=== PATIENT | female | born 1955 | race Caucasian/White ===

== ENCOUNTER → 2018-11-01 | Outpatient (CLI) | payer MEDICARE, MEDICAID, SELFPAY ==
--- NOTE | 2018-10-31 16:30 | LES_PTH ---
PATIENT: ELISE QUINONEZ LOC: [facility] U#:[id number] AGE/SX: 63/F ROOM: RE11/01/[address]: Dr. Don Sanchez MD : [id number] BED: DIS: 11/01/2018 SPEC #: [id number] RECD: 10/31/18 17:43 STATUS: MARCIN REAna #: [id number] TAMRA: 10/31/18 16:[address]: Don Sanchez DEPT: SURGICAL PATHOLOGY RECD BY: Rudy Raymond ENTERED: 11/02/18 11:16 SP TYPE: Lesion OTHR DR: Dr. Jose Tafoya, DO Tissues: Skin of eyelid, NOS Procedures: Surgery Specimen Level IV HEADER OPERATION: Lesion biopsy RLL PRE-OP DIAGNOSIS: Ulcerated lesion RLL present x six months 0.5 cm TISSUE SUBMITTED: Lesion biopsy RLL MICROSCOPIC DIAGNOSIS RLL lesion, biopsy: Benign verrucous keratosis with focal seborrheic keratosis-like features. Negative for malignancy. CHRIS:ziyad 11/03/18 MICROSCOPIC DESCRIPTION Slides are reviewed. GROSS DESCRIPTION Received in fixative is one container labeled with the patient's name and designated right lower lid lesion. The specimen consists of a piece of guadalupe-white skin measuring 0.3 x 0.3 x 0.1 cm. The specimen is totally submitted in one cassette. / CHRIS:ziyad 11/02/18 TC:5 CPT: 70366
== END | disposition home or self-care (01) ==
LOC: LABSPEC 07:36
PROVIDERS: Family Provider Student in an Organized Health Care Education/Training Program; PCP Student in an Organized Health Care Education/Training Program; Referring Provider Ophthalmology; Visit Provider Ophthalmology
DX: L82.0 Inflamed seborrheic keratosis (principal)
CPT/HCPCS: 88305

== ENCOUNTER 2020-05-20 11:40 | Day surgery (SDC) | payer MEDICARE, MEDICAID, SELFPAY ==
--- NOTE | 2020-05-17 20:15 | PCM.HP.BLA ---
History and Physical Date of Admission: 05/20/20 HISTORY AND PHYSICAL ? Vandana Vernon 1955 ? ? REFERRING PHYSICIAN: Antony Maldonado MD ? CHIEF COMPLAINT: port placement ? HPI: The patient is a 65 year old female presents with metastatic lung cancer and need for chemotherapy and thus need for VAD. She denies previous central line placements. She denies fractures of clavicle or ribs. She denies previous deep venous thromboses. She does note bruising easily. She has a chronic cough. ? ? PAST MEDICAL HISTORY Acid reflux ? Anxiety ? Asthma ? COPD (chronic obstructive pulmonary disease) (HCC) ? DJD (degenerative joint disease), lumbar ? Hypercholesterolemia ? Hypertension ? Metastatic lung cancer ? PAST SURGICAL HISTORY ? APPENDECTOMY ? ? ? DELIVERY ONLY ? 1987,1991 ? , low transverse ? ? Medications ? LORazepam (ATIVAN) 0.5 mg Take 0.5-1 tablets by mouth three times daily as needed for up to 30 days. ? ibuprofen (MOTRIN) 800 mg tablet Take 1 tablet by mouth every 8 hours as needed for Pain. Take with food. ? VITAMIN E ORAL Take 1 capsule by mouth once daily. ? budesonide-formoterol (SYMBICORT) 160-4.5 mcg/actuation inhaler Inhale 2 Puffs as instructed twice daily. ? lisinopril (ZESTRIL, PRINIVIL) 40 mg tablet Take 1 tablet by mouth once daily. ? amLODIPine (NORVASC) 5 mg tablet Take 1 tablet by mouth once daily. ? escitalopram oxalate (LEXAPRO) 20 mg tablet Take 1 tablet by mouth once daily. ? albuterol HFA (VENTOLIN HFA) 90 mcg/actuation inhaler Inhale 2 Puffs as instructed every 4 hours as needed for Wheezing/Shortness of Breath. ? Calcium Citrate 250 mg calcium tab 2 tablets twice daily with meal ? Cholecalciferol, Vitamin D3, 125 mcg (5,000 unit) cap Take 1 capsule by mouth once daily. With a meal ? vitamin b complex tab Take 1 tablet by mouth once daily. In the morning ? pravastatin (PRAVACHOL) 20 mg tablet Take 1 tablet by mouth once daily. ? albuterol (PROVENTIL) 2.5 mg /3 mL (0.083 %) nebulizer solution Use 3 mL via nebulizer every 4 hours as needed for Wheezing/Shortness of Breath. Use over 5-15minutes. ? pantoprazole DR (PROTONIX) 20 mg tablet Take 1 tablet by mouth daily before breakfast. Take on empty stomach, 1/2 hr before meal. ? tiotropium bromide (SPIRIVA RESPIMAT) 2.5 mcg/actuation mist inhale 2 puffs by mouth once daily as directed ? polyethylene glycol 3350 (MIRALAX) 17 gram/dose powder Mix one capful in a non-carbonated beverage once a day ? COMPOUNDED PRESCRIPTION NEBULIZER KIT, MEDICINE CUP, TUBING AND SUPPLIES, FILTERS DX J45.909 ? ? ALLERGIES: Penicillins, Sudafed [Pseudoephedrine Hcl], and Zoloft [Sertraline Hcl] ? PERSONAL HISTORY: Social History Tobacco Use ? Smoking status: Former Smoker ? ? Packs/day: 1.00 ? ? Years: 45.00 ? ? Pack years: 45.00 ? ? Types: Cigarettes ? ? Quit date: 04/25/2018 ? ? Years since quittin.0 ? Smokeless tobacco: Never Used Substance Use Topics ? Alcohol use: No ? Drug use: No ? FAMILY HISTORY ? Diabetes Mother ? ? COPD Mother ? ? 80 ? Cancer Father ? ? 50 ? Diabetes Maternal Grandmother ? ? Cancer Sister ? ? Lung 74 ? ? REVIEW OF SYSTEMS: General - denies fevers, denies anorexia, denies weight loss Cardiovascular - denies chest pain, denies history of [place] Pulmonary - has shortness of breath, denies coughing up blood Gastrointestinal - has acid reflux, denies abdominal pain, denies hematemesis, denies blood in stools Neurological - denies seizures, denies chronic numbness/weakness of extremities, denies chronic headaches Genitourinary - denies burning with urination, denies blood in urine Hematological - denies spontaneous/prolonged bleeding Skin - denies nonhealing skin wounds Musculoskeletal - has back pain, had foot fracture in past Endocrine - denies diabetes, no thyroid problems Psychological ? denies hallucinations ? PHYSICAL EXAMINATION: General: The patient is 65 year old female, well nourished, well hydrated in no acute distress. The patient is oriented to time, place, and person. VITALS: Blood pressure 162/94, pulse 102, temperature 36.9 ?C (98.4 ?F), temperature source Temporal, resp. rate 28, Ht: 5'3 weight 89.8 kg (198 lb), SpO2 92 %. Body mass index is 35.92 kg/m?. Head ? Normocephalic. EOM intact with sclera clear and no icterus noted. Mouth with mucus membranes moist. Neck - supple with no jugular venous distention noted. Trachea is midline. Lungs ? decreased breath sounds. No rales/rhonchi/wheezing noted. No labored breathing noted, such as retractions. No cough heard. Heart ? normal S1 and S2 auscultated. No rubs/clicks/murmurs noted. Regular rate. Abdomen ? soft and benign. Normal bowel sounds. No abdominal bruits noted. Difficult to determine if any masses or organomegaly due to body habitus. Extremities ? no calf tenderness noted. No pitting edema noted. Skin ? normal skin integrity. Neurological ? gait normal, no focal deficits noted. Psych ? calm and appropriate ? ? IMPRESSION: metastatic lung cancer - need for IV access ? PLAN: I have discussed the above with the patient and her son who is present with her. I have offered placement of portacath. I have explained the procedure to the patient. I have counseled the patient as to the risks of the procedure, including but not limited to: infection, bleeding, injury to any blood vessels/nerves, scar tissue, injury to the lungs such as hemothorax and/or pneumothorax, thromboses of blood vessels, line sepsis, infection of port, non functioning of port, inability to place VAD, wound infections, complications of anesthesia, etc. ? the patient understands. ? The patient was offered a surgery/procedure at a [facility] facility. The provider and patient have discussed in detail the risk of exposure to and/or potential harm posed by the COVID-19 virus with having a surgery/procedure at this time versus the risk of? delaying the surgery/procedure. It is not possible to know either the risk of delaying the surgery or procedure or chance of getting an infection with perfect accuracy, but a joint decision was made between the patient and the provider ?to proceed at this time with the scheduled surgery/procedure. ? The patient wishes to proceed. I have answered all questions to the patient?s satisfaction and the patient has no further questions.
[2020-05-20] VITALS (7 sets, daily range): BP systolic 109–132; BP diastolic 80–97; PULSE 93–98; RESP 16; TEMP 36.2–37.3; O2SAT 94–100; BMI 35.2
[2020-05-20] MEDS: Lactated Ringers 1,000 ML 75 ML IV (12:20)
--- NOTE | 2020-05-20 14:01 | PCM.OPRPT ---
Report of Operation Date of Procedure: 05/20/20 Pre-Operative Diagnosis: metastatic lung cancer, need for IV access with portacath Post-Operative Diagnosis: same Surgery/Procedure Performed:: placement of permanent indwelling tunnelled catheter in right internal jugular vein with subcutaneous port Description of Surgical Findings:: normal right IJ anatomy to SVC Type of Anesthesia:: Local MAC Anesthesiologist: Herbie Ko Specimen's removed: none Estimated Blood Loss (mL): < 10 ml Fluids Replaced: 1000 ml RL Description of Procedure: After informed consent was given, the patient was brought to the Operating Room. Appropriate time out protocol was followed. The patient was then placed in the supine position. The patient was then given IV conscious sedation for anesthesia. The patient?s upper chest and neck were then prepped with a surgical skin preparation and sterile surgical drapes were placed. The ultrasound machine was used for real time imaging. The ultrasound transducer was placed in a sterile sheath. After proper landmarks were ascertained, the skin at the right neck and chest area were infiltrated with local anesthetic. Using the ultrasound transducer, the needle trocar was directed into the right internal jugular vein. There was good aspiration of venous blood. A wire was then threaded into the needle trocar and this was visualized under fluoroscopy to ensure that the wire was in the right internal jugular vein. Once this was done, then the needle trocar was removed. A small skin jewels was made with an 11 blade knife at the wire entrance site. The dilator with the introducer sheath attached was then placed over the wire into the right internal jugular vein via the Seldinger technique and this was visualized under fluoroscopy. The dilator and sheath were in proper position as visualized by fluoroscopy in real time. The wire and dilator were then removed. The catheter was then threaded into the introducer sheath and was positioned with its tip at the junction of the superior vena cava and the right atrium as visualized under fluoroscopy in real time. I personally reviewed all of the above fluoroscopic images and noted that the positions of the wire and catheter were correct so that the next step could be conducted. The catheter was flushed with a heparin saline mixture prior to placement. A subcutaneous pocket was then created caudad to the catheter insertion site. A transverse skin incision was made after the skin and subcutaneous tissues were infiltrated with local anesthetic. Blunt dissection was then used to create a space large enough for placement of the subcutaneous port. Hemostasis was carefully controlled with electrocautery. The port was sutured to the subcutaneous fascia using vicryl suture at three sites. The catheter was then tunneled into the subcutaneous pocket. The excess catheter was transected. The catheter was then attached to the subcutaneous port using montessori toddler teacher?s guidelines. The port was then placed in the subcutaneous pocket and the sutures were ligated. The subdermal incisional sites were reapproximated with interrupted vicryl suture. The skin was reapproximated with monocryl suture in a subcuticular fashion. Cavilon and steristrips were used for reinforcement of the skin closure and a sterile opsite dressing was applied. Sponge, needle, and instrument count were verified and correct at the time of skin closure. The patient was brought to the Recovery Room in stable condition Grafts/Implants Used: PowerPort Lot [id number] exp 2021-10-31 - Complications none noted - Admit VTE Documentation VTE Present on Admission: Yes VTE Mechan Device Prophylaxis: SCD's
--- NOTE | 2020-05-20 14:07 | DCINST_ITS ---
Discharge Diet: No Restrictions Discharge Activity: Return to Normal Activity, May not drive while taking narcotic pain medications. Call your doctor if your incision/area has: Continuous Slow Oozing, Foul Smelling Discharge Call your doctor if you observe: Fever of 101 or Higher Additional Instructions: Recommended pain control regimen - May take 600 mg ibuprofen (Motrin) and then in 3-4 hours, may take 650 mg acetaminophen (Tylenol), then in 3-4 hours may take 600 mg ibuprofen, then in 3- 4 hours may take 650 mg acetaminophen and so on for 2-3 days May take narcotic pain medication for pain that is not controlled by above and at night for comfort through the night Leave dressings in place May get dressings wet in shower - do not scrub in the area and pat dry Do not soak - no tub baths/swimming Allergies/Adverse Reactions: Allergies pseudoephedrine HCl [From Sudafed] Allergy (Verified 04/24/16 18:07) Shortness of breath sertraline [From Zoloft] Allergy (Verified 05/16/20 14:01) Shortness of breath Medications to take at Discharge Albuterol Inhaler [Ventolin Hfa] 1 - 2 puff INHALATION Q4H PRN PRN #1 inhaler 05/24/15 Amlodipine [Norvasc] 5 mg PO DAILY #30 tablet 05/24/15 Lisinopril [Zestril] 40 mg PO DAILY #30 tablet 05/24/15 Omeprazole [Prilosec] 40 mg PO DAILY 04/24/16 Budesonide/Formoterol 160/4.5 [Symbicort 160/4.5 Mcg Inhaler (SP)] 2 puff INHALATION BID 05/16/20 Cyanocobalamin (Vitamin B-12) [Vitamin B-12] 50 mcg PO DAILY 05/16/20 Escitalopram Oxalate 20 mg PO DAILY 05/16/20 Lorazepam [Ativan] 0.5 mg PO TID 05/16/20 Pantoprazole Sodium [Protonix] 20 mg PO DAILY 05/16/20 Vitamin E Mixed [Vitamin E] 1,000 unit PO 05/16/20 Hydrocodone Bitart/Apap 5-325 [[place] 5MG-325MG] 1 tablet PO Q4H PRN PRN 5 Days #20 tablet 05/20/20 The following prescriptions were given: Hydrocodone Bitart/Apap 5-325 [[place] 5MG-325MG] 1 tablet PO Q4H PRN PRN 5 Days #20 tablet PRN Reason: Pain Transmission Status: Received by [facility] Primary Care Physician: Jose Tafoya DO [Primary Care Provider] - Test Results: Test results from this visit will be discussed in further detail at your follow- up appointment, if applicable. Please Follow Up With: Elicia Carver MD - call if any questions/concerns - no follow up required to avoid exposure in this COVID crisis When: follow up in oncology clinic
--- NOTE | 2020-05-20 14:18 | RAD_ITS ---
STUDY: X-RAY CHEST REASON FOR EXAM: Female, 65 years old. PCXR FOR PORT INSERTION TECHNIQUE: Single AP portable view of the chest. COMPARISON: None. FINDINGS: A right-sided luz catheter as been placed. The tip is in the midportion of the superior vena cava. Patchy infiltrates in both lower lobes slightly worse on the left side. There is no demonstrated pleural abnormality. Normal size heart. Normal mediastinum and danny. Normal visualized pulmonary arteries. There is atherosclerotic calcification of the aortic arch with tortuosity. There are diffuse degenerative changes of the visualized thoracic spine. Normal visualized ribs, clavicles, and shoulders. Hiatal hernia. RAD/CXR for Line Placement IMPRESSION: The tip of the right portacatheter is in the midportion of the superior vena cava. Bibasilar atelectasis and/or infiltrates worse at the left lung base. Hiatal hernia. Electronically Signed: Robert Petty, at 14:33 EST , Service support ,
== END 2020-05-20 15:22 | disposition home or self-care (01) ==
LOC: SDC 11:41 → AC 11:44
PROVIDERS: PCP Student in an Organized Health Care Education/Training Program; Referring Provider Surgery; Visit Provider Surgery
PROC: (CPT 36561; principal; 2020-05-20 13:15)
DX: Z45.2 Encounter for adjustment and management of vascular access device (principal); C34.90 Malignant neoplasm of unspecified part of unspecified bronchus or lung; C79.9 Secondary malignant neoplasm of unspecified site; I10 Essential (primary) hypertension; J44.9 Chronic obstructive pulmonary disease, unspecified; E78.00 Pure hypercholesterolemia, unspecified; K21.9 Gastro-esophageal reflux disease without esophagitis; F32.9 Major depressive disorder, single episode, unspecified; F41.9 Anxiety disorder, unspecified; Z88.0 Allergy status to penicillin; Z79.51 Long term (current) use of inhaled steroids; Z79.899 Other long term (current) drug therapy; Z87.891 Personal history of nicotine dependence; Z20.828 Contact with and (suspected) exposure to other viral communicable diseases
CPT/HCPCS: 00532; 36561; 71045; 77001; 87426; C9803; J7120; C1788; J2405

== ENCOUNTER 2020-09-17 12:45 | Inpatient (IN) | payer MEDICARE, MEDICAID, SELFPAY ==
[2020-05-20 12:12] VITALS: BMI 35.2
[2020-09-17] VITALS (22 sets, daily range): BP systolic 85–109; BP diastolic 53–77; PULSE 97–134; RESP 17–25; TEMP 36.3–37.7; O2SAT 91–100; BMI 34.0
--- NOTE | 2020-09-17 13:04 | EKG12_ITS ---
Test Reason : SOB Blood Pressure : / mmHG Vent. Rate : 129 BPM Atrial Rate : 129 BPM P-R Int : 130 ms QRS Dur : 074 ms QT Int : 302 ms P-R-T Axes : 020 030 058 degrees QTc Int : 442 ms Sinus tachycardia Otherwise normal ECG Confirmed by ANGELA CARDONA, GISSEL ([id number]), editor publications AKIRA HELM ([id number]) on 09/18/2020 12:46:20 PM Referred By: ALAYNA/SHANIKA Confirmed By:GISSEL MILLER MD
--- NOTE | 2020-09-17 13:07 | NURSING ---
NO OLD EKGS
[2020-09-17] MEDS: Albuterol 2.5 MG/3 ML VIAL.NEB. INHALATION ×4 (13:20→18:51)
[2020-09-17] MEDS: Ipratropium/Albuterol Sulfate 3 ML AMPUL.NEB INHALATION (13:22)
[2020-09-17] MEDS: Morphine 4 MG/ML Syringe IV (13:38)
[2020-09-17] MEDS: Acetaminophen 500 MG Tablet 1000 MG PO (13:38)
[2020-09-17 13:39] LABS: Absolute Neutrophil Count 15.7 X10^3/uL (2.0-7.7); Basophil# 0.03 X10^3/uL; Basophil% 0.2 % (0-1); Hematocrit 26.8 % (37-47); Hemoglobin 8.8 g/dL (12.0-15.0); Lymphocyte % 4.5 % (19-41); Mean Corp Hgb Conc 32.8 g/dL (32-36); Mean Corpuscular Hgb 35.9 pg (27.0-32.0); Mean Corpuscular Volume 109.4 fL (81-99); Mean Platelet Vol. 9.3 fl (6.2-12.0); Monocyte# 1.19 X10^3/uL; Monocyte% 6.6 % (0-10); NRBC Flagged by Analyzer 0 % (0-5); Neutrophil # 15.74 X10^3/uL (2.7-7.7); Neutrophil % 87.8 % (47-70); POSITIVE MORPHOLOGY YES; Platelet Count 293 K/mm3 (150-450); RBC Distribution Width CV 21.9 % (11.6-14.6); RBC Distribution Width SD 87.4 fl (35.1-43.9); Red Blood Count 2.45 M/mm3 (4.2-5.4); White Blood Count 17.9 K/mm3 (4.4-11.0)
[2020-09-17] MEDS: Ondansetron 4 MG/2 ML Vial IV (13:39)
[2020-09-17] MEDS: MethylPREDNISolone 125 MG/2 ML Vial IV (13:39)
[2020-09-17 13:42] LABS: Differential Indicated SCAN CRITERIA MET
[2020-09-17 13:48] LABS: International Normalized Ratio 1.1; Prothrombin Time (Protime)PT. 14.2 SECONDS (11.7-14.9)
--- NOTE | 2020-09-17 13:50 | RAD_ITS ---
STUDY: X-RAY CHEST REASON FOR EXAM: Female, 65 years old. Cough TECHNIQUE: Single AP portable view of the chest. COMPARISON: Comparison is made with prior study dated 05/20/2020. FINDINGS: A right-sided Port-A-Cath is in situ with the tip in the midportion of the superior vena cava. This is unchanged. EKG electrodes are seen. Since prior study, there has been increase in the bibasilar markings worse at the left base suggestive of superimposed infiltrates on chronic basilar scarring. Hyperinflation. Decreased bronchovascular markings in the upper lobes suggestive of COPD. Normal size heart. Normal mediastinum and danny. Normal visualized pulmonary arteries. There is atherosclerotic calcification of the aortic arch with tortuosity. Normal visualized thoracic spine. Normal visualized ribs, clavicles, and shoulders. There is no demonstrated abnormality of the visualized soft tissue structures of the upper abdomen. RAD/Chest 1 View (Portable) IMPRESSION: Findings suggestive of bibasilar infiltrates worse on the left side superimposed on chronic basilar scarring. Electronically Signed: Robert Petty MD at 14:23 EDT , Service support ,
[2020-09-17 13:56] LABS: ALB/GLOB Ratio 0.8 RATIO (0.9-2.4); AST(SGOT) 22 U/L (15-37); Alanine Aminotransfer ALT/SGPT 24 U/L (13-56); Albumin, Serum 2.9 g/dL (3.2-5.0); Alkaline Phosphatase 57 U/L (45-117); Anion Gap 6 (5-15); BUN 17 mg/dL (7-18); Calcium,Total 8.7 mg/dL (8.5-10.1); Chloride 101 mmol/L (98-107); Creatinine, Serum 1.13 mg/dL (0.55-1.02); EST Glomerular Filtration Rate 51 mL/min (>60); Est Glom Filt Rate - Afr Amer 62 mL/min (>60); Estimated Creatinine Clearance 43.47 ml/min; Globulin 3.8 g/dL (2.2-4.2); Glucose 128 mg/dL (74-106); Potassium 4.9 mmol/L (3.5-5.1); Protein, Total 6.7 g/dL (6.4-8.2); Sodium Level 134 mmol/L (136-145)
[2020-09-17 14:01] LABS: Anisocytosis 2+; Differential Comment SCANNED; Macrocytosis 1+; Red Cell Morphology N CHROM NORMAL (NORM C&C); Stomatocyte 1+
[2020-09-17 14:03] LABS: Lactic Acid 1.4 mmol/L (0.4-1.9)
--- NOTE | 2020-09-17 14:09 | CT_ITS ---
STUDY: CTA CHEST REASON FOR EXAM: Female, 65 years old. PE RADIATION DOSAGE (If Supplied By Facility): CTDIvol = ( 10.75 ) mGy, DLP = ( 440.95 ) mGycm TECHNIQUE: The examination was performed with the intravenous administration of IV 100mL [id number]-370. Post-processing of the angiographic images was performed, with multiplanar reformation and 3D reconstruction. Individualized dose optimization techniques were used for this CT. COMPARISON: Comparison is made with prior chest radiograph done earlier in the day. FINDINGS: Normal enhancement of the main pulmonary artery and right and left pulmonary arteries. Normal enhancement of the bilateral peripheral pulmonary arteries. There is no demonstrated pulmonary embolism. Normal thoracic aorta and visualized great vessels. There is no demonstrated aortic dissection. There are calcifications of the coronary arteries. Normal mediastinum. Normal hilar regions. Normal visualized trachea and bronchi. Hyperinflation. Emphysematous changes with centrilobular emphysema seen in the upper lobes. There is a 1.4 cm x 0.8 cm nodular density in the posterior medial segment of the right upper lobe. Focal infiltrate is present within the posterior aspect of the right middle lobe. Possible 1.2 cm spiculated nodule in the anterior lateral aspect of the right middle lobe as seen on axial image #106 and coronal image #83. Follow-up examination is suggested. There is also evidence of scarring in the lingular segment of the left upper lobe. There is evidence of a consolidation with airspace disease at the left lung base superimposed on chronic scarring. There is also evidence of a 5.1 mm pleural-based nodule in the lateral aspect of the right lower lobe as seen on axial image #55. Normal chest wall structures. There are degenerative changes of thoracic spine. Fatty infiltration of the liver. CT/CTA Chest W/WO Contrast IMPRESSION: Consolidation in the left lower lobe superimposed on chronic scarring. Focal infiltrate in the right middle lobe as well as scarring in the lingular segment of the left upper lobe. Nodular density seen in the right lung as described. Follow-up is recommended following clearing. Electronically Signed: Robert Petty MD at 14:45 EDT , Service support ,
[2020-09-17] MEDS: 0.9% Normal Saline 1,000 ML 999 ML IV ×3 (14:56→17:06)
--- NOTE | 2020-09-17 15:09 | ED.VISSUMM ---
- ER Visit Summary Date of Service: 09/17/20 Chief Complaint: Shortness of breath History of Present Illness: The patient is a [address] Tafoya and Dr. Maldonado. She is a poor informant the majority of the history is through her son. She reports his chronic shortness of breath got worse yesterday. It is severe at worst mild currently. Is worsened by exertion and coughing. Is relieved by oxygen. Patient reports that she has had a dry cough for the past 2 months that is occasionally productive of clear sputum. She has a fever to 100.4 degrees and chills. She denies any chest pain. She denies sick contacts. She does wear a mask. She has not had the vaccine. Physical Examination: Vitals: 99.4, 105/66, 120, 25, 95% on room air which is not hypoxic. General: Well-nourished and well-developed. Head: Normocephalic atraumatic. Neck: Supple, no lymphadenopathy. No JVD. Nontender. Cardiovascular: Tachycardic regular rhythm with a 2 out of 6 systolic murmur. Respiratory: Mild respiratory distress. Moderate wheezing bilaterally with decreased air movement. Abdominal: Soft, nontender, nondistended, normal bowel sounds. No guarding, rebound, or peritoneal signs. Back: Nontender. Extremities: Nontender, no edema. Skin: Normal color, no rash. Neurologic: Alert and oriented ?3. Cranial nerves II through XII are intact. Normal strength and sensation. Psych: Normal affect. Test Results: EKG sinus tach [address] changes. CBC shows a white count of 17.9 with an H&H of 8.8 and 26.8, second neutrophils 88, lymphocytes 5. Chem-7 shows a sodium 134 and creatinine 1.13. Glucose is 128. LFTs show an albumin of 2.9. INR is 1.1. PTT is 30.0. Lactic acid is 1.4. Rapid antigen Covid is negative. Clinical Impression(s) from Imaging Studies Chest X-Ray 09/17/20 13:50 IMPRESSION: Findings suggestive of bibasilar infiltrates worse on the left side superimposed on chronic basilar scarring. Electronically Signed: Robert Petty MD at 14:23 EDT , Service support , Chest CTA 09/17/20 14:09 IMPRESSION: Consolidation in the left lower lobe superimposed on chronic scarring. Focal infiltrate in the right middle lobe as well as scarring in the lingular segment of the left upper lobe. Nodular density seen in the right lung as described. Follow-up is recommended following clearing. Electronically Signed: Robert Petty MD at 14:45 EDT , Service support , Emergency Department Course and Treatment: Patient was given albuterol and Atrovent aerosols. She was given Solu-Medrol, Rocephin, and Zithromax IV. Her blood pressure did decrease into the mid 90s. She is given 30 cc/kg bolus of normal saline. She is resting more comfortably. Treatment Plan: Patient was discussed with Dr. Wagoner. She will be admitted the hospital for further evaluation and treatment. Disposition: Admitted in serious condition. Impression: 1. Pneumonia. 2. Septic shock. 3. COPD. 4. Lung cancer. 5. Critical care time 33 minutes. This note was generated with [employer] dictation software. It may contain incorrect words, spelling, and punctuation that were not noted in review of the chart prior to signing ED Disposition - Plan for ED Patient: Referrals: Jose Tafoya DO [Primary Care Provider] -
--- NOTE | 2020-09-17 15:14 | HP.PCM_ITS ---
Problem List (1) Pneumonia Status: Acute Qualifiers: Pneumonia type: due to unspecified organism Laterality: bilateral Lung location: lower lobe of lung Qualified Code(s): J18.9 - Pneumonia, unspecified organism (2) Lung cancer Status: Acute (3) Hypertension Status: Chronic Qualifiers: Hypertension type: unspecified Qualified Code(s): I10 - Essential (primary) hypertension (4) Hyperlipidemia Status: Chronic Qualifiers: Hyperlipidemia type: unspecified Qualified Code(s): E78.5 - Hyperlipidemia, unspecified (5) Anxiety and depression Status: Chronic History of Present Illness Date of Admission: 09/17/20 Chief Complaint: SOB - 1 week The patient is a 65 year old F with past medical history of stage IV non-small cell lung CA, follows with oncology in the outpatient, on palliative immunotherapy/chemotherapy, asthma/COPD in with progressive shortness of breath ongoing for the past 2 to 3 weeks, worse 1 day prior to admission. Patient denies any fever or but admits to chills. She denies any sick contact. She does not go out of the house except for appointments. She lives with his son and his . She denied any orthopnea or bilateral leg swelling. Vitals in the ED showed temperature of 99.9F, heart rate 134, blood pressure 105/66, respiratory rate was 20, SPO2 was 91% on room air. Patient's blood pressure dropped to the 80s. She received IV fluids 30 mils per KG. BP appears to have improved. WBC count was 17.9, hemoglobin 8.8, platelet count 293. INR is 1.1. Sodium was 134, potassium 4.9, chloride 101, bicarbonate 27, BUN 17, creatinine is 1.13, (previous creatinine in the system in 2016) was 0.94. UA was unremarkable. COVID-19 PCR was pending. Patient's admitting chest x-ray was suggestive of bibasilar infiltrates, worse on the left side, superimposed on chronic basilar scarring. CTA of the chest showed consolidation in the left lower lobe, superimposed on chronic scarring, focal infiltrate in the right middle lobe as well as scarring just lingular segment of the left upper lobe. Past Medical History Past Medical History (Chronic Problems): Chronic Problems Hypertension (Chronic) Hyperlipidemia (Chronic) Anxiety and depression (Chronic) Allergies Iodinated Contrast Media [CONTRASTS] Allergy (Verified 09/17/20 12:47) Shortness of breath pseudoephedrine HCl [From Sudafed] Allergy (Verified 09/17/20 12:46) Shortness of breath sertraline [From Zoloft] Allergy (Verified 09/17/20 12:46) Shortness of breath Home Medications: Ambulatory Orders Medication Instructions Recorded Albuterol Inhaler [Ventolin Hfa] 2 puff INHALATION Q4H PRN PRN 09/17/20 Amlodipine [Norvasc] 5 mg PO DAILY 09/17/20 Calcium Citrate 500 mg PO BIDCM 09/17/20 Cholecalciferol (Vitamin D3) 2,000 unit PO DAILY 09/17/20 [Vitamin D3] Escitalopram Oxalate [Lexapro] 20 mg PO DAILY 09/17/20 Esomeprazole Magnesium 40 mg PO BID 09/17/20 Famotidine 20 mg PO QHS 09/17/20 Folic Acid 1 mg PO DAILY@0800 09/17/20 Gabapentin [Neurontin] 300 mg PO TID 09/17/20 Lisinopril [Zestril] 20 mg PO DAILY 09/17/20 Lorazepam [Ativan] 0.5 mg PO TID 09/17/20 Magnesium Chloride [Slow-Mag] 71.5 mg PO BID 09/17/20 Potassium Chloride [Klor-Con M10] 10 meq PO BID 09/17/20 Pravastatin [Pravachol] 20 mg PO DAILY 09/17/20 Prochlorperazine Maleate 10 mg PO Q6H PRN PRN 09/17/20 [Compazine] Trazodone HCl 50 - 100 mg PO QHS 09/17/20 Vitamin E 1,000 unit PO DAILY 09/17/20 Smoking Status: Former smoker VTE Information - Inpt Only VTE Present on Admission: No VTE Pharm Prophylaxis ordered?: Yes Patient Problems: Active and Suspected Problems Pneumonia (Acute) - Physical Exam Vitals/I&O's: Vital Signs Temp Pulse Resp BP Pulse Ox 99.4 F H 122 H 20 H 93/53 L 95 09/17/20 14:05 09/17/20 14:05 09/17/20 14:05 09/17/20 14:05 09/17/20 14:05 Oxygen Flow Rate (L/min) 2 Oxygen Delivery Method Room Air Weight: 92.7 kg Body Mass Index (BMI) 34.0 General: Alert, Oriented x3, Cooperative HEENT: Atraumatic, PERRLA, EOMI, Normocephalic Neck: Supple, No JVD, Negative Carotid Bruits Lungs: Clear to auscultation, Normal air movement Cardiovascular: Regular rate, No murmurs Abdomen: Bowel Sounds Present, Soft, Non Tender Extremities: No edema, Capillary Refill Less than 3 Seconds Skin: No rashes, No breakdown Musculoskeletal: No Tenderness to Palpation of Joints or Extremities Neurological: Cranial nerves II-XII grossly intact Psych/Mental Status: Normal Affect, Appropriate Microbiology Past 72 Hours 09/17/20 13:15 Mucosa - Nose SARS-CoV-2 Antigen (Rapid) - Final Laboratory Results 09/17/20 13:28: WBC 17.9 H, RBC 2.45 L, Hgb 8.8 L, Hct 26.8 L, MCV 109.4 H, MCH 35.9 H, MCHC 32.8, RDW Std Deviation 87.4 H, RDW Coeff of Amanuel 21.9 H, Plt Count 293, MPV 9.3, Immature Gran % (Auto) 0.900, Neut % (Auto) 87.8 H, Lymph % (Auto) 4.5 L, [place] % (Auto) 6.6, Eos % (Auto) 0.0, Baso % (Auto) 0.2, Absolute Neuts (auto) 15.7 H, Absolute Lymphs (auto) 0.80 L, Nucleated RBC % 0, Differential Comment SCANNED, RBC Morphology N CHROM, Anisocytosis 2+, Macrocytosis 1+, Stomatocytes 1+ 09/17/20 13:28: PT 14.2, INR 1.1, APTT 30.0 09/17/20 13:28: Sodium 134 L, Potassium 4.9, Chloride 101, Carbon Dioxide 27.0, Anion Gap 6, BUN 17, Creatinine 1.13 H, Estim Creat Clear Calc 43.47, Est GFR (MDRD) Af Amer 62, Est GFR (MDRD) Non-Af 51 L, BUN/Creatinine Ratio 15.0, Glucose 128 H, Calcium 8.7, Total Bilirubin 0.30, AST 22, ALT 24, Alkaline Phosphatase 57, Total Protein 6.7, Albumin 2.9 L, Globulin 3.8, Albumin/Globulin Ratio 0.8 L 09/17/20 13:28: Lactic Acid 1.4 Current Medications Azithromycin 500 mg/ Dextrose 255 mls @ 250 mls/hr IV X1 ONE Stop: 09/17/20 15:48 Ceftriaxone Sodium 2 gm/ (Sodium Chloride) 50 mls @ 100 mls/hr IV X1 ONE Stop: 09/17/20 15:16 Sodium Chloride () 1,000 mls @ 999 mls/hr IV .Q1H1M MELANIE; Protocol Stop: 09/17/20 16:47 Assessment/Plan All Active Problems Pneumonia (Acute) Lung cancer (Acute) 1. Severe sepsis secondary to pneumonia, likely postobstructive Patient with underlying lung CA, on palliative immunotherapy/chemotherapy WBC count is 17.9, lactic acid is 1.4 Started on IV ceftriaxone and azithromycin; switch to IV Zosyn COVID-19 rapid antigen was negative, blood cultures are pending Will request for COVID-19 PCR also during patient's immunosuppressed state Ecommerce Analyst consult, IV fluids Follow-up on blood cultures, consider de-escalating antibiotics if patient continues to improve 2. Hypotension, history of hypertension, home amlodipine, lisinopril on hold We will continue on IV fluids, will continue to monitor blood pressures 3. Acute kidney injury, prerenal, likely secondary to #1 Baseline creatinine is 0.73, admitted creatinine 1.13 We will continue on IV fluids, repeat blood work in a.m. 4. Acute onset of diarrhea, will check enteric panel 5. Anemia, admitting hemoglobin of 8.8, unclear of recent hemoglobin levels Will repeat CBCD, continue to monitor 6. Anxiety/depression, continue on home Lexapro, Ativan 7. DVT PPx- Heparin SC 8. CODE STATUS?DNR CCA I discussed and explained in details the various types of CODE STATUS-full code, DNR CCA, DNR CC. Patient chose DNR-CCA. She does not want CPR or intubation in the event of a cardiopulmonary arrest. Time spent discussing CODE STATUS 17 minutes Inpatient E&M: 66634 [facility] [place] [facility] L3 Procedures: 07182 Advncd Care Plan 30 Min
--- NOTE | 2020-09-17 15:31 | NURSING ---
ICU PNEUMONIA, SEPTIC SHOCK PAINTSIL
--- NOTE | 2020-09-17 16:13 | NURSING ---
ICU 3
[2020-09-17] MEDS: 0.9% Normal Saline 1,000 ML 125 ML IV (17:07)
[2020-09-17] MEDS: Calcium Carbonate 500 MG Tablet PO (17:11)
[2020-09-17] MEDS: proCHLORPERazine 5 MG Tablet 10 MG PO (17:11)
[2020-09-17 18:28] LABS: Bacteria 0 SEEN /hpf (None Seen); Mucous, Urine 0 SEEN /hpf (<or=2+); Red Blood Cells-Urine 0 SEEN /hpf (0-5); Squamous Epithelial Cells - UA 0 SEEN /hpf (5-10); White Blood Cells 0 SEEN /hpf (0-5)
[2020-09-17 18:32] LABS: Color, Urine Yellow (Yellow); Glucose, Dipstick Normal (Normal); Ketone-Dipstick Negative (Negative); Leukocyte Esterase-Dipstick Negative /ul (Negative); Nitrite-Dipstick Negative (Negative); Occult Blood-Urine Negative /ul (Negative); Protein-Dipstick Negative (Negative); Urine Bilirubin Dipstick Negative (Negative); Urine Clarity Clear (Clear); Urine Urobilinogen Normal (Normal)
[2020-09-17 21:11] LABS: BNP,B-Type NATRIURETIC PEPTIDE 68.5 pg/mL (0-100)
[2020-09-17] MEDS: Famotidine 20 MG Tablet PO (21:40)
[2020-09-17] MEDS: Pantoprazole Sodium 40 MG Tablet PO (21:40)
[2020-09-17] MEDS: Pravastatin 20 MG Tablet PO (21:40)
[2020-09-17] MEDS: LORazepam 0.5 MG Tablet PO (21:42)
[2020-09-17 23:11] LABS: Absolute Lymphocyte Count 0.64 X10^3/uL (0.83-4.51); Basophil# 0.02 X10^3/uL; Basophil% 0.1 % (0-1); Hematocrit 23.5 % (37-47); Hemoglobin 7.4 g/dL (12.0-15.0); Lymphocyte # 0.64 X10^3/ul (4.0); Lymphocyte % 4.4 % (19-41); Mean Corp Hgb Conc 31.5 g/dL (32-36); Mean Corpuscular Hgb 35.4 pg (27.0-32.0); Mean Corpuscular Volume 112.4 fL (81-99); Mean Platelet Vol. 9.3 fl (6.2-12.0); Monocyte# 0.71 X10^3/uL; Monocyte% 4.9 % (0-10); NRBC Flagged by Analyzer 0 % (0-5); Neutrophil # 12.96 X10^3/uL (2.7-7.7); Neutrophil % 89.6 % (47-70); POSITIVE MORPHOLOGY YES; Platelet Count 250 K/mm3 (150-450); RBC Distribution Width CV 22.2 % (11.6-14.6); RBC Distribution Width SD 91.6 fl (35.1-43.9); Red Blood Count 2.09 M/mm3 (4.2-5.4); White Blood Count 14.5 K/mm3 (4.4-11.0)
[2020-09-17 23:12] LABS: Differential Indicated SCAN CRITERIA MET
[2020-09-17 23:53] LABS: Anisocytosis 2+; Differential Comment SCANNED; Macrocytosis 2+; Tear Drop Cell RARE
[2020-09-18] VITALS (20 sets, daily range): BP systolic 92–165; BP diastolic 54–87; PULSE 92–110; RESP 16–24; TEMP 36.3–36.9; O2SAT 92–99
[2020-09-18] MEDS: 0.9% Normal Saline 1,000 ML 125 ML IV ×2 (01:20→08:48)
[2020-09-18 04:29] LABS: Absolute Lymphocyte Count 0.28 X10^3/uL (0.83-4.51); Absolute Neutrophil Count 13.5 X10^3/uL (2.0-7.7); Basophil# 0.02 X10^3/uL; Basophil% 0.1 % (0-1); Hematocrit 24.6 % (37-47); Hemoglobin 7.6 g/dL (12.0-15.0); Lymphocyte # 0.28 X10^3/ul (4.0); Mean Corp Hgb Conc 30.9 g/dL (32-36); Mean Corpuscular Hgb 35.2 pg (27.0-32.0); Mean Corpuscular Volume 113.9 fL (81-99); Mean Platelet Vol. 9.4 fl (6.2-12.0); Monocyte# 0.22 X10^3/uL; Monocyte% 1.6 % (0-10); NRBC Flagged by Analyzer 0 % (0-5); Neutrophil # 13.51 X10^3/uL (2.7-7.7); Neutrophil % 95.5 % (47-70); POSITIVE DIFFERENTIAL YES; POSITIVE MORPHOLOGY YES; Platelet Count 242 K/mm3 (150-450); RBC Distribution Width SD 90.9 fl (35.1-43.9); Red Blood Count 2.16 M/mm3 (4.2-5.4); White Blood Count 14.2 K/mm3 (4.4-11.0)
[2020-09-18 04:31] LABS: Differential Indicated SCAN CRITERIA MET
[2020-09-18 04:48] LABS: ALB/GLOB Ratio 0.6 RATIO (0.9-2.4); AST(SGOT) 19 U/L (15-37); Alanine Aminotransfer ALT/SGPT 18 U/L (13-56); Albumin, Serum 2.3 g/dL (3.2-5.0); Alkaline Phosphatase 50 U/L (45-117); Anion Gap 4 (5-15); BUN 15 mg/dL (7-18); BUN/Creat Ratio 17.4 RATIO (10-20); Calcium,Total 7.8 mg/dL (8.5-10.1); Chloride 108 mmol/L (98-107); Creatinine, Serum 0.86 mg/dL (0.55-1.02); EST Glomerular Filtration Rate 70 mL/min (>60); Est Glom Filt Rate - Afr Amer 85 mL/min (>60); Estimated Creatinine Clearance 57.12 ml/min; Globulin 3.6 g/dL (2.2-4.2); Glucose 147 mg/dL (74-106); Potassium 4.7 mmol/L (3.5-5.1); Protein, Total 5.9 g/dL (6.4-8.2); Sodium Level 138 mmol/L (136-145)
[2020-09-18 04:49] LABS: Anisocytosis 2+; Differential Comment SCANNED
[2020-09-18 04:50] LABS: Macrocytosis 2+; Microcytosis RARE
[2020-09-18 04:51] LABS: Polychromasia RARE
[2020-09-18] MEDS: LORazepam 0.5 MG Tablet PO ×3 (06:34→21:48)
--- NOTE | 2020-09-18 06:48 | PCM.CON.CC ---
Problem List (1) COPD (chronic obstructive pulmonary disease) Status: Chronic Qualifiers: COPD type: emphysema Emphysema type: centrilobular Qualified Code(s): J43.2 - Centrilobular emphysema (2) Small cell lung cancer in adult Status: Acute (3) Pneumonia Status: Acute Qualifiers: Pneumonia type: due to unspecified organism Laterality: bilateral Lung location: lower lobe of lung Qualified Code(s): J18.9 - Pneumonia, unspecified organism (4) Hypertension Status: Chronic Qualifiers: Hypertension type: unspecified Qualified Code(s): I10 - Essential (primary) hypertension (5) Hyperlipidemia Status: Chronic Qualifiers: Hyperlipidemia type: unspecified Qualified Code(s): E78.5 - Hyperlipidemia, unspecified Reason for Consult Date of Consultation: 09/18/20 Reason for Consultation: Severe sepsis History of Present Illness: The patient is a 65 year old F, with past medical history listed below, who presented to [facility] on 09/17/2020 secondary to progressive shortness of breath over the last 24 hours. Patient reportedly follows with the [facility] for oncology and pulmonary, but is a very poor historian and unable to provide much additional information. Patient reportedly has had a cough productive of clear sputum for over the past 2 months. Patient did report a fever of 100.4 ?F and chills at home. Patient had denied any chest pain or sick contacts. Patient has not had a Covid 19 vaccination. Patient reportedly does not use supplemental oxygen at baseline. On presentation to the ER, patient was 95% on room air, tachycardic at 120 bpm and a marginal blood pressure at 105/66. EKG was relatively unremarkable, but lab work showed a leukocytosis of 17.9 with a hemoglobin of 8.8 and a creatinine of 1.13. INR and lactic acid were within normal limits and Covid screening was negative. Chest x-ray had shown bibasilar infiltrates and a CTA of the chest showed no PE, but significant emphysematous changes and focal infiltrates in the left lower and right middle lobe in addition to nodular density and interstitial thickening. Patient was given Solu-Medrol, Rocephin and Zithromax, along with a 30 cc/kg bolus and admitted to the intensive care unit for further evaluation. Patient is a relatively poor historian. Patient does report that she had 2-3 episodes of diarrhea prior to presentation. Patient states that this is typical following chemotherapy. Patient did not report any blood in the bowel movements. Patient believes she has small cell lung cancer, but cannot confirm her chemotherapy regimen. Patient is unable to describe her home regimen for inhalers, but believes she is compliant. Unable to obtain a full review of systems Past Medical History Past Medical History (Chronic Problems): Chronic Problems Hypertension (Chronic) Hyperlipidemia (Chronic) Anxiety and depression (Chronic) COPD (chronic obstructive pulmonary disease) (Chronic) Allergies Iodinated Contrast Media [CONTRASTS] Allergy (Verified 09/17/20 12:47) Shortness of breath pseudoephedrine HCl [From Sudafed] Allergy (Verified 09/17/20 12:46) Shortness of breath sertraline [From Zoloft] Allergy (Verified 09/17/20 12:46) Shortness of breath Home Medications: Ambulatory Orders Medication Instructions Recorded Albuterol Inhaler [Ventolin Hfa] 2 puff INHALATION Q4H PRN PRN 09/17/20 Amlodipine [Norvasc] 5 mg PO DAILY 09/17/20 Calcium Citrate 500 mg PO BIDCM 09/17/20 Cholecalciferol (Vitamin D3) 2,000 unit PO DAILY 09/17/20 [Vitamin D3] Escitalopram Oxalate [Lexapro] 20 mg PO DAILY 09/17/20 Esomeprazole Magnesium 40 mg PO BID 09/17/20 Famotidine 20 mg PO QHS 09/17/20 Folic Acid 1 mg PO DAILY@0800 09/17/20 Gabapentin [Neurontin] 300 mg PO TID 09/17/20 Lisinopril [Zestril] 20 mg PO DAILY 09/17/20 Lorazepam [Ativan] 0.5 mg PO TID 09/17/20 Magnesium Chloride [Slow-Mag] 71.5 mg PO BID 09/17/20 Potassium Chloride [Klor-Con M10] 10 meq PO BID 09/17/20 Pravastatin [Pravachol] 20 mg PO DAILY 09/17/20 Prochlorperazine Maleate 10 mg PO Q6H PRN PRN 09/17/20 [Compazine] Trazodone HCl 50 - 100 mg PO QHS 09/17/20 Vitamin E 1,000 unit PO DAILY 09/17/20 Smoking Status: Former smoker Tobacco Use: Cigarettes Review of Systems Unable to obtain accurate/complete ROS d/t: Poor historian Patient Problems: Active and Suspected Problems Pneumonia (Acute) Lung cancer (Acute) - Physical Exam Vitals/I&O's: Vital Signs Temp Pulse Resp BP Pulse Ox 36.6 C 98 19 H 100/60 98 09/18/20 04:00 09/18/20 05:00 09/18/20 05:00 09/18/20 05:00 09/18/20 05:00 Oxygen Flow Rate (L/min) 3 Oxygen Delivery Method Nasal Cannula Weight: 93.5 kg Body Mass Index (BMI) 34.0 Intake and Output for Last 24 Hours 09/16/20 09/17/20 09/18/20 23:59 23:59 23:59 Intake Total 3024.4 / 3024.4 1050 / 1050 Output Total 225 / 625 650 / 650 Balance 2799.4 / 2399.4 400 / 400 General: Alert, Oriented x3, Cooperative, - - Mild conversational dyspnea HEENT: Atraumatic, PERRLA, EOMI, Normocephalic, - - Nasal cannula in place Oral: Moist Mucosa, No Gingival or Mucosal Lesions/ Ulcerations Neck: Supple, No JVD, No Nodes, Trachea Midline Lungs: No rales, Diminished, Rhonchi - Improves with coughing, Wheezes Cardiovascular: Regular rate, Regular Rhythm, Normal S1, Normal S2, No murmurs, No rub noted, No Gallop Abdomen: Bowel Sounds Present, Soft, Non Tender, Non-Distended, Obese Extremities: No clubbing, No cyanosis, No edema Skin: No rashes, No breakdown Musculoskeletal: No Tenderness to Palpation of Joints or Extremities Lymphatic: No Cervical, Supraclavicular, or Inguinal Adenopathy Neurological: Cranial nerves II-XII grossly intact, Neuro grossly intact, Motor Exam 5/5 strength throughout Psych/Mental Status: Alert and oriented to time, place, person, mood and affect Microbiology Past 72 Hours 09/17/20 18:00 Urine, Clean Catch Legionella Antigen - Final 09/17/20 18:00 Urine, Clean Catch Streptococcus pneumoniae Antigen (M - Final 09/17/20 13:15 Mucosa - Nose SARS-CoV-2 Antigen (Rapid) - Final Laboratory Results 09/17/20 13:28: WBC 17.9 H, RBC 2.45 L, Hgb 8.8 L, Hct 26.8 L, MCV 109.4 H, MCH 35.9 H, MCHC 32.8, RDW Std Deviation 87.4 H, RDW Coeff of Amanuel 21.9 H, Plt Count 293, MPV 9.3, Immature Gran % (Auto) 0.900, Neut % (Auto) 87.8 H, Lymph % (Auto) 4.5 L, [place] % (Auto) 6.6, Eos % (Auto) 0.0, Baso % (Auto) 0.2, Absolute Neuts (auto) 15.7 H, Absolute Lymphs (auto) 0.80 L, Nucleated RBC % 0, Differential Comment SCANNED, RBC Morphology N CHROM, Anisocytosis 2+, Macrocytosis 1+, Stomatocytes 1+ 09/17/20 13:28: PT 14.2, INR 1.1, APTT 30.0 09/17/20 13:28: Sodium 134 L, Potassium 4.9, Chloride 101, Carbon Dioxide 27.0, Anion Gap 6, BUN 17, Creatinine 1.13 H, Estim Creat Clear Calc 43.47, Est GFR (MDRD) Af Amer 62, Est GFR (MDRD) Non-Af 51 L, BUN/Creatinine Ratio 15.0, Glucose 128 H, Calcium 8.7, Total Bilirubin 0.30, AST 22, ALT 24, Alkaline Phosphatase 57, Total Protein 6.7, Albumin 2.9 L, Globulin 3.8, Albumin/Globulin Ratio 0.8 L 09/17/20 13:28: Lactic Acid 1.4 09/17/20 13:28: B-Natriuretic Peptide 68.5 09/17/20 17:25: COVID-19 (THALIA) Not Detected 09/17/20 18:00: Urine Color Yellow, Urine Clarity Clear, Urine pH 5.0, Ur Specific [place] 1.010, Urine Protein Negative, Urine Glucose (UA) Normal, Urine Ketones Negative, Urine Occult Blood Negative, Urine Nitrite Negative, Urine Bilirubin Negative, Urine Urobilinogen Normal, Ur Leukocyte Esterase Negative, Urine RBC 0 SEEN, Urine WBC 0 SEEN, Ur Squamous Epith Cells 0 SEEN, Urine Bacteria 0 SEEN, Urine Mucus 0 SEEN 09/17/20 23:00: WBC 14.5 H, RBC 2.09 L, Hgb 7.4 L, Hct 23.5 L, MCV 112.4 H, MCH 35.4 H, MCHC 31.5 L, RDW Std Deviation 91.6 H, RDW Coeff of Amanuel 22.2 H, Plt Count 250, MPV 9.3, Immature Gran % (Auto) 1.000 H, Neut % (Auto) 89.6 H, Lymph % (Auto) 4.4 L, [place] % (Auto) 4.9, Eos % (Auto) 0.0, Baso % (Auto) 0.1, Absolute Neuts (auto) 13.0 H, Absolute Lymphs (auto) 0.64 L, Nucleated RBC % 0, Differential Comment SCANNED, Anisocytosis 2+, Macrocytosis 2+, Tear Drop Cells RARE 09/18/20 04:15: WBC 14.2 H, RBC 2.16 L, Hgb 7.6 L, Hct 24.6 L, MCV 113.9 H, MCH 35.2 H, MCHC 30.9 L, RDW Std Deviation 90.9 H, RDW Coeff of Amanuel 22.0 H, Plt Count 242, MPV 9.4, Immature Gran % (Auto) 0.800, Neut % (Auto) 95.5 H, Lymph % (Auto) 2.0 L, [place] % (Auto) 1.6, Eos % (Auto) 0.0, Baso % (Auto) 0.1, Absolute Neuts (auto) 13.5 H, Absolute Lymphs (auto) 0.28 L, Nucleated RBC % 0, Differential Comment SCANNED, Polychromasia RARE, Anisocytosis 2+, Microcytosis RARE, Macrocytosis 2+ 09/18/20 04:15: Sodium 138, Potassium 4.7, Chloride 108 H, Carbon Dioxide 26.0, Anion Gap 4 L, BUN 15, Creatinine 0.86, Estim Creat Clear Calc 57.12, Est GFR (MDRD) Af Amer 85, Est GFR (MDRD) Non-Af 70, BUN/Creatinine Ratio 17.4, Glucose 147 H, Calcium 7.8 L, Total Bilirubin 0.20, AST 19, ALT 18, Alkaline Phosphatase 50, Total Protein 5.9 L, Albumin 2.3 L, Globulin 3.6, Albumin/Globulin Ratio 0.6 L Current Medications Acetaminophen (Acetaminophen 325 Mg Tablet) 650 mg PO Q6H PRN PRN PRN Reason: Pain Score 1-10/Temp > 100.7 F Al Hydroxide/Mg Hydroxide (Mag Hydrox/Al Hydrox/Simeth 30 Ml Udc) 30 ml PO Q6H PRN PRN PRN Reason: Gastric Burning Albuterol Sulfate (Albuterol 2.5 Mg/3 Ml Vial.Neb.) 2.5 mg INHALATION Q4H PRN PRN Reason: Wheezing Last Admin: 09/17/20 18:51 Dose: 2.5 mg Documented by: Calcium Carbonate (Calcium Carbonate 500 Mg Tablet) 500 mg PO BIDCM [facility] Last Admin: 09/17/20 17:11 Dose: 500 mg Documented by: Escitalopram Oxalate (Escitalopram Oxalate 20 Mg Tablet) 20 mg PO DAILY [facility] Famotidine (Famotidine 20 Mg Tablet) 20 mg PO QHS [facility] Last Admin: 09/17/20 21:40 Dose: 20 mg Documented by: Folic Acid (Folic Acid 1 Mg Tablet) 1 mg PO DAILY@0800 [facility] Heparin Sodium (Beef Lung) (Heparin Pf Lock 10 Units/Ml 50 Units/5 Ml Syringe) 50 units IV UD PRN PRN Reason: R Port Heparin Flush Sodium Chloride () 1,000 mls @ 125 mls/hr IV .Q8H [facility] Last Admin: 09/18/20 01:20 Dose: 125 mls/hr Documented by: Piperacillin Sod/Tazobactam (Sod 3.375 gm/ Sodium Chloride) 50 mls @ 12.5 mls/hr IV Q8 [facility] Last Admin: 09/18/20 06:31 Dose: 12.5 mls/hr Documented by: Lorazepam (Lorazepam 0.5 Mg Tablet) 0.5 mg PO TID [facility] Last Admin: 09/18/20 06:34 Dose: 0.5 mg Documented by: Methylprednisolone (Methylprednisolone 40 Mg/Ml Vial) 40 mg IV Q8 [facility] Last Admin: 09/18/20 06:32 Dose: 40 mg Documented by: Ondansetron HCl (Ondansetron 4 Mg/2 Ml Vial) 4 mg IV Q8H PRN PRN PRN Reason: NAUSEA/VOMITING Pantoprazole Sodium (Pantoprazole Sodium 40 Mg Tablet) 40 mg PO BID [facility] Last Admin: 09/17/20 21:40 Dose: 40 mg Documented by: Pravastatin Sodium (Pravastatin 20 Mg Tablet) 20 mg PO DAILY@2200 [facility] Last Admin: 09/17/20 21:40 Dose: 20 mg Documented by: Prochlorperazine Maleate (Prochlorperazine 5 Mg Tablet) 10 mg PO Q6H PRN PRN PRN Reason: NAUSEA/VOMITING Last Admin: 09/17/20 17:11 Dose: 10 mg Documented by: Psyllium Hydrophilic Mucilloid (Psyllium 1 Packet) 1 packet PO DAILY PRN PRN PRN Reason: Constipation Senna/Docusate Sodium (Senna/Docusate Sodium 1 Tablet) 2 tablet PO BID PRN PRN Reason: Constipation Sodium Chloride (0.9% Saline Lock 10 Ml Syringe) 10 - 40 ml IV UD PRN PRN Reason: R Port Saline Flush Sodium Chloride (0.9 % Nacl (Sterile) Posiflush 10 Ml) 10 - 40 ml IV UD PRN PRN Reason: Port access or dressing change Clinical Impression(s) from Imaging Studies Chest X-Ray 09/17/20 13:50 IMPRESSION: Findings suggestive of bibasilar infiltrates worse on the left side superimposed on chronic basilar scarring. Electronically Signed: Robert Petty MD at 14:23 EDT , Service support , Chest CTA 09/17/20 14:09 IMPRESSION: Consolidation in the left lower lobe superimposed on chronic scarring. Focal infiltrate in the right middle lobe as well as scarring in the lingular segment of the left upper lobe. Nodular density seen in the right lung as described. Follow-up is recommended following clearing. Electronically Signed: Robert Petty MD at 14:45 EDT , Service support , Assessment/Plan Active and Suspected Problems Pneumonia (Acute) Lung cancer (Acute) RECOMMENDATIONS: 1. Continue antibiotics, steroids, bronchodilators, but add mucolytic 2. Wean oxygen as tolerated 3. Okay to discontinue IV fluids if patient able to take p.o. from my perspective 4. Continue to hold antihypertensives for another 24 hours 5. Discontinue enteric panel if no bowel movement in 24 hours 6. Monitor for bleeding clinically. H&H daily 7. Okay to leave the intensive care unit from my perspective IMPRESSIONS: 1. Severe sepsis secondary to pneumonia in the setting of COPD/small cell lung cancer Patient does have areas of infiltrate on CT scan of the chest. Clinical suspicion for postobstructive pneumonia. We will add mucolytic. Continue with bronchodilators and antibiotics. Patient appears to have responded to therapy well. Continue to follow cultures. Patient likely okay to leave the intensive care unit. 2. Acute hypoxic respiratory insufficiency secondary to COPD exacerbation secondary to #1 Patient without supplemental oxygen requirements previously. CTA of the chest did not show any pulmonary emboli, but patient is at increased risk secondary to underlying malignancy. Continue with therapy as described above. Cannot exclude the need for supplemental oxygen on discharge. Patient will need a walking oximetry prior to discharge. Patient is already established with [facility]. 3. Acute kidney injury Resolved. Likely prerenal secondary to #1. Continue to monitor. Reinitiate lisinopril tomorrow. 4. Acute diarrhea/anemia Clinical suspicion for onset secondary to chemotherapy. However, patient is unable to provide information on the exact regimen she is currently taking. If patient does not have a bowel movement in 24 hours, likely okay to discontinue enteric panel from my perspective. 5. Anxiety/depression/obesity/poor historian Complicates care, management, recovery and prognosis. Okay to continue with baseline medications. Inpatient E&M: 23467 Init Hosp L3
[2020-09-18] MEDS: Escitalopram Oxalate 20 MG Tablet PO (08:46)
[2020-09-18] MEDS: Folic Acid 1 MG Tablet PO (08:46)
[2020-09-18] MEDS: Pantoprazole Sodium 40 MG Tablet PO ×2 (08:46→21:49)
[2020-09-18] MEDS: Calcium Carbonate 500 MG Tablet PO ×2 (08:46→16:53)
--- NOTE | 2020-09-18 09:02 | PN_ITS ---
Subjective: Chief complaint: Follow-up after admission for bilateral healthcare associated pneumonia, severe sepsis, acute hypoxic respiratory insufficiency, anemia and COPD exacerbation. Patient seen and examined. No acute events overnight. This morning, she is feeling better, shortness of breath improved. Her blood pressure stabilized. No other complaints. She is afebrile, slightly tachycardic, blood pressure is borderline, pulse ox is 95% on 3 L. - Physical Exam Vitals/I&O's: Vital Signs Temp Pulse Resp BP Pulse Ox 97.8 F 100 21 H 107/65 95 09/18/20 04:00 09/18/20 06:00 09/18/20 06:00 09/18/20 06:00 09/18/20 06:00 Oxygen Flow Rate (L/min) 3 Oxygen Delivery Method Nasal Cannula Weight: 206 lb 2.115 oz Body Mass Index (BMI) 34.0 Intake and Output for Last 24 Hours 09/16/20 09/17/20 09/18/20 23:59 23:59 23:59 Intake Total 3024.4 / 3024.4 / Output Total 225 / 625 850 / 850 Balance 2799.4 / 2399.4 1133.33 / 1133.33 General: Alert, Oriented x3, Cooperative, - - Minimally short of breath. HEENT: Atraumatic, PERRLA, EOMI, Normocephalic Oral: Moist Mucosa, No Gingival or Mucosal Lesions/ Ulcerations Neck: Supple, No JVD, Negative Carotid Bruits, Trachea Midline, Thyroid Normal Size and Texture Lungs: No wheeze, No rales, Diminished, Rhonchi, - - Decreased breath sounds bilateral, scattered rhonchi. Cardiovascular: Regular rate, Regular Rhythm, Normal S1, Normal S2, PMI Normal, Tachycardic Abdomen: Bowel Sounds Present, Soft, Non Tender, Non-Distended, No Hepato- splenomegaly, Obese Extremities: No clubbing, No cyanosis, Edema - Trace edema. Skin: No rashes, No breakdown Lymphatic: No Cervical, Supraclavicular, or Inguinal Adenopathy Neurological: Cranial nerves II-XII grossly intact, Motor Exam 5/5 strength throughout Psych/Mental Status: Normal Affect, Appropriate, Alert and oriented to time, place, person, mood and affect Microbiology Past 72 Hours 09/17/20 18:00 Urine, Clean Catch Legionella Antigen - Final 09/17/20 18:00 Urine, Clean Catch Streptococcus pneumoniae Antigen (M - Final 09/17/20 13:15 Mucosa - Nose SARS-CoV-2 Antigen (Rapid) - Final Laboratory Results 09/17/20 13:28: WBC 17.9 H, RBC 2.45 L, Hgb 8.8 L, Hct 26.8 L, MCV 109.4 H, MCH 35.9 H, MCHC 32.8, RDW Std Deviation 87.4 H, RDW Coeff of Amanuel 21.9 H, Plt Count 293, MPV 9.3, Immature Gran % (Auto) 0.900, Neut % (Auto) 87.8 H, Lymph % (Auto) 4.5 L, [place] % (Auto) 6.6, Eos % (Auto) 0.0, Baso % (Auto) 0.2, Absolute Neuts (auto) 15.7 H, Absolute Lymphs (auto) 0.80 L, Nucleated RBC % 0, Differential Comment SCANNED, RBC Morphology N CHROM, Anisocytosis 2+, Macrocytosis 1+, Stomatocytes 1+ 09/17/20 13:28: PT 14.2, INR 1.1, APTT 30.0 09/17/20 13:28: Sodium 134 L, Potassium 4.9, Chloride 101, Carbon Dioxide 27.0, Anion Gap 6, BUN 17, Creatinine 1.13 H, Estim Creat Clear Calc 43.47, Est GFR (MDRD) Af Amer 62, Est GFR (MDRD) Non-Af 51 L, BUN/Creatinine Ratio 15.0, Glucose 128 H, Calcium 8.7, Total Bilirubin 0.30, AST 22, ALT 24, Alkaline Phosphatase 57, Total Protein 6.7, Albumin 2.9 L, Globulin 3.8, Albumin/Globulin Ratio 0.8 L 09/17/20 13:28: Lactic Acid 1.4 09/17/20 13:28: B-Natriuretic Peptide 68.5 09/17/20 17:25: COVID-19 (THALIA) Not Detected 09/17/20 18:00: Urine Color Yellow, Urine Clarity Clear, Urine pH 5.0, Ur Specific [place] 1.010, Urine Protein Negative, Urine Glucose (UA) Normal, Urine Ketones Negative, Urine Occult Blood Negative, Urine Nitrite Negative, Urine Bilirubin Negative, Urine Urobilinogen Normal, Ur Leukocyte Esterase Negative, Urine RBC 0 SEEN, Urine WBC 0 SEEN, Ur Squamous Epith Cells 0 SEEN, Urine Bacteria 0 SEEN, Urine Mucus 0 SEEN 09/17/20 23:00: WBC 14.5 H, RBC 2.09 L, Hgb 7.4 L, Hct 23.5 L, MCV 112.4 H, MCH 35.4 H, MCHC 31.5 L, RDW Std Deviation 91.6 H, RDW Coeff of Amanuel 22.2 H, Plt Count 250, MPV 9.3, Immature Gran % (Auto) 1.000 H, Neut % (Auto) 89.6 H, Lymph % (Auto) 4.4 L, [place] % (Auto) 4.9, Eos % (Auto) 0.0, Baso % (Auto) 0.1, Absolute Neuts (auto) 13.0 H, Absolute Lymphs (auto) 0.64 L, Nucleated RBC % 0, Differential Comment SCANNED, Anisocytosis 2+, Macrocytosis 2+, Tear Drop Cells RARE 09/18/20 04:15: WBC 14.2 H, RBC 2.16 L, Hgb 7.6 L, Hct 24.6 L, MCV 113.9 H, MCH 35.2 H, MCHC 30.9 L, RDW Std Deviation 90.9 H, RDW Coeff of Amanuel 22.0 H, Plt Count 242, MPV 9.4, Immature Gran % (Auto) 0.800, Neut % (Auto) 95.5 H, Lymph % (Auto) 2.0 L, [place] % (Auto) 1.6, Eos % (Auto) 0.0, Baso % (Auto) 0.1, Absolute Neuts (auto) 13.5 H, Absolute Lymphs (auto) 0.28 L, Nucleated RBC % 0, Differential Comment SCANNED, Polychromasia RARE, Anisocytosis 2+, Microcytosis RARE, Macrocytosis 2+ 09/18/20 04:15: Sodium 138, Potassium 4.7, Chloride 108 H, Carbon Dioxide 26.0, Anion Gap 4 L, BUN 15, Creatinine 0.86, Estim Creat Clear Calc 57.12, Est GFR (MDRD) Af Amer 85, Est GFR (MDRD) Non-Af 70, BUN/Creatinine Ratio 17.4, Glucose 147 H, Calcium 7.8 L, Total Bilirubin 0.20, AST 19, ALT 18, Alkaline Phosphatase 50, Total Protein 5.9 L, Albumin 2.3 L, Globulin 3.6, Albumin/Globulin Ratio 0.6 L Clinical Impression(s) from Imaging Studies Chest X-Ray 09/17/20 13:50 IMPRESSION: Findings suggestive of bibasilar infiltrates worse on the left side superimposed on chronic basilar scarring. Electronically Signed: Robert Petty MD at 14:23 EDT , Service support , Chest CTA 09/17/20 14:09 IMPRESSION: Consolidation in the left lower lobe superimposed on chronic scarring. Focal infiltrate in the right middle lobe as well as scarring in the lingular segment of the left upper lobe. Nodular density seen in the right lung as described. Follow-up is recommended following clearing. Electronically Signed: Robert Petty MD at 14:45 EDT , Service support , Current Medications Acetaminophen (Acetaminophen 325 Mg Tablet) 650 mg PO Q6H PRN PRN PRN Reason: Pain Score 1-10/Temp > 100.7 F Al Hydroxide/Mg Hydroxide (Mag Hydrox/Al Hydrox/Simeth 30 Ml Udc) 30 ml PO Q6H PRN PRN PRN Reason: Gastric Burning Albuterol Sulfate (Albuterol 2.5 Mg/3 Ml Vial.Neb.) 2.5 mg INHALATION Q4H PRN PRN Reason: Wheezing Last Admin: 09/17/20 18:51 Dose: 2.5 mg Documented by: Calcium Carbonate (Calcium Carbonate 500 Mg Tablet) 500 mg PO BIDCM [facility] Last Admin: 09/18/20 08:46 Dose: 500 mg Documented by: Escitalopram Oxalate (Escitalopram Oxalate 20 Mg Tablet) 20 mg PO DAILY [facility] Last Admin: 09/18/20 08:46 Dose: 20 mg Documented by: Famotidine (Famotidine 20 Mg Tablet) 20 mg PO QHS [facility] Last Admin: 09/17/20 21:40 Dose: 20 mg Documented by: Folic Acid (Folic Acid 1 Mg Tablet) 1 mg PO DAILY@0800 [facility] Last Admin: 09/18/20 08:46 Dose: 1 mg Documented by: Heparin Sodium (Beef Lung) (Heparin Pf Lock 10 Units/Ml 50 Units/5 Ml Syringe) 50 units IV UD PRN PRN Reason: R Port Heparin Flush Sodium Chloride () 1,000 mls @ 125 mls/hr IV .Q8H [facility] Last Admin: 09/18/20 08:48 Dose: 125 mls/hr Documented by: Piperacillin Sod/Tazobactam (Sod 3.375 gm/ Sodium Chloride) 50 mls @ 12.5 mls/hr IV Q8 [facility] Last Admin: 09/18/20 06:31 Dose: 12.5 mls/hr Documented by: Lorazepam (Lorazepam 0.5 Mg Tablet) 0.5 mg PO TID [facility] Last Admin: 09/18/20 06:34 Dose: 0.5 mg Documented by: Methylprednisolone (Methylprednisolone 40 Mg/Ml Vial) 40 mg IV Q8 [facility] Last Admin: 09/18/20 06:32 Dose: 40 mg Documented by: Ondansetron HCl (Ondansetron 4 Mg/2 Ml Vial) 4 mg IV Q8H PRN PRN PRN Reason: NAUSEA/VOMITING Pantoprazole Sodium (Pantoprazole Sodium 40 Mg Tablet) 40 mg PO BID [facility] Last Admin: 09/18/20 08:46 Dose: 40 mg Documented by: Pravastatin Sodium (Pravastatin 20 Mg Tablet) 20 mg PO DAILY@2200 [facility] Last Admin: 09/17/20 21:40 Dose: 20 mg Documented by: Prochlorperazine Maleate (Prochlorperazine 5 Mg Tablet) 10 mg PO Q6H PRN PRN PRN Reason: NAUSEA/VOMITING Last Admin: 09/17/20 17:11 Dose: 10 mg Documented by: Psyllium Hydrophilic Mucilloid (Psyllium 1 Packet) 1 packet PO DAILY PRN PRN PRN Reason: Constipation Senna/Docusate Sodium (Senna/Docusate Sodium 1 Tablet) 2 tablet PO BID PRN PRN Reason: Constipation Sodium Chloride (0.9% Saline Lock 10 Ml Syringe) 10 - 40 ml IV UD PRN PRN Reason: R Port Saline Flush Sodium Chloride (0.9 % Nacl (Sterile) Posiflush 10 Ml) 10 - 40 ml IV UD PRN PRN Reason: Port access or dressing change Medical Necessity - Tobacco Use Smoking Status: Former smoker Tobacco Use: Cigarettes Assessment/Plan All Active Problems Sepsis (Acute) Healthcare-associated pneumonia (Acute) This is a 65 years old female patient presented to the emergency room because of shortness of breath, found to have severe sepsis secondary to healthcare associated pneumonia, complicated by acute hypoxic respiratory insufficiency and found to have anemia. #1 acute bilateral healthcare associated pneumonia/severe sepsis: She is on IV Zosyn. Blood pressure improved with IV fluids, less tachycardic. She has been afebrile. Lactic acid was normal. She qualifies for healthcare associated pneumonia because she has been on chemotherapy for lung cancer, last dose was 3 weeks ago. She has been afebrile, WBC is trending down. COVID-19 antigen was negative. Blood and urine cultures are pending. Plan to continue same treatment, transfer to PCU, repeat CBC and BMP tomorrow morning. #2 acute hypoxic respite insufficiency: Secondary to #1 and #4. She is not on home oxygen. Currently, she is on 3 L. Today, symptoms improved. She is on IV steroids and bronchodilators. Plan to continue same treatment, treat underlying causes, wean off oxygen as tolerated. #3 anemia: Seems to be chronic secondary to chemotherapy. Patient denied any bleeding from body orifices. No active bleeding. Today's hemoglobin is 7.6 g/dL. Plan to monitor, transfuse tomorrow if hemoglobin remained below 8 g/dL. #4 COPD exacerbation: She is on IV Solu-Medrol and albuterol as needed. Plan to start DuoNeb every 6 hours, continue IV antibiotics, incentive spirometer. #5 small cell lung cancer: Currently on chemotherapy, follow-up with Dr. Maldonado as outpatient. #6 hypertension: She was hypotensive last night, blood pressure improved today. Norvasc and lisinopril on hold. #7 hyperlipidemia: Continue statins. #8 anxiety and depression: Continue Lexapro and Ativan. #9 DVT prophylaxis: SCDs. This note was generated with [employer] software. It may contain incorrect words, spelling, and punctuation that were not noted in checking the note before signing. Inpatient E&M: 88152 Subs Hosp L2
--- NOTE | 2020-09-18 09:15 | CASEMGMT ---
ZAY HERBERT assessment: Face to Face with pt for initial transition planning/care coordination assessment. ZAY HERBERT introduced self and role at [facility], pt voices understanding and consents to assessment. Pt is sitting up in chair with O2@3L in no distress. Pt is A/O x4 and answers all questions appropriately at this time. Care providers, pharmacy, and demographics verified/updated. Admitting dx: severe sepsis/pneumonia PCP:Michelet Specialists:Negrita/Erica, oncology, Leano, pulm Preferred Pharmacy: [facility] Insurance: [facility], Medicaid crossover Presciption Benefit: yes LW/HPOA: Pt states she does have a LW and DPOA. States her son is DPOA. She is aware that it is not on file at [facility] and that she may bring in to be scanned to chart. LNOK: Hi [place], son Living Arrangements: Pt lives in a first floor apt with her son. There are 3 steps to enter with a handrail. Pt reports being I in ADL's. No concerns at home. Transportation: Pt son drives her to appts. No concerns regarding transportation. DME/HHC/SNF: Pt states she has a shower chair at home. She denies previously having HHC or being in SNF. Pt is active with Palliative Care. Pt is retired and states no concerns with going home at time of dc. Pt states no further concerns/needs. CM to follow therapy and O2 needs. Advised pt to ask CM if any further question/concerns/needs arise, voices understanding. Pt goal: Home Plan: Home with family support
[2020-09-18] MEDS: Albuterol 2.5 MG/3 ML VIAL.NEB. INHALATION (11:03)
--- NOTE | 2020-09-18 11:54 | CASEMGMT ---
Pt informed RNCM she does have Advance directives and is aware they are not on file and requested they be brought in when able. BEBO Bermudez
[2020-09-18] MEDS: Acetaminophen 325 MG Tablet 650 MG PO (13:31)
[2020-09-18] MEDS: Ipratropium/Albuterol Sulfate 3 ML AMPUL.NEB INHALATION (15:51)
[2020-09-18] MEDS: Pravastatin 20 MG Tablet PO (21:48)
[2020-09-18] MEDS: Famotidine 20 MG Tablet PO (21:48)
[2020-09-19] VITALS (19 sets, daily range): BP systolic 107–148; BP diastolic 57–87; PULSE 95–121; RESP 18–24; TEMP 36.6–37.2; O2SAT 89–100
[2020-09-19] MEDS: Acetaminophen 325 MG Tablet 650 MG PO (00:16)
[2020-09-19] MEDS: Ipratropium/Albuterol Sulfate 3 ML AMPUL.NEB INHALATION ×4 (00:39→19:17)
[2020-09-19 04:58] LABS: Absolute Lymphocyte Count 0.35 X10^3/uL (0.83-4.51); Absolute Neutrophil Count 12.3 X10^3/uL (2.0-7.7); Basophil# 0.01 X10^3/uL; Basophil% 0.1 % (0-1); Hematocrit 23.8 % (37-47); Hemoglobin 7.6 g/dL (12.0-15.0); Lymphocyte # 0.35 X10^3/ul (4.0); Lymphocyte % 2.6 % (19-41); Mean Corp Hgb Conc 31.9 g/dL (32-36); Mean Corpuscular Hgb 35.7 pg (27.0-32.0); Mean Corpuscular Volume 111.7 fL (81-99); Mean Platelet Vol. 9.7 fl (6.2-12.0); Monocyte# 0.41 X10^3/uL; Monocyte% 3.1 % (0-10); NRBC Flagged by Analyzer 0 % (0-5); Neutrophil # 12.33 X10^3/uL (2.7-7.7); Neutrophil % 92.7 % (47-70); POSITIVE DIFFERENTIAL YES; POSITIVE MORPHOLOGY YES; Platelet Count 265 K/mm3 (150-450); RBC Distribution Width CV 21.6 % (11.6-14.6); RBC Distribution Width SD 88.4 fl (35.1-43.9); Red Blood Count 2.13 M/mm3 (4.2-5.4); White Blood Count 13.3 K/mm3 (4.4-11.0)
[2020-09-19 05:15] LABS: Anion Gap 7 (5-15); BUN 20 mg/dL (7-18); Calcium,Total 8.7 mg/dL (8.5-10.1); Chloride 108 mmol/L (98-107); Creatinine, Serum 1.11 mg/dL (0.55-1.02); EST Glomerular Filtration Rate 52 mL/min (>60); Est Glom Filt Rate - Afr Amer 63 mL/min (>60); Estimated Creatinine Clearance 44.25 ml/min; Glucose 142 mg/dL (74-106); Potassium 4.3 mmol/L (3.5-5.1); Sodium Level 139 mmol/L (136-145)
[2020-09-19 05:23] LABS: Differential Indicated SCAN CRITERIA MET
[2020-09-19 05:32] LABS: Anisocytosis 2+; Differential Comment SCANNED; Macrocytosis 2+; Polychromasia RARE
[2020-09-19] MEDS: LORazepam 0.5 MG Tablet PO ×3 (05:54→21:17)
--- NOTE | 2020-09-19 08:34 | PCM.PROGNOTE ---
Subjective: Chief complaint: Follow-up after admission for bilateral healthcare associated pneumonia, severe sepsis, acute hypoxic respiratory insufficiency, acute on chronic anemia and COPD exacerbation. Patient seen and examined. No acute events overnight. Although she mentioned that she is feeling better and her breathing is better, she is requiring up to 5 L of oxygen. Reported minimal cough with minimal sputum. She has been afebrile, blood pressure stable, pulse ox is 90% on 5 L. - Physical Exam Vitals/I&O's: Vital Signs Temp Pulse Resp BP Pulse Ox 98.9 F 121 H 24 H 148/73 H 90 09/19/20 05:45 09/19/20 07:00 09/19/20 07:00 09/19/20 05:45 09/19/20 07:00 Oxygen Flow Rate (L/min) 5 Oxygen Delivery Method Nasal Cannula Weight: 206 lb 12.697 oz Body Mass Index (BMI) 34.0 Intake and Output for Last 24 Hours 09/17/20 09/18/20 09/19/20 23:59 23:59 23:59 Intake Total 3024.4 / 3024.4 2642.50 / 2642.50 290 / 290 Output Total 225 / 625 1050 / 1050 Balance 2799.4 / 2399.4 1592.50 / 1592.50 290 / 290 General: Alert, Oriented x3, Cooperative, - - Minimally short of breath. HEENT: Atraumatic, PERRLA, EOMI, Normocephalic Oral: Moist Mucosa, No Gingival or Mucosal Lesions/ Ulcerations Neck: Supple, No JVD, Negative Carotid Bruits, Trachea Midline, Thyroid Normal Size and Texture Lungs: No rhonchi, No rales, Diminished, Wheezes, - - Decreased breath sounds bilateral, occasional wheezes. Cardiovascular: Regular rate, Regular Rhythm, Normal S1, Normal S2, PMI Normal Abdomen: Bowel Sounds Present, Soft, Non Tender, Non-Distended, No Hepato-splenomegaly, Obese Extremities: No clubbing, No cyanosis, Edema Skin: No rashes, No breakdown Lymphatic: No Cervical, Supraclavicular, or Inguinal Adenopathy Neurological: Cranial nerves II-XII grossly intact, Neuro grossly intact Psych/Mental Status: Normal Affect, Appropriate Microbiology Past 72 Hours 09/17/20 18:00 Urine, Clean Catch Legionella Antigen - Final 09/17/20 18:00 Urine, Clean Catch Streptococcus pneumoniae Antigen (M - Final 09/17/20 13:15 Mucosa - Nose SARS-CoV-2 Antigen (Rapid) - Final Laboratory Results 09/19/20 04:45: WBC 13.3 H, RBC 2.13 L, Hgb 7.6 L, Hct 23.8 L, MCV 111.7 H, MCH 35.7 H, MCHC 31.9 L, RDW Std Deviation 88.4 H, RDW Coeff of Amanuel 21.6 H, Plt Count 265, MPV 9.7, Immature Gran % (Auto) 1.500 H, Neut % (Auto) 92.7 H, Lymph % (Auto) 2.6 L, [place] % (Auto) 3.1, Eos % (Auto) 0.0, Baso % (Auto) 0.1, Absolute Neuts (auto) 12.3 H, Absolute Lymphs (auto) 0.35 L, Nucleated RBC % 0, Differential Comment SCANNED, Polychromasia RARE, Anisocytosis 2+, Macrocytosis 2+ 09/19/20 04:45: Sodium 139, Potassium 4.3, Chloride 108 H, Carbon Dioxide 24.0, Anion Gap 7, BUN 20 H, Creatinine 1.11 H, Estim Creat Clear Calc 44.25, Est GFR (MDRD) Af Amer 63, Est GFR (MDRD) Non-Af 52 L, BUN/Creatinine Ratio 18.0, Glucose 142 H, Calcium 8.7 Current Medications Acetaminophen (Acetaminophen 325 Mg Tablet) 650 mg PO Q6H PRN PRN PRN Reason: Pain Score 1-10/Temp > 100.7 F Last Admin: 09/19/20 00:16 Dose: 650 mg Documented by: Al Hydroxide/Mg Hydroxide (Mag Hydrox/Al Hydrox/Simeth 30 Ml Udc) 30 ml PO Q6H PRN PRN PRN Reason: Gastric Burning Albuterol Sulfate (Albuterol 2.5 Mg/3 Ml Vial.Neb.) 2.5 mg INHALATION Q4H PRN PRN Reason: Wheezing Last Admin: 09/18/20 11:03 Dose: 2.5 mg Documented by: Albuterol/Ipratropium (Ipratropium/Albuterol Sulfate 3 Ml Ampul.Neb) 3 ml INHALATION Q6H.RT MELANIE Last Admin: 09/19/20 07:00 Dose: 3 ml Documented by: Calcium Carbonate (Calcium Carbonate 500 Mg Tablet) 500 mg PO BIDCM [facility] Last Admin: 09/18/20 16:53 Dose: 500 mg Documented by: Escitalopram Oxalate (Escitalopram Oxalate 20 Mg Tablet) 20 mg PO DAILY [facility] Last Admin: 09/18/20 08:46 Dose: 20 mg Documented by: Famotidine (Famotidine 20 Mg Tablet) 20 mg PO QHS [facility] Last Admin: 09/18/20 21:48 Dose: 20 mg Documented by: Folic Acid (Folic Acid 1 Mg Tablet) 1 mg PO DAILY@0800 [facility] Last Admin: 09/18/20 08:46 Dose: 1 mg Documented by: Heparin Sodium (Beef Lung) (Heparin Pf Lock 10 Units/Ml 50 Units/5 Ml Syringe) 50 units IV UD PRN PRN Reason: R Port Heparin Flush Piperacillin Sod/Tazobactam (Sod 3.375 gm/ Sodium Chloride) 50 mls @ 12.5 mls/hr IV Q8 [facility] Last Admin: 09/19/20 05:54 Dose: 12.5 mls/hr Documented by: Lorazepam (Lorazepam 0.5 Mg Tablet) 0.5 mg PO TID [facility] Last Admin: 09/19/20 05:54 Dose: 0.5 mg Documented by: Methylprednisolone (Methylprednisolone 40 Mg/Ml Vial) 40 mg IV Q8 [facility] Last Admin: 09/19/20 05:54 Dose: 40 mg Documented by: Ondansetron HCl (Ondansetron 4 Mg/2 Ml Vial) 4 mg IV Q8H PRN PRN PRN Reason: NAUSEA/VOMITING Pantoprazole Sodium (Pantoprazole Sodium 40 Mg Tablet) 40 mg PO BID [facility] Last Admin: 09/18/20 21:49 Dose: 40 mg Documented by: Pravastatin Sodium (Pravastatin 20 Mg Tablet) 20 mg PO DAILY@2200 [facility] Last Admin: 09/18/20 21:48 Dose: 20 mg Documented by: Prochlorperazine Maleate (Prochlorperazine 5 Mg Tablet) 10 mg PO Q6H PRN PRN PRN Reason: NAUSEA/VOMITING Last Admin: 09/17/20 17:11 Dose: 10 mg Documented by: Psyllium Hydrophilic Mucilloid (Psyllium 1 Packet) 1 packet PO DAILY PRN PRN PRN Reason: Constipation Senna/Docusate Sodium (Senna/Docusate Sodium 1 Tablet) 2 tablet PO BID PRN PRN Reason: Constipation Sodium Chloride (0.9% Saline Lock 10 Ml Syringe) 10 - 40 ml IV UD PRN PRN Reason: R Port [place] Flush Sodium Chloride (0.9 % Nacl (Sterile) Posiflush 10 Ml) 10 - 40 ml IV UD PRN PRN Reason: Port access or dressing change Medical Necessity - Tobacco Use Smoking Status: Former smoker Tobacco Use: Cigarettes Assessment/Plan All Active Problems Sepsis (Acute) Healthcare-associated pneumonia (Acute) This is a 65 years old female patient presented to the emergency room because of shortness of breath, found to have severe sepsis secondary to healthcare associated pneumonia, complicated by acute hypoxic respiratory insufficiency and found to have anemia. #1 acute bilateral healthcare associated pneumonia/severe sepsis: Remained on IV Zosyn. She has been afebrile, blood pressure stabilized, heart rate has been around 100. She qualifies for healthcare associated pneumonia because she has been on chemotherapy for lung cancer, last dose was 3 weeks ago. COVID-19 antigen was negative. Pneumococcal and Legionella antigen were negative. Blood and urine cultures are pending. Plan to continue same treatment, repeat CBC tomorrow morning. #2 acute hypoxic respite insufficiency: Secondary to #1 and #4. She is not on home oxygen. This morning, she is on 5 L although she was on 3 L overnight. Patient actually mentioned that her breathing is getting better. She is on IV antibiotics, IV steroids and bronchodilators. Plan to continue same treatment, encourage incentive spirometer, wean off oxygen as tolerated. #3 Acute on chronic anemia:secondary to chemotherapy. Patient denied any bleeding from body orifices. No active bleeding. Today's hemoglobin remains at 7.6 g/dL, same as yesterday. Plan to transfuse 1 unit of packed RBCs, repeat H&H 1 hour after blood transfusion, repeat CBC tomorrow morning. #4 COPD exacerbation: She is on IV Solu-Medrol and albuterol as needed. Continue DuoNeb every 6 hours, continue IV antibiotics, incentive spirometer. #5 small cell lung cancer: Currently on chemotherapy, follow-up with Dr. Maldonado as outpatient. #6 hypertension: Blood pressure stabilized and actually start to go up. Plan to resume Norvasc, keep holding lisinopril. #7 hyperlipidemia: Continue statins. #8 anxiety and depression: Continue Lexapro and Ativan. #9 DVT prophylaxis: SCDs. This note was generated with [employer] dictation software. It may contain incorrect words, spelling, and punctuation that were not noted in checking the note before signing. Inpatient E&M: 70480 Subs Hosp L2
[2020-09-19] MEDS: Folic Acid 1 MG Tablet PO (08:49)
[2020-09-19] MEDS: Pantoprazole Sodium 40 MG Tablet PO ×2 (08:49→21:17)
[2020-09-19] MEDS: Escitalopram Oxalate 20 MG Tablet PO (08:49)
[2020-09-19] MEDS: Calcium Carbonate 500 MG Tablet PO ×2 (08:49→16:41)
--- NOTE | 2020-09-19 10:10 | PN_ITS ---
Subjective: Patient did well overnight. No acute issues were reported. Patient reports subjective improvement compared to previous, but not back to baseline. Still with cough with some production. General: Alert, Oriented x3, Cooperative, - - Mild conversational dyspnea. Obese. HEENT: Atraumatic, PERRLA, EOMI, Normocephalic, - - No scleral icterus or injection noted Oral: Moist Mucosa, No Gingival or Mucosal Lesions/ Ulcerations Neck: Supple, No JVD, No Nodes, Trachea Midline Lungs: No rales, Diminished, Rhonchi - Scattered Cardiovascular: Regular rate, Regular Rhythm, Normal S1, Normal S2, No murmurs, No rub noted, No Gallop Abdomen: Bowel Sounds Present, Soft, Non Tender, Non-Distended Extremities: No clubbing, No cyanosis, Edema Skin: - - No change from previous Musculoskeletal: No Tenderness to Palpation of Joints or Extremities Lymphatic: No Cervical, Supraclavicular, or Inguinal Adenopathy Neurological: Cranial nerves II-XII grossly intact, Neuro grossly intact, Motor Exam 5/5 strength throughout Psych/Mental Status: Alert and oriented to time, place, person, mood and affect Vital Signs Temp Pulse Resp BP Pulse Ox 37.2 C 121 H 24 H 148/73 H 90 09/19/20 05:45 09/19/20 07:00 09/19/20 07:00 09/19/20 05:45 09/19/20 07:00 Oxygen Flow Rate (L/min) 5 Oxygen Delivery Method Nasal Cannula Weight: 93.8 kg Body Mass Index (BMI) 34.0 Intake and Output for Last 24 Hours 09/17/20 09/18/20 09/19/20 23:59 23:59 23:59 Intake Total 3024.4 / 3024.4 2642.50 / 2642.50 290 / 290 Output Total 225 / 625 1050 / 1050 Balance 2799.4 / 2399.4 1592.50 / 1592.50 290 / 290 Labs (Last 48 Hours) 09/17/20 09/17/20 09/17/20 13:28 13:28 13:28 WBC 17.9 H RBC 2.45 L Hgb 8.8 L Hct 26.8 L MCV 109.4 H MCH 35.9 H MCHC 32.8 RDW Std Deviation 87.4 H RDW Coeff of Amanuel 21.9 H Plt Count 293 MPV 9.3 Immature Gran % (Auto) 0.900 Neut % (Auto) 87.8 H Lymph % (Auto) 4.5 L [place] % (Auto) 6.6 Eos % (Auto) 0.0 Baso % (Auto) 0.2 Absolute Neuts (auto) 15.7 H Absolute Lymphs (auto) 0.80 L Nucleated RBC % 0 Differential Comment SCANNED RBC Morphology N CHROM Polychromasia Anisocytosis 2+ Microcytosis Macrocytosis 1+ Tear Drop Cells Stomatocytes 1+ PT 14.2 INR 1.1 APTT 30.0 Sodium 134 L Potassium 4.9 Chloride 101 Carbon Dioxide 27.0 Anion Gap 6 BUN 17 Creatinine 1.13 H Estim Creat Clear Calc 43.47 Est GFR (MDRD) Af Amer 62 Est GFR (MDRD) Non-Af 51 L BUN/Creatinine Ratio 15.0 Glucose 128 H Lactic Acid Calcium 8.7 Total Bilirubin 0.30 AST 22 ALT 24 Alkaline Phosphatase 57 B-Natriuretic Peptide Total Protein 6.7 Albumin 2.9 L Globulin 3.8 Albumin/Globulin Ratio 0.8 L Urine Color Urine Clarity Urine pH Ur Specific [place] Urine Protein Urine Glucose (UA) Urine Ketones Urine Occult Blood Urine Nitrite Urine Bilirubin Urine Urobilinogen Ur Leukocyte Esterase Urine RBC Urine WBC Ur Squamous Epith Cells Urine Bacteria Urine Mucus COVID-19 (THALIA) Blood Type Antibody Screen Crossmatch 09/17/20 09/17/20 09/17/20 13:28 13:28 17:25 WBC RBC Hgb Hct MCV MCH MCHC RDW Std Deviation RDW Coeff of Amanule Plt Count MPV Immature Gran % (Auto) Neut % (Auto) Lymph % (Auto) [place] % (Auto) Eos % (Auto) Baso % (Auto) Absolute Neuts (auto) Absolute Lymphs (auto) Nucleated RBC % Differential Comment RBC Morphology Polychromasia Anisocytosis Microcytosis Macrocytosis Tear Drop Cells Stomatocytes PT INR APTT Sodium Potassium Chloride Carbon Dioxide Anion Gap BUN Creatinine Estim Creat Clear Calc Est GFR (MDRD) Af Amer Est GFR (MDRD) Non-Af BUN/Creatinine Ratio Glucose Lactic Acid 1.4 Calcium Total Bilirubin AST ALT Alkaline Phosphatase B-Natriuretic Peptide 68.5 Total Protein Albumin Globulin Albumin/Globulin Ratio Urine Color Urine Clarity Urine pH Ur Specific [place] Urine Protein Urine Glucose (UA) Urine Ketones Urine Occult Blood Urine Nitrite Urine Bilirubin Urine Urobilinogen Ur Leukocyte Esterase Urine RBC Urine WBC Ur Squamous Epith Cells Urine Bacteria Urine Mucus COVID-19 (THALIA) Not Detected Blood Type Antibody Screen Crossmatch 09/17/20 09/17/20 09/18/20 18:00 23:00 04:15 WBC 14.5 H 14.2 H RBC 2.09 L 2.16 L Hgb 7.4 L 7.6 L Hct 23.5 L 24.6 L MCV 112.4 H 113.9 H MCH 35.4 H 35.2 H MCHC 31.5 L 30.9 L RDW Std Deviation 91.6 H 90.9 H RDW Coeff of Amanuel 22.2 H 22.0 H Plt Count 250 242 MPV 9.3 9.4 Immature Gran % (Auto) 1.000 H 0.800 Neut % (Auto) 89.6 H 95.5 H Lymph % (Auto) 4.4 L 2.0 L [place] % (Auto) 4.9 1.6 Eos % (Auto) 0.0 0.0 Baso % (Auto) 0.1 0.1 Absolute Neuts (auto) 13.0 H 13.5 H Absolute Lymphs (auto) 0.64 L 0.28 L Nucleated RBC % 0 0 Differential Comment SCANNED SCANNED RBC Morphology Polychromasia RARE Anisocytosis 2+ 2+ Microcytosis RARE Macrocytosis 2+ 2+ Tear Drop Cells RARE Stomatocytes PT INR APTT Sodium Potassium Chloride Carbon Dioxide Anion Gap BUN Creatinine Estim Creat Clear Calc Est GFR (MDRD) Af Amer Est GFR (MDRD) Non-Af BUN/Creatinine Ratio Glucose Lactic Acid Calcium Total Bilirubin AST ALT Alkaline Phosphatase B-Natriuretic Peptide Total Protein Albumin Globulin Albumin/Globulin Ratio Urine Color Yellow Urine Clarity Clear Urine pH 5.0 Ur Specific [place] 1.010 Urine Protein Negative Urine Glucose (UA) Normal Urine Ketones Negative Urine Occult Blood Negative Urine Nitrite Negative Urine Bilirubin Negative Urine Urobilinogen Normal Ur Leukocyte Esterase Negative Urine RBC 0 SEEN Urine WBC 0 SEEN Ur Squamous Epith Cells 0 SEEN Urine Bacteria 0 SEEN Urine Mucus 0 SEEN COVID-19 (THALIA) Blood Type Antibody Screen Crossmatch 09/18/20 09/19/20 09/19/20 04:15 04:45 04:45 WBC 13.3 H RBC 2.13 L Hgb 7.6 L Hct 23.8 L MCV 111.7 H MCH 35.7 H MCHC 31.9 L RDW Std Deviation 88.4 H RDW Coeff of Amanuel 21.6 H Plt Count 265 MPV 9.7 Immature Gran % (Auto) 1.500 H Neut % (Auto) 92.7 H Lymph % (Auto) 2.6 L [place] % (Auto) 3.1 Eos % (Auto) 0.0 Baso % (Auto) 0.1 Absolute Neuts (auto) 12.3 H Absolute Lymphs (auto) 0.35 L Nucleated RBC % 0 Differential Comment SCANNED RBC Morphology Polychromasia RARE Anisocytosis 2+ Microcytosis Macrocytosis 2+ Tear Drop Cells Stomatocytes PT INR APTT Sodium 138 139 Potassium 4.7 4.3 Chloride 108 H 108 H Carbon Dioxide 26.0 24.0 Anion Gap 4 L 7 BUN 15 20 H Creatinine 0.86 1.11 H Estim Creat Clear Calc 57.12 44.25 Est GFR (MDRD) Af Amer 85 63 Est GFR (MDRD) Non-Af 70 52 L BUN/Creatinine Ratio 17.4 18.0 Glucose 147 H 142 H Lactic Acid Calcium 7.8 L 8.7 Total Bilirubin 0.20 AST 19 ALT 18 Alkaline Phosphatase 50 B-Natriuretic Peptide Total Protein 5.9 L Albumin 2.3 L Globulin 3.6 Albumin/Globulin Ratio 0.6 L Urine Color Urine Clarity Urine pH Ur Specific [place] Urine Protein Urine Glucose (UA) Urine Ketones Urine Occult Blood Urine Nitrite Urine Bilirubin Urine Urobilinogen Ur Leukocyte Esterase Urine RBC Urine WBC Ur Squamous Epith Cells Urine Bacteria Urine Mucus COVID-19 (THALIA) Blood Type Antibody Screen Crossmatch 09/19/20 09:00 WBC RBC Hgb Hct MCV MCH MCHC RDW Std Deviation RDW Coeff of Amanuel Plt Count MPV Immature Gran % (Auto) Neut % (Auto) Lymph % (Auto) [place] % (Auto) Eos % (Auto) Baso % (Auto) Absolute Neuts (auto) Absolute Lymphs (auto) Nucleated RBC % Differential Comment RBC Morphology Polychromasia Anisocytosis Microcytosis Macrocytosis Tear Drop Cells Stomatocytes PT INR APTT Sodium Potassium Chloride Carbon Dioxide Anion Gap BUN Creatinine Estim Creat Clear Calc Est GFR (MDRD) Af Amer Est GFR (MDRD) Non-Af BUN/Creatinine Ratio Glucose Lactic Acid Calcium Total Bilirubin AST ALT Alkaline Phosphatase B-Natriuretic Peptide Total Protein Albumin Globulin Albumin/Globulin Ratio Urine Color Urine Clarity Urine pH Ur Specific [place] Urine Protein Urine Glucose (UA) Urine Ketones Urine Occult Blood Urine Nitrite Urine Bilirubin Urine Urobilinogen Ur Leukocyte Esterase Urine RBC Urine WBC Ur Squamous Epith Cells Urine Bacteria Urine Mucus COVID-19 (THALIA) Blood Type Pending Antibody Screen Pending Crossmatch See Detail Microbiology 09/17/20 13:00 Blood Culture (Wb) - Left Forearm Blood Culture - Preliminary No growth in 48 hours. 09/17/20 13:28 Blood Culture (Wb) - Chest Blood Culture - Preliminary No growth in 48 hours. 09/17/20 18:00 Urine, Clean Catch Urine Culture - Final Mixed Gram Positive Organisms 09/17/20 18:00 Urine, Clean Catch Legionella Antigen - Final 09/17/20 18:00 Urine, Clean Catch Streptococcus pneumoniae Antigen (M - Final 09/17/20 13:15 Mucosa - Nose SARS-CoV-2 Antigen (Rapid) - Final Medical Necessity - Tobacco Use Smoking Status: Former smoker Tobacco Use: Cigarettes Assessment/Plan All Active Problems Sepsis (Acute) Healthcare-associated pneumonia (Acute) RECOMMENDATIONS: 1. Continue antibiotics, steroids, bronchodilators, and mucolytic 2. Wean oxygen as tolerated 3. Okay to reinitiate baseline antihypertensives in a stepwise fashion 4. Monitor for bleeding clinically. Check H&H daily 5. Increase activity as tolerated IMPRESSIONS: 1. Severe sepsis secondary to pneumonia in the setting of COPD/small cell lung cancer Patient does have areas of infiltrate on CT scan of the chest. Clinical suspicion for postobstructive pneumonia. We will add mucolytic. Continue with bronchodilators and antibiotics. Patient appears to have responded to therapy well. Continue to follow cultures. 2. Acute hypoxic respiratory insufficiency secondary to COPD exacerbation secondary to #1 Patient without supplemental oxygen requirements previously. CTA of the chest did not show any pulmonary emboli, but patient is at increased risk secondary to underlying malignancy. Continue with therapy as described above. Cannot exclude the need for supplemental oxygen on discharge. Patient will need a walking oximetry prior to discharge. Patient is already established with [facility]. 3. Acute kidney injury Resolved. Likely prerenal secondary to #1. Continue to monitor. Likely okay to reinitiate lisinopril in a stepwise fashion 4. Acute diarrhea/anemia Clinical suspicion for onset secondary to chemotherapy. Continue to monitor blood counts on a daily basis. No indication for transfusion at this time. 5. Anxiety/depression/obesity/poor historian Complicates care, management, recovery and prognosis. Okay to continue with baseline medications. Inpatient E&M: 12438 [facility] Hosp L3
[2020-09-19] MEDS: guaiFENesin 1,200 MG Tablet 1200 MG PO ×2 (11:27→21:17)
[2020-09-19] MEDS: amLODIPine 5 MG Tablet PO (11:27)
[2020-09-19] MEDS: Gabapentin 300 MG Capsule PO ×2 (11:27→16:41)
--- NOTE | 2020-09-19 13:39 | CASEMGMT ---
Therapy is recommending WW at discharge and pt is agreeable at this time. Pt may also need home oxygen at discharge. After provided with verbal list of local in-network DME companies, pt states no preference at this time. Green sheet left on chart with [employer] script for WW and possible home oxygen. Pt voices no further questions/concerns/needs. Cyndy COLLAZO CM
[2020-09-19] MEDS: 0.9% Saline Lock 10 ML Syringe IV (14:08)
[2020-09-19 16:47] LABS: Hematocrit 28.4 % (37-47); Hemoglobin 9.1 g/dL (12.0-15.0)
[2020-09-19] MEDS: Famotidine 20 MG Tablet PO (21:17)
[2020-09-19] MEDS: Pravastatin 20 MG Tablet PO (21:17)
[2020-09-19] MEDS: Albuterol 2.5 MG/3 ML VIAL.NEB. INHALATION (22:15)
[2020-09-20] VITALS (17 sets, daily range): BP systolic 130–154; BP diastolic 60–91; PULSE 93–110; RESP 15–22; TEMP 36–37.1; O2SAT 83–97
[2020-09-20] MEDS: Ipratropium/Albuterol Sulfate 3 ML AMPUL.NEB INHALATION ×4 (01:34→18:47)
[2020-09-20] MEDS: Acetaminophen 325 MG Tablet 650 MG PO (02:56)
[2020-09-20] MEDS: 0.9% Saline Lock 10 ML Syringe IV ×2 (05:09→21:14)
[2020-09-20] MEDS: LORazepam 0.5 MG Tablet PO ×3 (05:09→21:13)
[2020-09-20 07:22] LABS: Absolute Lymphocyte Count 0.42 X10^3/uL (0.83-4.51); Absolute Neutrophil Count 10.3 X10^3/uL (2.0-7.7); Basophil# 0.03 X10^3/uL; Basophil% 0.3 % (0-1); Hematocrit 28.5 % (37-47); Hemoglobin 8.9 g/dL (12.0-15.0); Lymphocyte # 0.42 X10^3/ul (4.0); Lymphocyte % 3.6 % (19-41); Mean Corp Hgb Conc 31.2 g/dL (32-36); Mean Corpuscular Volume 105.6 fL (81-99); Mean Platelet Vol. 9.4 fl (6.2-12.0); Monocyte# 0.45 X10^3/uL; Monocyte% 3.9 % (0-10); NRBC Flagged by Analyzer 0.3 % (0-5); Neutrophil % 89.5 % (47-70); POSITIVE DIFFERENTIAL YES; POSITIVE MORPHOLOGY YES; Platelet Count 262 K/mm3 (150-450); RBC Distribution Width SD 92.9 fl (35.1-43.9); White Blood Count 11.5 K/mm3 (4.4-11.0)
[2020-09-20 07:25] LABS: Differential Indicated SCAN CRITERIA MET
[2020-09-20 07:52] LABS: Anion Gap 7 (5-15); BUN 21 mg/dL (7-18); BUN/Creat Ratio 19.1 RATIO (10-20); Calcium,Total 8.8 mg/dL (8.5-10.1); Chloride 107 mmol/L (98-107); EST Glomerular Filtration Rate 53 mL/min (>60); Est Glom Filt Rate - Afr Amer 64 mL/min (>60); Estimated Creatinine Clearance 44.66 ml/min; Glucose 124 mg/dL (74-106); Potassium 4.1 mmol/L (3.5-5.1); Sodium Level 140 mmol/L (136-145)
[2020-09-20 07:54] LABS: Anisocytosis 1+
--- NOTE | 2020-09-20 08:21 | PN_ITS ---
Subjective: Chief complaint: Follow-up after admission for bilateral healthcare associated pneumonia, severe sepsis, acute hypoxic respiratory insufficiency, acute on chronic anemia and COPD exacerbation. Patient seen and examined. No acute events overnight. Today, she is feeling better, still having some shortness of breath upon ambulation. Minimal cough, no sputum production. She remains on 3 L of oxygen, has been afebrile, pressure stable. - Physical Exam Vitals/I&O's: Vital Signs Temp Pulse Resp BP Pulse Ox 98.4 F 93 20 H 131/87 H 97 09/20/20 05:06 09/20/20 06:59 09/20/20 05:06 09/20/20 05:06 09/20/20 05:06 Oxygen Flow Rate (L/min) 3 Oxygen Delivery Method Nasal Cannula Weight: 208 lb 1.862 oz Body Mass Index (BMI) 34.0 Intake and Output for Last 24 Hours 09/18/20 09/19/20 09/20/20 23:59 23:59 23:59 Intake Total 2642.50 / 2642.50 2170 / 2170 110 / 110 Output Total 1050 / 1050 0 / 0 Balance 1592.50 / 1592.50 2170 / 2170 110 / 110 General: Alert, Oriented x3, Cooperative, No apparent distress HEENT: Atraumatic, PERRLA, EOMI, Normocephalic Oral: Moist Mucosa, No Gingival or Mucosal Lesions/ Ulcerations Neck: Supple, No JVD, Negative Carotid Bruits, Trachea Midline, Thyroid Normal Size and Texture Lungs: No rales, Diminished, Rhonchi, Wheezes, - - Decreased breath sounds bilateral, occasional wheezes, rhonchi. Cardiovascular: Regular rate, Regular Rhythm, Normal S1, Normal S2, PMI Normal Abdomen: Bowel Sounds Present, Soft, Non Tender, Non-Distended, No Hepato- splenomegaly, Obese Extremities: No clubbing, No cyanosis, Edema - Trace edema. Skin: No rashes, No breakdown Lymphatic: No Cervical, Supraclavicular, or Inguinal Adenopathy Neurological: Cranial nerves II-XII grossly intact, Neuro grossly intact Psych/Mental Status: Normal Affect, Appropriate, Alert and oriented to time, place, person, mood and affect Microbiology Past 72 Hours 09/17/20 13:00 Blood Culture (Wb) - Left Forearm Blood Culture - Preliminary No growth in 48 hours. 09/17/20 13:28 Blood Culture (Wb) - Chest Blood Culture - Preliminary No growth in 48 hours. 09/17/20 18:00 Urine, Clean Catch Urine Culture - Final Mixed Gram Positive Organisms 09/17/20 18:00 Urine, Clean Catch Legionella Antigen - Final 09/17/20 18:00 Urine, Clean Catch Streptococcus pneumoniae Antigen (M - Final 09/17/20 13:15 Mucosa - Nose SARS-CoV-2 Antigen (Rapid) - Final Laboratory Results 09/19/20 09:00: Blood Type A POSITIVE, Antibody Screen NEGATIVE, Crossmatch See Detail 09/19/20 16:35: Hgb 9.1 L, Hct 28.4 L 09/20/20 06:30: WBC 11.5 H, RBC 2.70 L, Hgb 8.9 L, Hct 28.5 L, MCV 105.6 H D, MCH 33.0 H, MCHC 31.2 L, RDW Std Deviation 92.9 H, RDW Coeff of Amanuel 24.0 H, Plt Count 262, MPV 9.4, Immature Gran % (Auto) 2.700 H, Neut % (Auto) 89.5 H, Lymph % (Auto) 3.6 L, [place] % (Auto) 3.9, Eos % (Auto) 0.0, Baso % (Auto) 0.3, Absolute Neuts (auto) 10.3 H, Absolute Lymphs (auto) 0.42 L, Nucleated RBC % 0.3, Anisocytosis 1+ 09/20/20 06:30: Sodium 140, Potassium 4.1, Chloride 107, Carbon Dioxide 26.0, Anion Gap 7, BUN 21 H, Creatinine 1.10 H, Estim Creat Clear Calc 44.66, Est GFR (MDRD) Af Amer 64, Est GFR (MDRD) Non-Af 53 L, BUN/Creatinine Ratio 19.1, Glucose 124 H, Calcium 8.8 Current Medications Acetaminophen (Acetaminophen 325 Mg Tablet) 650 mg PO Q6H PRN PRN PRN Reason: Pain Score 1-10/Temp > 100.7 F Last Admin: 09/20/20 02:56 Dose: 650 mg Documented by: Al Hydroxide/Mg Hydroxide (Mag Hydrox/Al Hydrox/Simeth 30 Ml Udc) 30 ml PO Q6H PRN PRN PRN Reason: Gastric Burning Albuterol Sulfate (Albuterol 2.5 Mg/3 Ml Vial.Neb.) 2.5 mg INHALATION Q4H PRN PRN Reason: Wheezing Last Admin: 09/19/20 22:15 Dose: 2.5 mg Documented by: Albuterol/Ipratropium (Ipratropium/Albuterol Sulfate 3 Ml Ampul.Neb) 3 ml INHALATION Q6H.RT [facility] Last Admin: 09/20/20 07:26 Dose: 3 ml Documented by: Amlodipine Besylate (Amlodipine 5 Mg Tablet) 5 mg PO DAILY [facility] Last Admin: 09/19/20 11:27 Dose: 5 mg Documented by: Calcium Carbonate (Calcium Carbonate 500 Mg Tablet) 500 mg PO BIDCM [facility] Last Admin: 09/19/20 16:41 Dose: 500 mg Documented by: Escitalopram Oxalate (Escitalopram Oxalate 20 Mg Tablet) 20 mg PO DAILY [facility] Last Admin: 09/19/20 08:49 Dose: 20 mg Documented by: Famotidine (Famotidine 20 Mg Tablet) 20 mg PO QHS [facility] Last Admin: 09/19/20 21:17 Dose: 20 mg Documented by: Folic Acid (Folic Acid 1 Mg Tablet) 1 mg PO DAILY@0800 [facility] Last Admin: 09/19/20 08:49 Dose: 1 mg Documented by: Gabapentin (Gabapentin 300 Mg Capsule) 300 mg PO TIDCM [facility] Last Admin: 09/19/20 16:41 Dose: 300 mg Documented by: Guaifenesin (Guaifenesin 1,200 Mg Tablet) 1,200 mg PO BID [facility] Last Admin: 09/19/20 21:17 Dose: 1,200 mg Documented by: Heparin Sodium (Beef Lung) (Heparin Pf Lock 10 Units/Ml 50 Units/5 Ml Syringe) 50 units IV UD PRN PRN Reason: R Port Heparin Flush Piperacillin Sod/Tazobactam (Sod 3.375 gm/ Sodium Chloride) 50 mls @ 12.5 mls/hr IV Q8 [facility] Last Admin: 09/20/20 05:07 Dose: 12.5 mls/hr Documented by: Lorazepam (Lorazepam 0.5 Mg Tablet) 0.5 mg PO TID [facility] Last Admin: 09/20/20 05:09 Dose: 0.5 mg Documented by: Methylprednisolone (Methylprednisolone 40 Mg/Ml Vial) 40 mg IV Q8 [facility] Last Admin: 09/20/20 05:09 Dose: 40 mg Documented by: Ondansetron HCl (Ondansetron 4 Mg/2 Ml Vial) 4 mg IV Q8H PRN PRN PRN Reason: NAUSEA/VOMITING Pantoprazole Sodium (Pantoprazole Sodium 40 Mg Tablet) 40 mg PO BID [facility] Last Admin: 09/19/20 21:17 Dose: 40 mg Documented by: Pravastatin Sodium (Pravastatin 20 Mg Tablet) 20 mg PO DAILY@2200 [facility] Last Admin: 09/19/20 21:17 Dose: 20 mg Documented by: Prochlorperazine Maleate (Prochlorperazine 5 Mg Tablet) 10 mg PO Q6H PRN PRN PRN Reason: NAUSEA/VOMITING Last Admin: 09/17/20 17:11 Dose: 10 mg Documented by: Psyllium Hydrophilic Mucilloid (Psyllium 1 Packet) 1 packet PO DAILY PRN PRN PRN Reason: Constipation Senna/Docusate Sodium (Senna/Docusate Sodium 1 Tablet) 2 tablet PO BID PRN PRN Reason: Constipation Sodium Chloride (0.9% Saline Lock 10 Ml Syringe) 10 - 40 ml IV UD PRN PRN Reason: R Port Saline Flush Last Admin: 09/20/20 05:09 Dose: 10 ml Documented by: Sodium Chloride (0.9 % Nacl (Sterile) Posiflush 10 Ml) 10 - 40 ml IV UD PRN PRN Reason: Port access or dressing change Medical Necessity - Tobacco Use Smoking Status: Former smoker Tobacco Use: Cigarettes Assessment/Plan All Active Problems Sepsis (Acute) Healthcare-associated pneumonia (Acute) This is a 65 years old female patient presented to the emergency room because of shortness of breath, found to have severe sepsis secondary to healthcare associated pneumonia, complicated by acute hypoxic respiratory insufficiency and found to have anemia. #1 acute bilateral healthcare associated pneumonia/severe sepsis: Remained on IV Zosyn. She has been afebrile, WBC is trending down. She qualifies for healthcare associated pneumonia because she has been on chemotherapy for lung cancer, last dose was 3 weeks ago. COVID-19 antigen was negative. Pneumococcal and Legionella antigen were negative. Blood culture showed no growth in 48 hours. Urine culture revealed mixed growth. Plan to continue same treatment, will give 1 dose of IV Lasix today, wean off oxygen as tolerated. #2 acute hypoxic respite insufficiency: Secondary to #1 and #4. She is not on home oxygen. Today, she is on 3 L of oxygen. She is on IV antibiotics, IV steroids and bronchodilators. Plan to continue same treatment, encourage incentive spirometer, wean off oxygen as tolerated, ambulatory pulse oximeter. #3 Acute on chronic anemia: secondary to chemotherapy. Patient denied any bleeding from body orifices. No active bleeding. Today's hemoglobin remains at 8.9 g/dL. She received 1 unit of packed RBCs. Hemoglobin stabilized. #4 COPD exacerbation: Remained on IV Solu-Medrol and albuterol as needed. Continue DuoNeb every 6 hours, continue IV antibiotics, incentive spirometer. #5 small cell lung cancer: Currently on chemotherapy, follow-up with Dr. Maldonado as outpatient. #6 hypertension: Blood pressure stable, she is on Norvasc. Lisinopril still on hold. #7 hyperlipidemia: Continue statins. #8 anxiety and depression: Continue Lexapro and Ativan. #9 DVT prophylaxis: SCDs. This note was generated with [employer] dictation software. It may contain incorrect words, spelling, and punctuation that were not noted in checking the note before signing. Inpatient E&M: 70951 [facility] Hosp L2
--- NOTE | 2020-09-20 08:23 | PN_ITS ---
Subjective: Patient did well overnight. No acute issues were reported. Patient still requiring supplemental oxygen to maintain saturations, but is reporting a better productive cough following bronchodilators. Patient states she feels more normal. General: Alert, Oriented x3, Cooperative, No apparent distress, - - Obese. No conversational dyspnea. HEENT: Atraumatic, PERRLA, EOMI, Normocephalic, - - No scleral icterus or injection noted Oral: Moist Mucosa, No Gingival or Mucosal Lesions/ Ulcerations, - - Crowded posterior pharynx Neck: Supple, No Nodes, Trachea Midline Lungs: No rhonchi, No wheeze, No rales, Diminished, - - Fair effort Cardiovascular: Normal S1, Normal S2, No rub noted, No Gallop, Tachycardic Abdomen: Bowel Sounds Present, Soft, Non Tender, Non-Distended, Obese Extremities: No clubbing, No cyanosis, Edema Skin: - - No change compared to previous Musculoskeletal: No Tenderness to Palpation of Joints or Extremities Lymphatic: No Cervical, Supraclavicular, or Inguinal Adenopathy Neurological: Cranial nerves II-XII grossly intact, Neuro grossly intact, Motor Exam 5/5 strength throughout Psych/Mental Status: Alert and oriented to time, place, person, mood and affect Vital Signs Temp Pulse Resp BP Pulse Ox 36.9 C 93 20 H 131/87 H 97 09/20/20 05:06 09/20/20 06:59 09/20/20 05:06 09/20/20 05:06 09/20/20 05:06 Oxygen Flow Rate (L/min) 3 Oxygen Delivery Method Nasal Cannula Weight: 94.4 kg Body Mass Index (BMI) 34.0 Intake and Output for Last 24 Hours 09/18/20 09/19/20 09/20/20 23:59 23:59 23:59 Intake Total 2642.50 / 2642.50 2170 / 2170 110 / 110 Output Total 1050 / 1050 0 / 0 Balance 1592.50 / 1592.50 2170 / 2170 110 / 110 Labs (Last 48 Hours) 09/19/20 09/19/20 09/19/20 04:45 04:45 09:00 WBC 13.3 H RBC 2.13 L Hgb 7.6 L Hct 23.8 L MCV 111.7 H MCH 35.7 H MCHC 31.9 L RDW Std Deviation 88.4 H RDW Coeff of Amanuel 21.6 H Plt Count 265 MPV 9.7 Immature Gran % (Auto) 1.500 H Neut % (Auto) 92.7 H Lymph % (Auto) 2.6 L Traverse % (Auto) 3.1 Eos % (Auto) 0.0 Baso % (Auto) 0.1 Absolute Neuts (auto) 12.3 H Absolute Lymphs (auto) 0.35 L Nucleated RBC % 0 Differential Comment SCANNED Polychromasia RARE Anisocytosis 2+ Macrocytosis 2+ Sodium 139 Potassium 4.3 Chloride 108 H Carbon Dioxide 24.0 Anion Gap 7 BUN 20 H Creatinine 1.11 H Estim Creat Clear Calc 44.25 Est GFR (MDRD) Af Amer 63 Est GFR (MDRD) Non-Af 52 L BUN/Creatinine Ratio 18.0 Glucose 142 H Calcium 8.7 Blood Type A POSITIVE Antibody Screen NEGATIVE Crossmatch See Detail 09/19/20 09/20/20 09/20/20 16:35 06:30 06:30 WBC 11.5 H RBC 2.70 L Hgb 9.1 L 8.9 L Hct 28.4 L 28.5 L MCV 105.6 H D MCH 33.0 H MCHC 31.2 L RDW Std Deviation 92.9 H RDW Coeff of Amanuel 24.0 H Plt Count 262 MPV 9.4 Immature Gran % (Auto) 2.700 H Neut % (Auto) 89.5 H Lymph % (Auto) 3.6 L Traverse % (Auto) 3.9 Eos % (Auto) 0.0 Baso % (Auto) 0.3 Absolute Neuts (auto) 10.3 H Absolute Lymphs (auto) 0.42 L Nucleated RBC % 0.3 Differential Comment Polychromasia Anisocytosis 1+ Macrocytosis Sodium 140 Potassium 4.1 Chloride 107 Carbon Dioxide 26.0 Anion Gap 7 BUN 21 H Creatinine 1.10 H Estim Creat Clear Calc 44.66 Est GFR (MDRD) Af Amer 64 Est GFR (MDRD) Non-Af 53 L BUN/Creatinine Ratio 19.1 Glucose 124 H Calcium 8.8 Blood Type Antibody Screen Crossmatch Microbiology 09/17/20 13:00 Blood Culture (Wb) - Left Forearm Blood Culture - Preliminary No growth in 48 hours. 09/17/20 13:28 Blood Culture (Wb) - Chest Blood Culture - Preliminary No growth in 48 hours. 09/17/20 18:00 Urine, Clean Catch Urine Culture - Final Mixed Gram Positive Organisms Medical Necessity - Tobacco Use Smoking Status: Former smoker Tobacco Use: Cigarettes Assessment/Plan All Active Problems Sepsis (Acute) Healthcare-associated pneumonia (Acute) RECOMMENDATIONS: 1. Continue antibiotics, steroids, bronchodilators, and mucolytic 2. Wean oxygen as tolerated 3. Would start lisinopril at low-dose and titrate up 4. Monitor for bleeding clinically. Check H&H daily 5. Increase activity as tolerated IMPRESSIONS: 1. Severe sepsis secondary to pneumonia in the setting of COPD/small cell lung cancer Patient does have areas of infiltrate on CT scan of the chest. Clinical suspicion for postobstructive pneumonia. Patient appears to be responding to mucolytic therapy. Continue with bronchodilators and antibiotics. Patient appears to have responded to therapy well. Continue to follow cultures. Anticipate transition to prednisone tomorrow. 2. Acute hypoxic respiratory insufficiency secondary to COPD exacerbation secondary to #1 Patient without supplemental oxygen requirements previously. CTA of the chest did not show any pulmonary emboli, but patient is at increased risk secondary to underlying malignancy. Continue with therapy as described above. Cannot exclude the need for supplemental oxygen on discharge. Patient will need a walking oximetry prior to discharge. Patient is already established with [facility]. 3. Acute kidney injury Resolved. Likely prerenal secondary to #1. Continue to monitor. Likely okay to reinitiate lisinopril in a stepwise fashion 4. Acute diarrhea/anemia Clinical suspicion for onset secondary to chemotherapy. Continue to monitor blood counts on a daily basis. No indication for transfusion at this time. 5. Anxiety/depression/obesity/poor historian Complicates care, management, recovery and prognosis. Okay to continue with baseline medications. Inpatient E&M: 36243 Subs Hosp L2
[2020-09-20] MEDS: Gabapentin 300 MG Capsule PO ×3 (08:26→16:12)
[2020-09-20] MEDS: Folic Acid 1 MG Tablet PO (08:26)
[2020-09-20] MEDS: Calcium Carbonate 500 MG Tablet PO ×2 (08:27→16:12)
[2020-09-20] MEDS: Furosemide 40 MG/4 ML Vial IV (09:18)
[2020-09-20] MEDS: Pantoprazole Sodium 40 MG Tablet PO ×2 (09:27→21:13)
[2020-09-20] MEDS: guaiFENesin 1,200 MG Tablet 1200 MG PO ×2 (09:27→21:13)
[2020-09-20] MEDS: Escitalopram Oxalate 20 MG Tablet PO (09:27)
[2020-09-20] MEDS: amLODIPine 5 MG Tablet PO (09:27)
[2020-09-20] MEDS: Famotidine 20 MG Tablet PO (21:13)
[2020-09-20] MEDS: Pravastatin 20 MG Tablet PO (21:13)
[2020-09-21] VITALS (8 sets, daily range): BP systolic 147–161; BP diastolic 77–98; PULSE 87–98; RESP 18–24; TEMP 36.5–36.8; O2SAT 84–96
[2020-09-21] MEDS: Ipratropium/Albuterol Sulfate 3 ML AMPUL.NEB INHALATION ×2 (01:19→05:43)
[2020-09-21] MEDS: LORazepam 0.5 MG Tablet PO (05:23)
[2020-09-21] MEDS: 0.9% Saline Lock 10 ML Syringe IV (05:24)
[2020-09-21 06:23] LABS: Hematocrit 29.7 % (37-47); Hemoglobin 9.6 g/dL (12.0-15.0)
[2020-09-21] MEDS: Calcium Carbonate 500 MG Tablet PO (08:36)
[2020-09-21] MEDS: Folic Acid 1 MG Tablet PO (08:36)
[2020-09-21] MEDS: Gabapentin 300 MG Capsule PO ×2 (08:36→11:42)
--- NOTE | 2020-09-21 08:41 | PCM.PN.PUL ---
Subjective: Patient did well overnight. Patient feels strong enough to go home. Patient denies any current chest pain, abdominal pain, nausea or vomiting. Patient does have a mildly productive cough. Patient does not currently have supplemental oxygen at home, but feels I probably could have used it previously. Patient does state that she follows with [facility] pulmonary as an outpatient - Physical Exam Vitals/I&O's: Vital Signs Temp Pulse Resp BP Pulse Ox 36.8 C 98 18 147/77 H 92 09/21/20 08:30 09/21/20 08:30 09/21/20 08:30 09/21/20 08:30 09/21/20 08:30 Oxygen Flow Rate (L/min) [ 3 AMBULATING with Oxygen #3] Oxygen Flow Rate (L/min) [ 2 AMBULATING with Oxygen #2] Oxygen Flow Rate (L/min) [ 1.5 AMBULATING with Oxygen #1] Oxygen Flow Rate (L/min) [At 2 REST with Oxygen] Oxygen Flow Rate (L/min) 3 Oxygen Delivery Method Nasal Cannula Weight: 92 kg Body Mass Index (BMI) 34.0 Intake and Output for Last 24 Hours 09/19/20 09/20/20 09/21/20 23:59 23:59 23:59 Intake Total 2170 / 2170 1200 / 1200 50 / 50 Output Total 0 / 0 Balance 2170 / 2170 1200 / 1200 50 / 50 General: Alert, Oriented x3, Cooperative, No apparent distress, - - Obese. No conversational dyspnea. HEENT: Atraumatic, PERRLA, EOMI, Normocephalic, - - Glasses in place. Oral: Moist Mucosa, No Gingival or Mucosal Lesions/ Ulcerations, - - Crowded posterior pharynx Neck: Supple, No JVD, No Nodes, Trachea Midline Lungs: No rhonchi, No wheeze, No rales, Diminished, - - Symmetric expansion. Fair effort. Cardiovascular: Regular rate, Regular Rhythm, Normal S1, Normal S2, No murmurs, No rub noted, No Gallop Abdomen: Bowel Sounds Present, Soft, Non Tender, Non-Distended, Obese Extremities: No clubbing, No cyanosis, Edema Skin: - - No change from previous Musculoskeletal: No Tenderness to Palpation of Joints or Extremities Lymphatic: No Cervical, Supraclavicular, or Inguinal Adenopathy Neurological: Cranial nerves II-XII grossly intact, Neuro grossly intact, Motor Exam 5/5 strength throughout Psych/Mental Status: Alert and oriented to time, place, person, mood and affect Microbiology Past 72 Hours 09/17/20 13:00 Blood Culture (Wb) - Left Forearm Blood Culture - Preliminary No growth in 48 hours. 09/17/20 13:28 Blood Culture (Wb) - Chest Blood Culture - Preliminary No growth in 48 hours. 09/17/20 18:00 Urine, Clean Catch Urine Culture - Final Mixed Gram Positive Organisms Laboratory Results 09/21/20 06:15: Hgb 9.6 L, Hct 29.7 L Current Medications Acetaminophen (Acetaminophen 325 Mg Tablet) 650 mg PO Q6H PRN PRN PRN Reason: Pain Score 1-10/Temp > 100.7 F Last Admin: 09/20/20 02:56 Dose: 650 mg Documented by: Al Hydroxide/Mg Hydroxide (Mag Hydrox/Al Hydrox/Simeth 30 Ml Udc) 30 ml PO Q6H PRN PRN PRN Reason: Gastric Burning Albuterol Sulfate (Albuterol 2.5 Mg/3 Ml Vial.Neb.) 2.5 mg INHALATION Q4H PRN PRN Reason: Wheezing Last Admin: 09/19/20 22:15 Dose: 2.5 mg Documented by: Albuterol/Ipratropium (Ipratropium/Albuterol Sulfate 3 Ml Ampul.Neb) 3 ml INHALATION Q6H.RT [facility] Last Admin: 09/21/20 05:43 Dose: 3 ml Documented by: Amlodipine Besylate (Amlodipine 5 Mg Tablet) 5 mg PO DAILY [facility] Last Admin: 09/20/20 09:27 Dose: 5 mg Documented by: Calcium Carbonate (Calcium Carbonate 500 Mg Tablet) 500 mg PO BIDCM [facility] Last Admin: 09/21/20 08:36 Dose: 500 mg Documented by: Escitalopram Oxalate (Escitalopram Oxalate 20 Mg Tablet) 20 mg PO DAILY [facility] Last Admin: 09/20/20 09:27 Dose: 20 mg Documented by: Famotidine (Famotidine 20 Mg Tablet) 20 mg PO QHS [facility] Last Admin: 09/20/20 21:13 Dose: 20 mg Documented by: Folic Acid (Folic Acid 1 Mg Tablet) 1 mg PO DAILY@0800 [facility] Last Admin: 09/21/20 08:36 Dose: 1 mg Documented by: Gabapentin (Gabapentin 300 Mg Capsule) 300 mg PO TIDCM [facility] Last Admin: 09/21/20 08:36 Dose: 300 mg Documented by: Guaifenesin (Guaifenesin 1,200 Mg Tablet) 1,200 mg PO BID [facility] Last Admin: 09/20/20 21:13 Dose: 1,200 mg Documented by: Heparin Sodium (Beef Lung) (Heparin Pf Lock 10 Units/Ml 50 Units/5 Ml Syringe) 50 units IV UD PRN PRN Reason: R Port Heparin Flush Piperacillin Sod/Tazobactam (Sod 3.375 gm/ Sodium Chloride) 50 mls @ 12.5 mls/hr IV Q8 [facility] Last Admin: 09/21/20 05:23 Dose: 12.5 mls/hr Documented by: Sodium Chloride () 250 mls @ 15 mls/hr IV .[id number] PRN PRN Reason: Saline Flush Last Infusion: 09/20/20 23:47 Dose: 0 mls/hr Documented by: Sodium Chloride () 250 mls @ 15 mls/hr IV .[id number] PRN PRN Reason: Additional IVPB Infusion Lorazepam (Lorazepam 0.5 Mg Tablet) 0.5 mg PO TID [facility] Last Admin: 09/21/20 05:23 Dose: 0.5 mg Documented by: Ondansetron HCl (Ondansetron 4 Mg/2 Ml Vial) 4 mg IV Q8H PRN PRN PRN Reason: NAUSEA/VOMITING Pantoprazole Sodium (Pantoprazole Sodium 40 Mg Tablet) 40 mg PO BID [facility] Last Admin: 09/20/20 21:13 Dose: 40 mg Documented by: Pravastatin Sodium (Pravastatin 20 Mg Tablet) 20 mg PO DAILY@2200 [facility] Last Admin: 09/20/20 21:13 Dose: 20 mg Documented by: Prednisone (Prednisone 20 Mg Tablet) 40 mg PO DAILY@0800 [facility] Prochlorperazine Maleate (Prochlorperazine 5 Mg Tablet) 10 mg PO Q6H PRN PRN PRN Reason: NAUSEA/VOMITING Last Admin: 09/17/20 17:11 Dose: 10 mg Documented by: Psyllium Hydrophilic Mucilloid (Psyllium 1 Packet) 1 packet PO DAILY PRN PRN PRN Reason: Constipation Senna/Docusate Sodium (Senna/Docusate Sodium 1 Tablet) 2 tablet PO BID PRN PRN Reason: Constipation Sodium Chloride (0.9% Saline Lock 10 Ml Syringe) 10 - 40 ml IV UD PRN PRN Reason: R Port Saline Flush Last Admin: 09/21/20 05:24 Dose: 10 ml Documented by: Sodium Chloride (0.9 % Nacl (Sterile) Posiflush 10 Ml) 10 - 40 ml IV UD PRN PRN Reason: Port access or dressing change Medical Necessity - Tobacco Use Smoking Status: Former smoker Tobacco Use: Cigarettes Assessment/Plan All Active Problems Sepsis (Acute) Healthcare-associated pneumonia (Acute) RECOMMENDATIONS: 1. Continue antibiotics, bronchodilators, and mucolytic. Complete 7 days of antibiotics 2. Wean oxygen as tolerated. Transition to p.o. prednisone and wean over 12 to 14 days 3. Would start lisinopril at low-dose and titrate up 4. Monitor for bleeding clinically. Check H&H daily 5. Increase activity as tolerated 6. Ok to discharge from a pulmonary perspective with follow-up at [facility] IMPRESSIONS: 1. Severe sepsis secondary to pneumonia in the setting of COPD/small cell lung cancer Patient does have areas of infiltrate on CT scan of the chest. Clinical suspicion for postobstructive pneumonia. Patient appears to be responding to mucolytic therapy. Continue with bronchodilators and antibiotics. Patient appears to have responded to therapy well. Continue to follow cultures. Wean prednisone over 12 to 14 days. Do anticipate need for supplemental oxygen on discharge. 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 2. Acute hypoxic respiratory insufficiency secondary to COPD exacerbation secondary to #1 Patient without supplemental oxygen requirements previously. CTA of the chest did not show any pulmonary emboli, but patient is at increased risk secondary to underlying malignancy. Continue with therapy as described above. Cannot exclude the need for supplemental oxygen on discharge. Patient will need a walking oximetry prior to discharge. Patient is already established with [facility]. 3. Acute kidney injury Resolved. Likely prerenal secondary to #1. Continue to monitor. Likely okay to reinitiate lisinopril in a stepwise fashion starting at a lower dose 4. Acute diarrhea/anemia Clinical suspicion for onset secondary to chemotherapy. Continue to monitor blood counts on a daily basis. No indication for transfusion at this time. 5. Anxiety/depression/obesity/poor historian Complicates care, management, recovery and prognosis. Okay to continue with baseline medications. Inpatient E&M: [id number] Subs Hosp L2
[2020-09-21] MEDS: predniSONE 20 MG Tablet 40 MG PO (09:27)
[2020-09-21] MEDS: Escitalopram Oxalate 20 MG Tablet PO (09:29)
[2020-09-21] MEDS: Pantoprazole Sodium 40 MG Tablet PO (09:29)
[2020-09-21] MEDS: guaiFENesin 1,200 MG Tablet 1200 MG PO (09:29)
[2020-09-21] MEDS: amLODIPine 5 MG Tablet PO (09:29)
--- NOTE | 2020-09-21 11:12 | PCM.DC ---
- Discharge Diagnoses Current Active Problems: Current Active and Chronic Problems Hypertension (Chronic) Hyperlipidemia (Chronic) Anxiety and depression (Chronic) COPD (chronic obstructive pulmonary disease) (Chronic) Small cell lung cancer in adult (Chronic) You will use the following diet at home:: Cardiac Your food should be the consistency of: Regular Discharge Activity: Return to Normal Activity Weight Bearing Status: Weight bearing as tolerated Call your doctor if you observe: Fever of 101 or Higher, Shortness of breath, Dizziness, Fainting spells, Chest pain, Increased palpitations (irregular heartbeat), Uncontrolled pain Instructions: Using Oxygen at Home Allergies/Adverse Reactions: Allergies Iodinated Contrast Media [CONTRASTS] Allergy (Verified 09/17/20 12:47) Shortness of breath pseudoephedrine HCl [From Sudafed] Allergy (Verified 09/17/20 12:46) Shortness of breath sertraline [From Zoloft] Allergy (Verified 09/17/20 12:46) Shortness of breath Medications to take at Discharge Albuterol Inhaler [Ventolin Hfa] 2 puff INHALATION Q4H PRN PRN 09/17/20 Amlodipine [Norvasc] 5 mg PO DAILY 09/17/20 Calcium Citrate 500 mg PO BIDCM 09/17/20 Cholecalciferol (Vitamin D3) [Vitamin D3] 2,000 unit PO DAILY 09/17/20 Escitalopram Oxalate [Lexapro] 20 mg PO DAILY 09/17/20 Esomeprazole Magnesium 40 mg PO BID 09/17/20 Famotidine 20 mg PO QHS 09/17/20 Folic Acid 1 mg PO DAILY@0800 09/17/20 Gabapentin [Neurontin] 300 mg PO TID 09/17/20 Lorazepam [Ativan] 0.5 mg PO TID 09/17/20 Magnesium Chloride [Slow-Mag] 71.5 mg PO BID 09/17/20 Potassium Chloride [Klor-Con M10] 10 meq PO BID 09/17/20 Pravastatin [Pravachol] 20 mg PO DAILY 09/17/20 Prochlorperazine Maleate [Compazine] 10 mg PO Q6H PRN PRN 09/17/20 Trazodone HCl 50 - 100 mg PO QHS 09/17/20 Vitamin E 1,000 unit PO DAILY 09/17/20 Amox/Clavulanate Tablet [Augmentin Tablet] 875 mg PO Q12H #8 tab 09/21/20 Lisinopril [Zestril] 10 mg PO DAILY #30 tablet 09/21/20 Oxygen, Home [Home Oxygen] 2 - 4 lpm NASAL CONT #1 unit 09/21/20 Prednisone 40 mg PO DAILY #30 tab.ds.pk 09/21/20 The following prescriptions were given: Amox/Clavulanate Tablet [Augmentin Tablet] 875 mg PO Q12H #8 tab Transmission Status: Pending to [facility] Oxygen, Home [Home Oxygen] 2 - 4 lpm NASAL CONT #1 unit Prescription Printed Prednisone 40 mg PO DAILY #30 tab.ds.pk Transmission Status: Pending to [facility] Lisinopril [Zestril] 10 mg PO DAILY #30 tablet Transmission Status: Pending to [facility] Primary Care Physician: Jose Tafoya DO [Primary Care Provider] - Please follow up with your Primary Care Physician in: 1 WEEK. Test Results: Test results from this visit will be discussed in further detail at your follow-up appointment, if applicable.
--- NOTE | 2020-09-21 11:12 | DS.PCM_ITS ---
Discharge Date and Diagnosis Date of Admission: 09/17/20 Date of Discharge: 09/21/20 - Primary Discharge Diagnosis Acute Problems: #1 acute bilateral healthcare associated pneumonia. #2 severe sepsis. #3 acute hypoxic respiratory failure. #4 acute on chronic anemia, no active bleeding, attributed to chemotherapy. #5 acute COPD exacerbation. - Secondary Discharge Diagnosis Chronic Problems: Chronic Problems Hypertension (Chronic) Hyperlipidemia (Chronic) Anxiety and depression (Chronic) COPD (chronic obstructive pulmonary disease) (Chronic) Small cell lung cancer in adult (Chronic) Hospital Course and Treatment Imaging Results: Clinical Impression(s) from Imaging Studies Chest X-Ray 09/17/20 13:50 IMPRESSION: Findings suggestive of bibasilar infiltrates worse on the left side superimposed on chronic basilar scarring. Electronically Signed: Robert Petty MD at 14:23 EDT , Service support , Chest CTA 09/17/20 14:09 IMPRESSION: Consolidation in the left lower lobe superimposed on chronic scarring. Focal infiltrate in the right middle lobe as well as scarring in the lingular segment of the left upper lobe. Nodular density seen in the right lung as described. Follow-up is recommended following clearing. Electronically Signed: Robert Petty MD at 14:45 EDT , Service support , Dr. Salvador, critical care. Operations: None Procedures: Blood transfusion, EKG Summary of Care Provided: Patient seen and examined on the day of discharge and appeared to be stable to be discharged home. She has been asking to go home every day since she came out of the intensive care unit. She mentioned that her breathing has been okay but she has been requiring oxygen. Ambulatory pulse oximeter done and patient did qualify for home oxygen to be able to ambulate around home. Her pulse ox was 88% at rest on room air and she required up to 4 L of oxygen with ambulation. Other vital signs were stable. This is a 65 years old female patient presented to the emergency room because of shortness of breath, found to have severe sepsis secondary to healthcare associated pneumonia, complicated by acute hypoxic respiratory insufficiency and found to have acute on chronic anemia. #1 acute bilateral healthcare associated pneumonia/severe sepsis: Treated with IV Zosyn. CTA chest showed left lower lobe consolidation, focal infiltrate in the right middle lobe. COVID-19 antigen was negative. Pneumococcal and Legionella antigen were negative. Blood culture showed no growth in 48 hours. Urine culture revealed mixed growth. Patient discharged home on Augmentin twice daily to complete total of 7 days of treatment. #2 acute hypoxic respite failure: Multifactorial secondary to pneumonia and COPD exacerbation. Patient required oxygen throughout the hospital stay. Although she reported that her breathing is getting better but she remained on oxygen. Her walking pulse oximeter done and results as mentioned above. Patient did qualify for home oxygen 2 to 4 L to be able to ambulate at home and do her daily activities. #3 Acute on chronic anemia: secondary to chemotherapy. There was no active bleeding. She received 1 unit of packed RBCs. Discharge hemoglobin was 9.6 g/dL. #4 COPD exacerbation: Treated with IV Solu-Medrol, DuoNeb every 6 hours and albuterol as needed. Symptoms improved and she did require oxygen upon discharge. Patient discharged on prednisone taper over 12 days, discharged on Augmentin as above. #5 small cell lung cancer: Currently on chemotherapy, follow-up with Dr. Maldonado as outpatient. #6 hypertension: Blood pressure stable, continued on Norvasc and lisinopril changed to 10 mg p.o. daily. #7 hyperlipidemia: Continued on statins. #8 anxiety and depression: Continued on Lexapro and Ativan. Patient discharged home in a stable medical condition, discharged on Augmentin for 4 days more to complete total 7 days of treatment, discharged on prednisone taper, oxygen at 2 to 4 L, recommended from with PCP in 1 week. This note was generated with [employer] software. It may contain incorrect words, spelling, and punctuation that were not noted in checking the note before signing. - Physical Exam Vitals/I&O's: Vital Signs Temp Pulse Resp BP Pulse Ox 98.3 F 98 18 147/77 H 92 09/21/20 08:30 09/21/20 08:30 09/21/20 08:30 09/21/20 08:30 09/21/20 10:24 Oxygen Flow Rate (L/min) [ 4 AMBULATING with Oxygen #3] Oxygen Flow Rate (L/min) [ 3 AMBULATING with Oxygen #2] Oxygen Flow Rate (L/min) [ 2 AMBULATING with Oxygen #1] Oxygen Flow Rate (L/min) [At 2 REST with Oxygen] Oxygen Flow Rate (L/min) 3 Oxygen Delivery Method Nasal Cannula Weight: 202 lb 13.204 oz Body Mass Index (BMI) 34.0 Intake and Output for Last 24 Hours 09/19/20 09/20/20 09/21/20 23:59 23:59 23:59 Intake Total 2170 / 2170 1200 / 1200 111.25 / 111.25 Output Total 0 / 0 Balance 2170 / 2170 1200 / 1200 111.25 / 111.25 General: Alert, Oriented x3, Cooperative, No apparent distress HEENT: Atraumatic, PERRLA, EOMI, Normocephalic Oral: Moist Mucosa, No Gingival or Mucosal Lesions/ Ulcerations Neck: Supple, No JVD, Negative Carotid Bruits, Trachea Midline, Thyroid Normal Size and Texture Lungs: Clear to auscultation, No rhonchi, No wheeze, No rales, Diminished Cardiovascular: Regular rate, Regular Rhythm, Normal S1, Normal S2, PMI Normal Abdomen: Bowel Sounds Present, Soft, Non Tender, Non-Distended, No Hepato- splenomegaly, Obese Extremities: No clubbing, No cyanosis, Edema Skin: No rashes, No breakdown Lymphatic: No Cervical, Supraclavicular, or Inguinal Adenopathy Neurological: Cranial nerves II-XII grossly intact, Neuro grossly intact Psych/Mental Status: Normal Affect, Appropriate Microbiology Past 72 Hours 09/17/20 13:00 Blood Culture (Wb) - Left Forearm Blood Culture - Preliminary No growth in 48 hours. 09/17/20 13:28 Blood Culture (Wb) - Chest Blood Culture - Preliminary No growth in 48 hours. 09/17/20 18:00 Urine, Clean Catch Urine Culture - Final Mixed Gram Positive Organisms Laboratory Results 09/21/20 06:15: Hgb 9.6 L, Hct 29.7 L Current Medications Acetaminophen (Acetaminophen 325 Mg Tablet) 650 mg PO Q6H PRN PRN PRN Reason: Pain Score 1-10/Temp > 100.7 F Last Admin: 09/20/20 02:56 Dose: 650 mg Documented by: Al Hydroxide/Mg Hydroxide (Mag Hydrox/Al Hydrox/Simeth 30 Ml Udc) 30 ml PO Q6H PRN PRN PRN Reason: Gastric Burning Albuterol Sulfate (Albuterol 2.5 Mg/3 Ml Vial.Neb.) 2.5 mg INHALATION Q4H PRN PRN Reason: Wheezing Last Admin: 09/19/20 22:15 Dose: 2.5 mg Documented by: Albuterol/Ipratropium (Ipratropium/Albuterol Sulfate 3 Ml Ampul.Neb) 3 ml INH ALATION Q6H.RT [facility] Last Admin: 09/21/20 05:43 Dose: 3 ml Documented by: Amlodipine Besylate (Amlodipine 5 Mg Tablet) 5 mg PO DAILY [facility] Last Admin: 09/21/20 09:29 Dose: 5 mg Documented by: Calcium Carbonate (Calcium Carbonate 500 Mg Tablet) 500 mg PO BIDCM [facility] Last Admin: 09/21/20 08:36 Dose: 500 mg Documented by: Escitalopram Oxalate (Escitalopram Oxalate 20 Mg Tablet) 20 mg PO DAILY [facility] Last Admin: 09/21/20 09:29 Dose: 20 mg Documented by: Famotidine (Famotidine 20 Mg Tablet) 20 mg PO QHS [facility] Last Admin: 09/20/20 21:13 Dose: 20 mg Documented by: Folic Acid (Folic Acid 1 Mg Tablet) 1 mg PO DAILY@0800 [facility] Last Admin: 09/21/20 08:36 Dose: 1 mg Documented by: Gabapentin (Gabapentin 300 Mg Capsule) 300 mg PO TIDCM [facility] Last Admin: 09/21/20 08:36 Dose: 300 mg Documented by: Guaifenesin (Guaifenesin 1,200 Mg Tablet) 1,200 mg PO BID [facility] Last Admin: 09/21/20 09:29 Dose: 1,200 mg Documented by: Heparin Sodium (Beef Lung) (Heparin Pf Lock 10 Units/Ml 50 Units/5 Ml Syringe) 50 units IV UD PRN PRN Reason: R Port Heparin Flush Piperacillin Sod/Tazobactam (Sod 3.375 gm/ Sodium Chloride) 50 mls @ 12.5 mls/hr IV Q8 [facility] Last Infusion: 09/21/20 09:45 Dose: Infused Documented by: Sodium Chloride () 250 mls @ 15 mls/hr IV .[id number] PRN PRN Reason: Saline Flush Last Infusion: 09/21/20 10:30 Dose: 0 mls/hr Documented by: Sodium Chloride () 250 mls @ 15 mls/hr IV .[id number] PRN PRN Reason: Additional IVPB Infusion Lisinopril (Lisinopril 10 Mg Tablet) 10 mg PO DAILY [facility] Lorazepam (Lorazepam 0.5 Mg Tablet) 0.5 mg PO TID [facility] Last Admin: 09/21/20 05:23 Dose: 0.5 mg Documented by: Ondansetron HCl (Ondansetron 4 Mg/2 Ml Vial) 4 mg IV Q8H PRN PRN PRN Reason: NAUSEA/VOMITING Pantoprazole Sodium (Pantoprazole Sodium 40 Mg Tablet) 40 mg PO BID [facility] Last Admin: 09/21/20 09:29 Dose: 40 mg Documented by: Pravastatin Sodium (Pravastatin 20 Mg Tablet) 20 mg PO DAILY@2200 [facility] Last Admin: 09/20/20 21:13 Dose: 20 mg Documented by: Prednisone (Prednisone 20 Mg Tablet) 40 mg PO DAILY@0800 [facility] Last Admin: 09/21/20 09:27 Dose: 40 mg Documented by: Prochlorperazine Maleate (Prochlorperazine 5 Mg Tablet) 10 mg PO Q6H PRN PRN PRN Reason: NAUSEA/VOMITING Last Admin: 09/17/20 17:11 Dose: 10 mg Documented by: Psyllium Hydrophilic Mucilloid (Psyllium 1 Packet) 1 packet PO DAILY PRN PRN PRN Reason: Constipation Senna/Docusate Sodium (Senna/Docusate Sodium 1 Tablet) 2 tablet PO BID PRN PRN Reason: Constipation Sodium Chloride (0.9% Saline Lock 10 Ml Syringe) 10 - 40 ml IV UD PRN PRN Reason: R Port Saline Flush Last Admin: 09/21/20 05:24 Dose: 10 ml Documented by: Sodium Chloride (0.9 % Nacl (Sterile) Posiflush 10 Ml) 10 - 40 ml IV UD PRN PRN Reason: Port access or dressing change Discharge Activity: Return to Normal Activity Weight Bearing Status: Weight bearing as tolerated Call your doctor if you observe: Fever of 101 or Higher, Shortness of breath, Dizziness, Fainting spells, Chest pain, Increased palpitations (irregular heartbeat), Uncontrolled pain Home Medications: Medications to take at Discharge Albuterol Inhaler [Ventolin Hfa] 2 puff INHALATION Q4H PRN PRN 09/17/20 Amlodipine [Norvasc] 5 mg PO DAILY 09/17/20 Calcium Citrate 500 mg PO BIDCM 09/17/20 Cholecalciferol (Vitamin D3) [Vitamin D3] 2,000 unit PO DAILY 09/17/20 Escitalopram Oxalate [Lexapro] 20 mg PO DAILY 09/17/20 Esomeprazole Magnesium 40 mg PO BID 09/17/20 Famotidine 20 mg PO QHS 09/17/20 Folic Acid 1 mg PO DAILY@0800 09/17/20 Gabapentin [Neurontin] 300 mg PO TID 09/17/20 Lorazepam [Ativan] 0.5 mg PO TID 09/17/20 Magnesium Chloride [Slow-Mag] 71.5 mg PO BID 09/17/20 Potassium Chloride [Klor-Con M10] 10 meq PO BID 09/17/20 Pravastatin [Pravachol] 20 mg PO DAILY 09/17/20 Prochlorperazine Maleate [Compazine] 10 mg PO Q6H PRN PRN 09/17/20 Trazodone HCl 50 - 100 mg PO QHS 09/17/20 Vitamin E 1,000 unit PO DAILY 09/17/20 Amox/Clavulanate Tablet [Augmentin Tablet] 875 mg PO Q12H #8 tab 09/21/20 Lisinopril [Zestril] 10 mg PO DAILY #30 tablet 09/21/20 Oxygen, Home [Home Oxygen] 2 - 4 lpm NASAL CONT #1 unit 09/21/20 Prednisone 40 mg PO DAILY #30 tab.ds.pk 09/21/20 Following Prescriptions Were Given to Patient: Amox/Clavulanate Tablet [Augmentin Tablet] 875 mg PO Q12H #8 tab Transmission Status: Received by [facility] Oxygen, Home [Home Oxygen] 2 - 4 lpm NASAL CONT #1 unit Prescription Printed Prednisone 40 mg PO DAILY #30 tab.ds.pk Transmission Status: Received by [facility] Lisinopril [Zestril] 10 mg PO DAILY #30 tablet Transmission Status: Received by [facility] Primary Care Physician: Jose Tafoya DO [Primary Care Provider] - Please follow up with your Primary Care Physician in: 1 WEEK. Patient Instructions: Using Oxygen at Home Disposition: Home Minutes spent on discharge:: 32 Patient Condition:: Stable Medical Necessity - Tobacco Use Smoking Status: Former smoker Tobacco Use: Cigarettes Meaningful Use Info Meaningful Use Diagnoses (Choose all that apply): None applicable Inpatient E&M: 66072 Disch Hosp
[2020-09-21] MEDS: Lisinopril 10 MG Tablet PO (11:41)
--- NOTE | 2020-09-22 15:06 | CASEMGMT ---
ZAY HERBERT Discharge Follow-up Phone Call: HIMANSHU: Hoang Strata: 3 Call Date: 09/22/20 Discharge Date: 09/21/20 Time of Call: 1505 Duration: 3 min Admitting Diagnosis: Severe sepsis/pneumonia ZAY HERBERT completed follow-up phone call after recent hospitalization. Patient states she is doing well. Patient had no questions or concerns regarding discharge instructions. Patient was able to fill prescriptions without any issues. Patient states she is using her oxygen and breathing ok. Patient has follow-up appt with PCP. Patient had no further questions or concerns at this time.
== END 2020-09-21 12:45 | disposition home or self-care (01) | DRG 871 ==
LOC: ED 15:19 → ICU 16:00 → PCU 09-18 17:26
PROVIDERS: Internal Medicine Critical Care Medicine; Admitting Provider Internal Medicine; Emergency Provider Emergency Medicine; PCP Student in an Organized Health Care Education/Training Program; Visit Provider Hospitalist
DX: A41.9 Sepsis, unspecified organism (principal); J18.9 Pneumonia, unspecified organism; J96.01 Acute respiratory failure with hypoxia; J44.0 Chronic obstructive pulmonary disease with (acute) lower respiratory infection; J44.1 Chronic obstructive pulmonary disease with (acute) exacerbation; C34.90 Malignant neoplasm of unspecified part of unspecified bronchus or lung; R65.20 Severe sepsis without septic shock; Y95 Nosocomial condition; D64.81 Anemia due to antineoplastic chemotherapy; I10 Essential (primary) hypertension; E78.5 Hyperlipidemia, unspecified; F32.9 Major depressive disorder, single episode, unspecified; F41.9 Anxiety disorder, unspecified; T45.1X5A Adverse effect of antineoplastic and immunosuppressive drugs, initial encounter; R19.7 Diarrhea, unspecified; E66.9 Obesity, unspecified; Z68.34 Body mass index [BMI] 34.0-34.9, adult; Z66 Do not resuscitate; Z79.899 Other long term (current) drug therapy; Z87.891 Personal history of nicotine dependence
CPT/HCPCS: 36415; 36591; 71045; 71275; 80048; 80053; 81001; 83605; 83880; 85014; 85018; 85025; 85610; 85730; 86850; 86900; 86901; 86920; 86922; 87040; 87086; 87088; 87426; 87449; 87635; 93005; 94640; 97162; 97166; 97530; 97802; 99251; 99285; J7030; J7040; J7050; P9016; Q9967; A4216; G0463; J0696; J1940; J2405; U0002

== ENCOUNTER 2020-10-11 19:48 | Inpatient (IN) | payer MEDICARE, MEDICAID, SELFPAY ==
[2020-09-17 16:07] VITALS: BMI 34.0
[2020-10-11] VITALS (13 sets, daily range): BP systolic 72–140; BP diastolic 42–112; PULSE 101–112; RESP 16–24; TEMP 36.7–37.4; O2SAT 96–100; BMI 35.7; BMI 35.4; BMI 35.5
--- NOTE | 2020-10-11 20:03 | EKG12_ITS ---
Test Reason : SOB Blood Pressure : / mmHG Vent. Rate : 097 BPM Atrial Rate : 097 BPM P-R Int : 148 ms QRS Dur : 072 ms QT Int : 328 ms P-R-T Axes : 061 051 049 degrees QTc Int : 416 ms Normal sinus rhythm Normal ECG Confirmed by ANGELA CARDONA, GISSEL ([id number]), film or videotape editor AKIRA HELM ([id number]) on 10/15/2020 10:46:18 AM Referred By: NIMA Confirmed By:GISSEL MILLER MD
--- NOTE | 2020-10-11 20:06 | ED.VIS.GEN ---
History of Present Illness Chief Complaint: Weakness Informant: Patient Onset: Yesterday Current Severity: Mild Maximum Severity: Moderate Narrative: Patient presents with increasing shortness of breath and weakness. Patient was admitted to the hospital September 17 for severe sepsis and pneumonia. She went home on oxygen. Patient states yesterday she had developed generalized weakness and fell when her son try to help get her up to the bathroom. She states she has noted increased shortness of breath and wheezing as well. She has had a low-grade fever. She is concerned that she has pneumonia again. - Past Medical History (1) Anxiety and depression Status: Chronic (2) COPD (chronic obstructive pulmonary disease) Status: Chronic (3) Hyperlipidemia Status: Chronic (4) Hypertension Status: Chronic (5) Small cell lung cancer in adult Status: Chronic Past Medical History - Allergies and Home Meds Allergies/Adverse Reactions: Allergies Iodinated Contrast Media [CONTRASTS] Allergy (Verified 10/11/20 19:56) Shortness of breath pseudoephedrine HCl [From Sudafed] Allergy (Verified 10/11/20 19:56) Shortness of breath sertraline [From Zoloft] Allergy (Verified 10/11/20 19:56) Shortness of breath Primary Care Physician: Jose Tafoya DO [Primary Care Provider] - Prior records reviewed: Yes Lives: With Family Smoking Status: Former smoker Review of Systems General: Reports: Fever Eyes: Denies: Visual changes - bilaterally ENT: Denies: Bilateral ear pain Cardiovascular: Denies: Chest pain Respiratory: Reports: Dyspnea, Cough Gastrointestinal: Denies: Abdominal pain, Vomiting, Diarrhea Musculoskeletal: Denies: Swelling, Extremity Pain Skin: Denies: Rash Neurological: Denies: Headache Hematologic: Denies: Easy bruising, Easy bleeding Allergy: Denies: Uticaria Physical Exam Vital Signs/Narrative: Vital Signs Temp Pulse Resp BP Pulse Ox 10/11/20 19:50 99.3 F H 104 H 24 H 140/112 H 100 Inital Vital Signs reviewed: Yes General: Well nourished, Well developed Head: Normocephalic Cardiovascular: Regular rate, Regular rhythm Respiratory: - - Tight expiratory wheezes throughout Abdomen: Soft, Nontender Extremities: Nontender, No edema Skin: Normal color Neurological: Alert, Oriented x3 Psychological: Normal affect Diagnostic/Tx/Re-eval Chest X-Ray - ED: 1 View, Read by ED Physician, Right Infiltrate Impressions Chest X-Ray 10/11/20 21:09 IMPRESSION: Persistent minimal patchy bibasilar airspace opacities are nonspecific and may represent pneumonia in the appropriate clinical setting. Electronically Signed: Meek Barreto MD at 22:00 EDT Tel , Service support , 10/11/20 21:09 Chest 1 View (Portable) [RAD] Stat 10/11/20 20:25 Mucosa - Nasopharyngeal SARS-CoV-2 Antigen (Rapid) - Final Laboratory Results 10/11/20 10/11/20 10/11/20 20:25 20:25 20:25 WBC 3.1 L RBC 2.32 L Hgb 8.0 L Hct 26.1 L MCV 112.5 H MCH 34.5 H MCHC 30.7 L RDW Std Deviation 73.4 H RDW Coeff of Amanuel 17.5 H Plt Count 110 L MPV 9.8 Immature Gran % (Auto) 1.600 H Neut % (Auto) 49.7 Lymph % (Auto) 28.1 [place] % (Auto) 19.0 H Eos % (Auto) 1.6 Baso % (Auto) 0.0 Absolute Neuts (auto) 1.5 L Absolute Lymphs (auto) 0.87 Nucleated RBC % 0 Differential Comment SCANNED Platelet Estimate SLT DEC RBC Morphology N CHROM Anisocytosis 1+ Macrocytosis 1+ PT 13.3 INR 1.1 APTT 30.7 Sodium 133 L Potassium 5.0 Chloride 101 Carbon Dioxide 29.0 Anion Gap 3 L BUN 37 H Creatinine 1.67 H Estim Creat Clear Calc 27.04 Est GFR (MDRD) Af Amer 39 L Est GFR (MDRD) Non-Af 33 L BUN/Creatinine Ratio 22.2 H Glucose 128 H Lactic Acid Calcium 8.4 L Total Bilirubin 0.30 AST 17 ALT 22 Alkaline Phosphatase 51 Total Protein 6.0 L Albumin 2.6 L Globulin 3.4 Albumin/Globulin Ratio 0.8 L Urine Color Urine Clarity Urine pH Ur Specific Canon Urine Protein Urine Glucose (UA) Urine Ketones Urine Occult Blood Urine Nitrite Urine Bilirubin Urine Urobilinogen Ur Leukocyte Esterase 10/11/20 10/11/20 20:25 21:45 WBC RBC Hgb Hct MCV MCH MCHC RDW Std Deviation RDW Coeff of Amanuel Plt Count MPV Immature Gran % (Auto) Neut % (Auto) Lymph % (Auto) [place] % (Auto) Eos % (Auto) Baso % (Auto) Absolute Neuts (auto) Absolute Lymphs (auto) Nucleated RBC % Differential Comment Platelet Estimate RBC Morphology Anisocytosis Macrocytosis PT INR APTT Sodium Potassium Chloride Carbon Dioxide Anion Gap BUN Creatinine Estim Creat Clear Calc Est GFR (MDRD) Af Amer Est GFR (MDRD) Non-Af BUN/Creatinine Ratio Glucose Lactic Acid 1.0 Calcium Total Bilirubin AST ALT Alkaline Phosphatase Total Protein Albumin Globulin Albumin/Globulin Ratio Urine Color Yellow Urine Clarity Clear Urine pH 5.0 Ur Specific Canon 1.025 Urine Protein Negative Urine Glucose (UA) Normal Urine Ketones Negative Urine Occult Blood Negative Urine Nitrite Negative Urine Bilirubin 1 H Urine Urobilinogen 1 H Ur Leukocyte Esterase 25 H - EKG Initial EKG Interpretation: Sinus Rhythm - Sinus at 97. No acute ischemia. - Medical Decision Making Patient was given a DuoNeb treatment, 2 albuterol treatments and Solu-Medrol. On repeat examination patient's lung sounds are significantly improved. Patient did drop her blood pressure into the 70s and 80s systolic. She is currently responding to IV fluids. Blood work does indicate acute dehydration with creatinine up to 1.6. Lactic acid is normal. Chest x-ray appears to show persistent right lower lobe infiltrate. Radiologist interpretation is reviewed. Blood cultures have been drawn. Patient is given Zosyn and vancomycin. Patient will be admitted for further treatment. ED Disposition - Plan for ED Patient: Disposition: Acute Care Hospital [facility] Diagnosis: Pneumonia Referrals: Jose Tafoya DO [Primary Care Provider] -
[2020-10-11 20:42] LABS: Absolute Lymphocyte Count 0.87 X10^3/uL (0.83-4.51); Absolute Neutrophil Count 1.5 X10^3/uL (2.0-7.7); Eosinophil# 0.05 X10^3/uL; Eosinophils% 1.6 % (0-5); Hematocrit 26.1 % (37-47); Lymphocyte # 0.87 X10^3/ul (4.0); Lymphocyte % 28.1 % (19-41); Mean Corp Hgb Conc 30.7 g/dL (32-36); Mean Corpuscular Hgb 34.5 pg (27.0-32.0); Mean Corpuscular Volume 112.5 fL (81-99); Mean Platelet Vol. 9.8 fl (6.2-12.0); Monocyte# 0.59 X10^3/uL; NRBC Flagged by Analyzer 0 % (0-5); Neutrophil # 1.54 X10^3/uL (2.7-7.7); Neutrophil % 49.7 % (47-70); POSITIVE MORPHOLOGY YES; Platelet Count 110 K/mm3 (150-450); RBC Distribution Width CV 17.5 % (11.6-14.6); RBC Distribution Width SD 73.4 fl (35.1-43.9); Red Blood Count 2.32 M/mm3 (4.2-5.4); White Blood Count 3.1 K/mm3 (4.4-11.0)
[2020-10-11 20:44] LABS: Differential Indicated SCAN CRITERIA MET
[2020-10-11] MEDS: Ipratropium/Albuterol Sulfate 3 ML AMPUL.NEB INHALATION (20:47)
[2020-10-11] MEDS: Albuterol 2.5 MG/3 ML VIAL.NEB. INHALATION ×2 (20:47)
[2020-10-11 21:00] LABS: International Normalized Ratio 1.1; Prothrombin Time (Protime)PT. 13.3 SECONDS (11.7-14.9)
[2020-10-11 21:01] LABS: Partial Thromboplast Time 30.7 Seconds (24.1-36.2)
[2020-10-11 21:04] LABS: ALB/GLOB Ratio 0.8 RATIO (0.9-2.4); AST(SGOT) 17 U/L (15-37); Alanine Aminotransfer ALT/SGPT 22 U/L (13-56); Albumin, Serum 2.6 g/dL (3.2-5.0); Alkaline Phosphatase 51 U/L (45-117); Anion Gap 3 (5-15); BUN 37 mg/dL (7-18); BUN/Creat Ratio 22.2 RATIO (10-20); Calcium,Total 8.4 mg/dL (8.5-10.1); Chloride 101 mmol/L (98-107); Creatinine, Serum 1.67 mg/dL (0.55-1.02); EST Glomerular Filtration Rate 33 mL/min (>60); Est Glom Filt Rate - Afr Amer 39 mL/min (>60); Estimated Creatinine Clearance 27.04 ml/min; Globulin 3.4 g/dL (2.2-4.2); Glucose 128 mg/dL (74-106); Sodium Level 133 mmol/L (136-145)
[2020-10-11 21:07] LABS: Anisocytosis 1+; Differential Comment SCANNED; Macrocytosis 1+; Platelet Estimate SLT DEC (ADEQ); Red Cell Morphology N CHROM NORMAL (NORM C&C)
--- NOTE | 2020-10-11 21:09 | RAD_ITS ---
STUDY: X-RAY CHEST REASON FOR EXAM: Female, 65 years old. Sob TECHNIQUE: Single frontal view of the chest. COMPARISON: 09/17/2020 FINDINGS: Port-A-Cath tip is noted in the mid SVC, similar to prior. Cardiac silhouette unremarkable. Pulmonary vascularity unremarkable. Aorta atherosclerotic. Patchy bibasilar airspace opacities. No pleural effusions. Upper abdomen unremarkable. Osseous structures intact. No pneumothorax. RAD/Chest 1 View (Portable) IMPRESSION: Persistent minimal patchy bibasilar airspace opacities are nonspecific and may represent pneumonia in the appropriate clinical setting. Electronically Signed: Meek Barreto MD at 22:00 EDT Tel , Service support ,
[2020-10-11] MEDS: MethylPREDNISolone 125 MG/2 ML Vial IV (21:17)
[2020-10-11] MEDS: 0.9% Normal Saline 1,000 ML 150 ML IV (21:26)
[2020-10-11] MEDS: 0.9% Normal Saline 1,000 ML 999 ML IV (21:43)
[2020-10-11 21:59] LABS: Red Blood Cells-Urine 0 SEEN /hpf (0-5)
[2020-10-11 22:02] LABS: Color, Urine Yellow (Yellow); Glucose, Dipstick Normal (Normal); Ketone-Dipstick Negative (Negative); Leukocyte Esterase-Dipstick 25 /ul (Negative); Nitrite-Dipstick Negative (Negative); Occult Blood-Urine Negative /ul (Negative); Protein-Dipstick Negative (Negative); Specific Gravity, Urine 1.025 (1.002-1.030); Urine Bilirubin Dipstick 1 mg/dL (Negative); Urine Clarity Clear (Clear); Urine Urobilinogen 1 mg/dl (Normal)
[2020-10-11 22:15] LABS: Amorphous Sediment 2+; Bacteria 2+ /hpf (None Seen); Hyaline Cast 10-25 SEEN /lpf (0-5); Mucous, Urine 1+ /hpf (<or=2+); Renal Epithelial Cells 0-5 SEEN /hpf (0-5); Squamous Epithelial Cells - UA 0-5 SEEN /hpf (5-10); White Blood Cells 10-25 SEEN /hpf (0-5)
--- NOTE | 2020-10-11 22:48 | PCM.HP.STD ---
History of Present Illness Date of Admission: 10/11/20 Chief Complaint: SOB The patient is a 65 year old F with a PMH as below who was recently admitted to the hospital for bilateral pneumonia and was treated appropriately and discharged on 3 L of oxygen. She presents back to the ER and is afebrile without a leukocytosis however she had increased weakness and shortness of breath. She is not tachypneic and does not need increased oxygen requirement. She did receive a dose of her chemotherapy on October 03 and since then she has been borderline hypotensive, her creatinine in the ER was elevated to 1.62 which is an АНДРЕЙ was started on IV fluids in the ER. She says that some the weakness was related to a new medication she was started by oncology but she cannot remember the name. Past Medical History Past Medical History (Chronic Problems): Chronic Problems Hypertension (Chronic) Hyperlipidemia (Chronic) Anxiety and depression (Chronic) COPD (chronic obstructive pulmonary disease) (Chronic) Small cell lung cancer in adult (Chronic) Allergies Iodinated Contrast Media [CONTRASTS] Allergy (Verified 10/11/20 19:56) Shortness of breath pseudoephedrine HCl [From Sudafed] Allergy (Verified 10/11/20 19:56) Shortness of breath sertraline [From Zoloft] Allergy (Verified 10/11/20 19:56) Shortness of breath Home Medications: Ambulatory Orders Medication Instructions Recorded Albuterol Inhaler [Ventolin Hfa] 2 puff INHALATION Q4H PRN PRN 09/17/20 Amlodipine [Norvasc] 5 mg PO DAILY 09/17/20 Cholecalciferol (Vitamin D3) 2,000 unit PO DAILY 09/17/20 [Vitamin D3] Escitalopram Oxalate [Lexapro] 10 mg PO DAILY 09/17/20 Famotidine 20 mg PO QHS 09/17/20 Folic Acid 1 mg PO DAILY@0800 09/17/20 Gabapentin [Neurontin] 300 mg PO TID 09/17/20 Lorazepam [Ativan] 0.5 mg PO TID 09/17/20 Magnesium Chloride [Slow-Mag] 71.5 mg PO BID 09/17/20 Potassium Chloride [Klor-Con M10] 10 meq PO BID 09/17/20 Pravastatin [Pravachol] 20 mg PO DAILY 09/17/20 Prochlorperazine Maleate 10 mg PO Q6H PRN PRN 09/17/20 [Compazine] Trazodone HCl 25 mg PO QHS 09/17/20 Vitamin E 1,000 unit PO DAILY 09/17/20 Lisinopril [Zestril] 10 mg PO DAILY #30 tablet 09/21/20 Oxygen, Home [Home Oxygen] 2 - 4 lpm NASAL CONT #1 unit 09/21/20 Meloxicam 7.5 mg PO DAILY 10/11/20 Surgical History: appendectomy Lives: With Family Smoking Status: Former smoker Tobacco Use: Cigarettes Alcohol: None Drugs: None - *Family History Maternal History Items: Heart Disease Paternal History Items: Cancer Review of Systems Constitutional: Reports: Fever, Weakness. Denies: Chills, Weight Change HEENT: Denies: Head Aches, Sinus Congestion, Sinus Drainage Cardiovascular: Denies: Chest Pain, Palpitations Respiratory: Reports: Cough, Shortness of Breath. Denies: Shortness of breath at rest, Sputum production Gastrointestinal: Denies: Abdominal Pain, Nausea, Vomiting Genitourinary: Denies: Dysuria Musculoskeletal: Denies: Joint Pain, Joint Tenderness Skin: Denies: Rash, Wounds Neurological: Denies: Focal weakness, Numbness, Tingling Psychiatric: Denies: Anxiety, Depression Hematologic/ Lymphatic: Denies: Easy Bruising, Easy Bleeding VTE Information - Inpt Only VTE Present on Admission: No Patient Problems: Active and Suspected Problems Pneumonia (Acute) - Physical Exam Vitals/I&O's: Vital Signs Temp Pulse Resp BP Pulse Ox 98.0 F 107 H 17 84/73 L 97 10/11/20 21:52 10/11/20 22:11 10/11/20 22:11 10/11/20 22:11 10/11/20 22:11 Oxygen Flow Rate (L/min) 3 Oxygen Delivery Method Nasal Cannula Weight: 201 lb 15.095 oz Body Mass Index (BMI) 35.7 Intake and Output for Last 24 Hours 10/09/20 10/10/20 10/11/20 23:59 23:59 23:59 Intake Total 42.5 / 42.5 Balance 42.5 / 42.5 General: Alert, Oriented x3, Cooperative, No apparent distress HEENT: Atraumatic, PERRLA, EOMI, Normocephalic Oral: Moist Mucosa Neck: Supple, No JVD Lungs: No rhonchi, No rales, Diminished, Wheezes, - Cardiovascular: Regular Rhythm, Normal S1, Normal S2, No murmurs, Tachycardic Abdomen: Soft, Non Tender, Non-Distended, No Hepato-splenomegaly Extremities: No edema, Capillary Refill Less than 3 Seconds Skin: No rashes, No breakdown Neurological: Neuro grossly intact, Sensory exam intact to light touch and pain Psych/Mental Status: Normal Affect, Appropriate Microbiology Past 72 Hours 10/11/20 20:25 Mucosa - Nasopharyngeal SARS-CoV-2 Antigen (Rapid) - Final Laboratory Results 10/11/20 20:25: WBC 3.1 L, RBC 2.32 L, Hgb 8.0 L, Hct 26.1 L, MCV 112.5 H, MCH 34.5 H, MCHC 30.7 L, RDW Std Deviation 73.4 H, RDW Coeff of Amanuel 17.5 H, Plt Count 110 L, MPV 9.8, Immature Gran % (Auto) 1.600 H, Neut % (Auto) 49.7, Lymph % (Auto) 28.1, [place] % (Auto) 19.0 H, Eos % (Auto) 1.6, Baso % (Auto) 0.0, Absolute Neuts (auto) 1.5 L, Absolute Lymphs (auto) 0.87, Nucleated RBC % 0, Differential Comment SCANNED, Platelet Estimate SLT DEC, RBC Morphology N CHROM, Anisocytosis 1+, Macrocytosis 1+ 10/11/20 20:25: PT 13.3, INR 1.1, APTT 30.7 10/11/20 20:25: Sodium 133 L, Potassium 5.0, Chloride 101, Carbon Dioxide 29.0, Anion Gap 3 L, BUN 37 H, Creatinine 1.67 H, Estim Creat Clear Calc 27.04, Est GFR (MDRD) Af Amer 39 L, Est GFR (MDRD) Non-Af 33 L, BUN/Creatinine Ratio 22.2 H, Glucose 128 H, Calcium 8.4 L, Total Bilirubin 0.30, AST 17, ALT 22, Alkaline Phosphatase 51, Total Protein 6.0 L, Albumin 2.6 L, Globulin 3.4, Albumin/Globulin Ratio 0.8 L 10/11/20 20:25: Lactic Acid 1.0 10/11/20 21:45: Urine Color Yellow, Urine Clarity Clear, Urine pH 5.0, Ur Specific [place] 1.025, Urine Protein Negative, Urine Glucose (UA) Normal, Urine Ketones Negative, Urine Occult Blood Negative, Urine Nitrite Negative, Urine Bilirubin 1 H, Urine Urobilinogen 1 H, Ur Leukocyte Esterase 25 H, Urine RBC 0 SEEN, Urine WBC 10-25 SEEN, Ur Squamous Epith Cells 0-5 SEEN, Ur Renal Epithelial Cell 0-5 SEEN, Amorphous Sediment 2+, Urine Bacteria 2+, Hyaline Casts 10-25 SEEN, Urine Mucus 1+ Current Medications Sodium Chloride () 1,000 mls @ 150 mls/hr IV .[id number] MELANIE Last Infusion: 10/11/20 21:43 Dose: 0 mls/hr Documented by: Vancomycin HCl 1,250 mg/ (Sodium Chloride) 275 mls @ 167 mls/hr IV X1 ONE Stop: 10/12/20 00:08 Assessment/Plan All Active Problems Pneumonia (Acute) Sepsis (Acute) Healthcare-associated pneumonia (Acute) 1. COPD exacerbation/weakness/small cell lung cancer with pancytopenia/hypotension -She is not requiring any increased oxygen -She is currently afebrile without a leukocytosis -Chest x-ray on my read does not show significant difference from her previous chest x-ray -Weakness could be secondary to the chemotherapy that received last week, will have PT and OT evaluate her for possible placement -We will continue to monitor her anemia and her low platelet count. We will hold her blood pressure medications as since she started chemotherapy she has been more hypotensive than hypertensive 2. АНДРЕЙ -Baseline creatinine is around 2.7, on admission she is 1.6 -Continue with IV fluids and monitor 3. Anxiety/depression -Stable -Continue with Lexapro and Ativan DVT: Heparin Inpatient E&M: [id number] Init Hosp L2
[2020-10-11] MEDS: 0.9% Normal Saline 1,000 ML 100 ML IV (23:40)
[2020-10-12] VITALS (13 sets, daily range): BP systolic 100–139; BP diastolic 59–78; PULSE 89–123; RESP 16–22; TEMP 36.3–37; O2SAT 96–98
[2020-10-12] MEDS: Acetaminophen 325 MG Tablet 650 MG PO (03:00)
[2020-10-12] MEDS: Gabapentin 300 MG Capsule PO ×3 (05:17→20:47)
[2020-10-12] MEDS: LORazepam 0.5 MG Tablet PO ×3 (05:17→20:47)
[2020-10-12] MEDS: Heparin Injection (Vial) 5,000 UNIT/ML VIAL 5000 UNIT SC ×3 (05:18→20:48)
[2020-10-12 06:32] LABS: Absolute Lymphocyte Count 0.17 X10^3/uL (0.83-4.51); Absolute Neutrophil Count 1.2 X10^3/uL (2.0-7.7); Hematocrit 24.9 % (37-47); Hemoglobin 7.7 g/dL (12.0-15.0); Lymphocyte # 0.17 X10^3/ul (4.0); Lymphocyte % 11.4 % (19-41); Mean Corp Hgb Conc 30.9 g/dL (32-36); Mean Corpuscular Hgb 34.8 pg (27.0-32.0); Mean Corpuscular Volume 112.7 fL (81-99); Mean Platelet Vol. 10.5 fl (6.2-12.0); Monocyte# 0.07 X10^3/uL; Monocyte% 4.7 % (0-10); NRBC Flagged by Analyzer 0 % (0-5); Neutrophil # 1.21 X10^3/uL (2.7-7.7); Neutrophil % 81.2 % (47-70); POSITIVE COUNT YES; POSITIVE DIFFERENTIAL YES; POSITIVE MORPHOLOGY YES; Platelet Count 108 K/mm3 (150-450); RBC Distribution Width CV 17.2 % (11.6-14.6); RBC Distribution Width SD 71.7 fl (35.1-43.9); Red Blood Count 2.21 M/mm3 (4.2-5.4)
[2020-10-12 06:34] LABS: Differential Indicated SCAN CRITERIA MET; White Blood Count 1.5 K/mm3 (4.4-11.0)
[2020-10-12 07:03] LABS: Anion Gap 5 (5-15); BUN 34 mg/dL (7-18); BUN/Creat Ratio 27.4 RATIO (10-20); Calcium,Total 8.2 mg/dL (8.5-10.1); Chloride 104 mmol/L (98-107); Creatinine, Serum 1.24 mg/dL (0.55-1.02); EST Glomerular Filtration Rate 46 mL/min (>60); Est Glom Filt Rate - Afr Amer 55 mL/min (>60); Estimated Creatinine Clearance 36.42 ml/min; Glucose 203 mg/dL (74-106); Potassium 5.4 mmol/L (3.5-5.1); Sodium Level 133 mmol/L (136-145)
[2020-10-12] MEDS: Ipratropium/Albuterol Sulfate 3 ML AMPUL.NEB INHALATION ×4 (07:45→20:12)
[2020-10-12] MEDS: 0.9% Normal Saline 1,000 ML 100 ML IV (08:59)
[2020-10-12] MEDS: Escitalopram Oxalate 10 MG Tablet PO (08:59)
[2020-10-12] MEDS: Folic Acid 1 MG Tablet PO (08:59)
--- NOTE | 2020-10-12 11:18 | PN_ITS ---
<[facility] - Last Filed: 10/12/20 11:34> Patient Problems: Active and Suspected Problems Pneumonia (Acute) Subjective: Patient seen and examined. Ambulating to restroom, reports continued shortness of breath and wheezing. Denies fever, chills. Reports chronic cough. - Physical Exam Vitals/I&O's: Vital Signs Temp Pulse Resp BP Pulse Ox 97.3 F L 98 18 105/59 L 98 10/12/20 09:01 10/12/20 09:01 10/12/20 09:01 10/12/20 09:01 10/12/20 09:01 Oxygen Flow Rate (L/min) 3 Oxygen Delivery Method Nasal Cannula Weight: 200 lb 2.876 oz Body Mass Index (BMI) 35.4 Intake and Output for Last 24 Hours 10/10/20 10/11/20 10/12/20 23:59 23:59 23:59 Intake Total 1842.5 / 1842.5 1141.67 / 1141.67 Output Total 0 / 0 Balance 1842.5 / 1842.5 1141.67 / 1141.67 General: Alert, Oriented x3, Cooperative HEENT: Atraumatic, PERRLA, EOMI, Normocephalic Neck: Supple, No JVD, Negative Carotid Bruits Lungs: Diminished, Wheezes Cardiovascular: Regular rate, No murmurs Abdomen: Bowel Sounds Present, Soft, Non Tender, Non-Distended Extremities: No clubbing, No cyanosis, No edema, Capillary Refill Less than 3 Seconds Skin: No rashes, No breakdown Musculoskeletal: No Tenderness to Palpation of Joints or Extremities Neurological: Cranial nerves II-XII grossly intact, Neuro grossly intact Psych/Mental Status: Normal Affect, Appropriate Microbiology Past 72 Hours 10/11/20 20:25 Mucosa - Nasopharyngeal SARS-CoV-2 Antigen (Rapid) - Final Laboratory Results 10/11/20 20:25: WBC 3.1 L, RBC 2.32 L, Hgb 8.0 L, Hct 26.1 L, MCV 112.5 H, MCH 34.5 H, MCHC 30.7 L, RDW Std Deviation 73.4 H, RDW Coeff of Amanuel 17.5 H, Plt Count 110 L, MPV 9.8, Immature Gran % (Auto) 1.600 H, Neut % (Auto) 49.7, Lymph % (Auto) 28.1, [place] % (Auto) 19.0 H, Eos % (Auto) 1.6, Baso % (Auto) 0.0, Absolute Neuts (auto) 1.5 L, Absolute Lymphs (auto) 0.87, Nucleated RBC % 0, Differential Comment SCANNED, Platelet Estimate SLT DEC, RBC Morphology N CHROM, Anisocytosis 1+, Macrocytosis 1+ 10/11/20 20:25: PT 13.3, INR 1.1, APTT 30.7 10/11/20 20:25: Sodium 133 L, Potassium 5.0, Chloride 101, Carbon Dioxide 29.0, Anion Gap 3 L, BUN 37 H, Creatinine 1.67 H, Estim Creat Clear Calc 27.04, Est GFR (MDRD) Af Amer 39 L, Est GFR (MDRD) Non-Af 33 L, BUN/Creatinine Ratio 22.2 H , Glucose 128 H, Calcium 8.4 L, Total Bilirubin 0.30, AST 17, ALT 22, Alkaline Phosphatase 51, Total Protein 6.0 L, Albumin 2.6 L, Globulin 3.4, Albumin/Globulin Ratio 0.8 L 10/11/20 20:25: Lactic Acid 1.0 10/11/20 21:45: Urine Color Yellow, Urine Clarity Clear, Urine pH 5.0, Ur Specific [place] 1.025, Urine Protein Negative, Urine Glucose (UA) Normal, Urine Ketones Negative, Urine Occult Blood Negative, Urine Nitrite Negative, Urine Bilirubin 1 H, Urine Urobilinogen 1 H, Ur Leukocyte Esterase 25 H, Urine RBC 0 SEEN, Urine WBC 10-25 SEEN, Ur Squamous Epith Cells 0-5 SEEN, Ur Renal Epithelial Cell 0-5 SEEN, Amorphous Sediment 2+, Urine Bacteria 2+, Hyaline Casts 10-25 SEEN, Urine Mucus 1+ 10/12/20 05:32: WBC 1.5 L, RBC 2.21 L, Hgb 7.7 L, Hct 24.9 L, MCV 112.7 H, MCH 34.8 H, MCHC 30.9 L, RDW Std Deviation 71.7 H, RDW Coeff of Amanuel 17.2 H, Plt Count 108 L, MPV 10.5, Immature Gran % (Auto) 2.700 H, Neut % (Auto) 81.2 H, Lymph % (Auto) 11.4 L, [place] % (Auto) 4.7, Eos % (Auto) 0.0, Baso % (Auto) 0.0, Absolute Neuts (auto) 1.2 L, Absolute Lymphs (auto) 0.17 L, Nucleated RBC % 0, Diff Path Review November10/12/20 05:32: Sodium 133 L, Potassium 5.4 H, Chloride 104, Carbon Dioxide 24.0, Anion Gap 5, BUN 34 H, Creatinine 1.24 H, Estim Creat Clear Calc 36.42, Est GFR (MDRD) Af Amer 55 L, Est GFR (MDRD) Non-Af 46 L, BUN/Creatinine Ratio 27.4 H, Glucose 203 H, Calcium 8.2 L Current Medications Acetaminophen (Acetaminophen 325 Mg Tablet) 650 mg PO Q6H PRN PRN PRN Reason: Pain Score 1-10/Temp > 100.7 F Last Admin: 10/12/20 03:00 Dose: 650 mg Documented by: Albuterol/Ipratropium (Ipratropium/Albuterol Sulfate 3 Ml Ampul.Neb) 3 ml INHALATION Q4HWA.RT [facility] Last Admin: 10/12/20 11:04 Dose: 3 ml Documented by: Escitalopram Oxalate (Escitalopram Oxalate 10 Mg Tablet) 10 mg PO DAILY [facility] Last Admin: 10/12/20 08:59 Dose: 10 mg Documented by: Famotidine (Famotidine 20 Mg Tablet) 20 mg PO QHS [facility] Folic Acid (Folic Acid 1 Mg Tablet) 1 mg PO DAILY@0800 [facility] Last Admin: 10/12/20 08:59 Dose: 1 mg Documented by: Gabapentin (Gabapentin 300 Mg Capsule) 300 mg PO TID [facility] Last Admin: 10/12/20 05:17 Dose: 300 mg Documented by: Guaifenesin (Guaifenesin 10 Ml Udc (200mg/10ml)) 20 ml PO Q4H PRN PRN PRN Reason: COUGH Heparin Sodium (Porcine) (Heparin Injection (Vial) 5,000 Unit/Ml Vial) 5,000 unit SC Q8 [facility] Last Admin: 10/12/20 05:18 Dose: 5,000 unit Documented by: Sodium Chloride () 1,000 mls @ 100 mls/hr IV .Q10H [facility] Last Admin: 10/12/20 08:59 Dose: 100 mls/hr Documented by: Lorazepam (Lorazepam 0.5 Mg Tablet) 0.5 mg PO TID [facility] Last Admin: 10/12/20 05:17 Dose: 0.5 mg Documented by: Melatonin (Melatonin 3 Mg Tablet) 3 mg PO QHS PRN PRN PRN Reason: INSOMNIA Methylprednisolone (Methylprednisolone 40 Mg/Ml Vial) 40 mg IV Q8 [facility] Last Admin: 10/12/20 05:17 Dose: 40 mg Documented by: Ondansetron HCl (Ondansetron 4 Mg/2 Ml Vial) 4 mg IV Q8H PRN PRN PRN Reason: NAUSEA/VOMITING Pravastatin Sodium (Pravastatin 20 Mg Tablet) 20 mg PO QHS [facility] Sodium Chloride (0.9% Saline Lock 10 Ml Syringe) 10 - 40 ml IV UD PRN PRN Reason: SALINE FLUSH Trazodone HCl (Trazodone 50 Mg Tablet) 25 mg PO QHS [facility] Medical Necessity - Tobacco Use Smoking Status: Former smoker Tobacco Use: Cigarettes Assessment/Plan All Active Problems Pneumonia (Acute) Sepsis (Acute) Healthcare-associated pneumonia (Acute) 1. COPD exacerbation with chronic hypoxic respiratory failure-on 3 to 4 L nasal cannula at baseline. Chest x-ray with persistent patchy bibasilar opacities. IV Solu-Medrol. Albuterol and DuoNeb aerosols. Continue supplement oxygen to maintain O2 at or above 90%. 2. Acute kidney injury on chronic kidney disease stage IIIa-improving, trend BMP. 3. Chronic anemia/pancytopenia-secondary to chemotherapy. Trend CBC, transfuse for hemoglobin less than 7. 4. Small cell lung cancer- following with Dr. Maldonado. 5. Anxiety/depression-on Lexapro, Ativan. 6. Hypertension-blood pressure regimen on hold due to hypotension on admission. Stable. 7. Hyperlipidemia-continue statin. DVT prophylaxis- Heparin sc This patient was seen by KIKO Jean under the supervision of Dr. Prince. <Jaydon Prince - Last Filed: 10/12/20 15:00> Objective: Patient admitted with COPD exacerbation Patient has gradual progression of shortness of breath, first with moderate exertion to mild to minimal exertion even on ADL, dyspnea at rest. Shortness of breath improved after admission. Physical General: Alert, Oriented x3, Cooperative HEENT: Atraumatic, PERRLA, EOMI, Normocephalic Oral: No Gingival or Mucosal Lesions/ Ulcerations Neck: Supple, No JVD, Negative Carotid Bruits Lungs: Air entry severely diminished in bilateral lungs. Bilateral gross wheezing/rhonchi, expiratory. Mild tachypnea Cardiovascular: Regular rate, Regular Rhythm, Normal S1, Normal S2, No murmurs Abdomen: Bowel Sounds Present, Soft, Non Tender, Non-Distended : No renal angle tenderness. No suprapubic tenderness. Extremities: No edema, Capillary Refill Less than 3 Seconds Skin: No rashes, No breakdown Musculoskeletal: No Tenderness to Palpation of Joints or Extremities Neurological: Cranial nerves II-XII grossly intact, Deep Tendon Reflexes 2+/4 and Symmetrical, Neuro grossly intact Psych/Mental Status: Normal Affect, Appropriate. - Physical Exam Vitals/I&O's: Vital Signs Temp Pulse Resp BP Pulse Ox 97.3 F L 89 22 H 105/59 L 98 10/12/20 09:01 10/12/20 14:47 10/12/20 14:47 10/12/20 09:01 10/12/20 09:01 Oxygen Flow Rate (L/min) 2 Oxygen Delivery Method Nasal Cannula Weight: 200 lb 2.876 oz Body Mass Index (BMI) 35.4 Intake and Output for Last 24 Hours 10/10/20 10/11/20 10/12/20 23:59 23:59 23:59 Intake Total 1842.5 / 1842.5 1141.67 / 1141.67 Output Total 0 / 0 Balance 1842.5 / 1842.5 1141.67 / 1141.67 Microbiology Past 72 Hours 10/11/20 20:25 Mucosa - Nasopharyngeal SARS-CoV-2 Antigen (Rapid) - Final Laboratory Results 10/11/20 20:25: WBC 3.1 L, RBC 2.32 L, Hgb 8.0 L, Hct 26.1 L, MCV 112.5 H, MCH 34.5 H, MCHC 30.7 L, RDW Std Deviation 73.4 H, RDW Coeff of Amanuel 17.5 H, Plt Count 110 L, MPV 9.8, Immature Gran % (Auto) 1.600 H, Neut % (Auto) 49.7, Lymph % (Auto) 28.1, [place] % (Auto) 19.0 H, Eos % (Auto) 1.6, Baso % (Auto) 0.0, Absolute Neuts (auto) 1.5 L, Absolute Lymphs (auto) 0.87, Nucleated RBC % 0, Differential Comment SCANNED, Platelet Estimate SLT DEC, RBC Morphology N CHROM, Anisocytosis 1+, Macrocytosis 1+ 10/11/20 20:25: PT 13.3, INR 1.1, APTT 30.7 10/11/20 20:25: Sodium 133 L, Potassium 5.0, Chloride 101, Carbon Dioxide 29.0, Anion Gap 3 L, BUN 37 H, Creatinine 1.67 H, Estim Creat Clear Calc 27.04, Est GFR (MDRD) Af Amer 39 L, Est GFR (MDRD) Non-Af 33 L, BUN/Creatinine Ratio 22.2 H , Glucose 128 H, Calcium 8.4 L, Total Bilirubin 0.30, AST 17, ALT 22, Alkaline Phosphatase 51, Total Protein 6.0 L, Albumin 2.6 L, Globulin 3.4, Albumin/Globulin Ratio 0.8 L 10/11/20 20:25: Lactic Acid 1.0 10/11/20 21:45: Urine Color Yellow, Urine Clarity Clear, Urine pH 5.0, Ur Specific [place] 1.025, Urine Protein Negative, Urine Glucose (UA) Normal, Urine Ketones Negative, Urine Occult Blood Negative, Urine Nitrite Negative, Urine Bilirubin 1 H, Urine Urobilinogen 1 H, Ur Leukocyte Esterase 25 H, Urine RBC 0 SEEN, Urine WBC 10-25 SEEN, Ur Squamous Epith Cells 0-5 SEEN, Ur Renal Ep ithelial Cell 0-5 SEEN, Amorphous Sediment 2+, Urine Bacteria 2+, Hyaline Casts 10-25 SEEN, Urine Mucus 1+ 10/12/20 05:32: WBC 1.5 L, RBC 2.21 L, Hgb 7.7 L, Hct 24.9 L, MCV 112.7 H, MCH 34.8 H, MCHC 30.9 L, RDW Std Deviation 71.7 H, RDW Coeff of Amanuel 17.2 H, Plt Count 108 L, MPV 10.5, Immature Gran % (Auto) 2.700 H, Neut % (Auto) 81.2 H, Lymph % (Auto) 11.4 L, [place] % (Auto) 4.7, Eos % (Auto) 0.0, Baso % (Auto) 0.0, Absolute Neuts (auto) 1.2 L, Absolute Lymphs (auto) 0.17 L, Nucleated RBC % 0, Diff Path Review November10/12/20 05:32: Sodium 133 L, Potassium 5.4 H, Chloride 104, Carbon Dioxide 24.0, Anion Gap 5, BUN 34 H, Creatinine 1.24 H, Estim Creat Clear Calc 36.42, Est GFR (MDRD) Af Amer 55 L, Est GFR (MDRD) Non-Af 46 L, BUN/Creatinine Ratio 27.4 H, Glucose 203 H, Calcium 8.2 L Current Medications Acetaminophen (Acetaminophen 325 Mg Tablet) 650 mg PO Q6H PRN PRN PRN Reason: Pain Score 1-10/Temp > 100.7 F Last Admin: 10/12/20 03:00 Dose: 650 mg Documented by: Albuterol/Ipratropium (Ipratropium/Albuterol Sulfate 3 Ml Ampul.Neb) 3 ml INHALATION Q4HWA.RT [facility] Last Admin: 10/12/20 14:09 Dose: 3 ml Documented by: Escitalopram Oxalate (Escitalopram Oxalate 10 Mg Tablet) 10 mg PO DAILY [facility] Last Admin: 10/12/20 08:59 Dose: 10 mg Documented by: Famotidine (Famotidine 20 Mg Tablet) 20 mg PO QHS MELANIE Folic Acid (Folic Acid 1 Mg Tablet) 1 mg PO DAILY@0800 [facility] Last Admin: 10/12/20 08:59 Dose: 1 mg Documented by: Gabapentin (Gabapentin 300 Mg Capsule) 300 mg PO TID [facility] Last Admin: 10/12/20 13:23 Dose: 300 mg Documented by: Guaifenesin (Guaifenesin 10 Ml Udc (200mg/10ml)) 20 ml PO Q4H PRN PRN PRN Reason: COUGH Heparin Sodium (Porcine) (Heparin Injection (Vial) 5,000 Unit/Ml Vial) 5,000 unit SC Q8 [facility] Last Admin: 10/12/20 13:23 Dose: 5,000 unit Documented by: Sodium Chloride () 1,000 mls @ 100 mls/hr IV .Q10H [facility] Last Admin: 10/12/20 08:59 Dose: 100 mls/hr Documented by: Lorazepam (Lorazepam 0.5 Mg Tablet) 0.5 mg PO TID [facility] Last Admin: 10/12/20 13:22 Dose: 0.5 mg Documented by: Melatonin (Melatonin 3 Mg Tablet) 3 mg PO QHS PRN PRN PRN Reason: INSOMNIA Methylprednisolone (Methylprednisolone 40 Mg/Ml Vial) 40 mg IV Q8 [facility] Last Admin: 10/12/20 13:23 Dose: 40 mg Documented by: Ondansetron HCl (Ondansetron 4 Mg/2 Ml Vial) 4 mg IV Q8H PRN PRN PRN Reason: NAUSEA/VOMITING Pravastatin Sodium (Pravastatin 20 Mg Tablet) 20 mg PO QHS [facility] Sodium Chloride (0.9% Saline Lock 10 Ml Syringe) 10 - 40 ml IV UD PRN PRN Reason: SALINE FLUSH Trazodone HCl (Trazodone 50 Mg Tablet) 25 mg PO QHS [facility] Assessment/Plan This patient was seen in conjunction with Vikki HARPER. I have independently interviewed and examined the patient and reviewed pertinent history, examination findings, laboratory and plan of management. I have reviewed the note and agree with the documented findings with the few additional points. In brief, patient is a 65-year-old female with history of COPD and chronic hypoxic respiratory failure on 3 to 4 L of home oxygen admitted with COPD exacerbation. On scheduled bronchodilator, IV Solu-Medrol, Mucinex, incentive spirometry and chest physiotherapy. Chest x-ray shows persistent minimal patchy bibasilar airspace disease nonspecific, no change from previous chest x-ray of September 21. She does not have fever, purulent sputum production suggestive of pneumonia. АНДРЕЙ on CKD stage IIIa: BUN/creatinine shows improvement. Rest of the comorbidities as mentioned above I have discussed my assessment with Vikki HARPER and orders have been reviewed. Clinical Impression(s) from Imaging Studies Chest X-Ray 10/11/20 21:09 IMPRESSION: Persistent minimal patchy bibasilar airspace opacities are nonspecific and may represent pneumonia in the appropriate clinical setting. Electronically Signed: Meek Barreto MD at 22:00 EDT Tel , Service support , Inpatient E&M: [id number] [facility] Hosp L2
[2020-10-12] MEDS: guaiFENesin/D-Methorphan TAB.SR.12H 1 TABLET PO ×2 (16:02→20:47)
[2020-10-12] MEDS: traZODone 50 MG Tablet 25 MG PO (20:47)
[2020-10-12] MEDS: Famotidine 20 MG Tablet PO (20:47)
[2020-10-12] MEDS: Pravastatin 20 MG Tablet PO (20:47)
[2020-10-13] VITALS (9 sets, daily range): BP systolic 130–145; BP diastolic 68–89; PULSE 96–115; RESP 16–20; TEMP 36.1–36.8; O2SAT 92–97
[2020-10-13 05:51] LABS: Hematocrit 25.8 % (37-47); Hemoglobin 8.1 g/dL (12.0-15.0); Mean Corp Hgb Conc 31.4 g/dL (32-36); Mean Corpuscular Hgb 34.2 pg (27.0-32.0); Mean Corpuscular Volume 108.9 fL (81-99); Mean Platelet Vol. 10.1 fl (6.2-12.0); POSITIVE MORPHOLOGY YES; Platelet Count 116 K/mm3 (150-450); RBC Distribution Width CV 17.2 % (11.6-14.6); RBC Distribution Width SD 68.1 fl (35.1-43.9); Red Blood Count 2.37 M/mm3 (4.2-5.4); White Blood Count 3.8 K/mm3 (4.4-11.0)
[2020-10-13] MEDS: LORazepam 0.5 MG Tablet PO ×2 (05:52→14:30)
[2020-10-13] MEDS: Gabapentin 300 MG Capsule PO ×2 (05:52→14:29)
[2020-10-13] MEDS: Heparin Injection (Vial) 5,000 UNIT/ML VIAL 5000 UNIT SC (05:54)
[2020-10-13 06:12] LABS: Anion Gap 6 (5-15); BUN 26 mg/dL (7-18); BUN/Creat Ratio 26.9 RATIO (10-20); Calcium,Total 8.7 mg/dL (8.5-10.1); Chloride 103 mmol/L (98-107); Creatinine, Serum 0.97 mg/dL (0.55-1.02); EST Glomerular Filtration Rate 61 mL/min (>60); Est Glom Filt Rate - Afr Amer 74 mL/min (>60); Estimated Creatinine Clearance 46.56 ml/min; Glucose 135 mg/dL (74-106); Potassium 4.9 mmol/L (3.5-5.1); Sodium Level 135 mmol/L (136-145)
[2020-10-13 06:15] LABS: Scan Indicated on CBC? Y/N YES- FLAGS NOTED
[2020-10-13] MEDS: Ipratropium/Albuterol Sulfate 3 ML AMPUL.NEB INHALATION ×2 (06:54→10:38)
[2020-10-13] MEDS: Folic Acid 1 MG Tablet PO (09:01)
[2020-10-13] MEDS: guaiFENesin/D-Methorphan TAB.SR.12H 1 TABLET PO (09:21)
[2020-10-13] MEDS: Escitalopram Oxalate 10 MG Tablet PO (09:21)
--- NOTE | 2020-10-13 11:13 | DCINST_ITS ---
- Discharge Diagnoses Current Active Problems: Current Active and Chronic Problems Pneumonia (Acute) Hypertension (Chronic) Hyperlipidemia (Chronic) Anxiety and depression (Chronic) COPD (chronic obstructive pulmonary disease) (Chronic) Small cell lung cancer in adult (Chronic) You will use the following diet at home:: No restrictions Discharge Activity: Return to Normal Activity Call your doctor if you observe: Shortness of breath, Dizziness, Fainting spells, Chest pain Additional Instructions: Due to low blood pressure following chemo treatment, recommend monitoring blood pressure daily prior to morning medications. Hold blood pressure medications for systolic blood pressure (top number) less than 100. Allergies/Adverse Reactions: Allergies Iodinated Contrast Media [CONTRASTS] Allergy (Verified 10/11/20 19:56) Shortness of breath pseudoephedrine HCl [From Sudafed] Allergy (Verified 10/11/20 19:56) Shortness of breath sertraline [From Zoloft] Allergy (Verified 10/11/20 19:56) Shortness of breath Medications to take at Discharge Albuterol Inhaler [Ventolin Hfa] 2 puff INHALATION Q4H PRN PRN 09/17/20 Amlodipine [Norvasc] 5 mg PO DAILY 09/17/20 Cholecalciferol (Vitamin D3) [Vitamin D3] 2,000 unit PO DAILY 09/17/20 Escitalopram Oxalate [Lexapro] 10 mg PO DAILY 09/17/20 Famotidine 20 mg PO QHS 09/17/20 Folic Acid 1 mg PO DAILY@0800 09/17/20 Gabapentin [Neurontin] 300 mg PO TID 09/17/20 Lorazepam [Ativan] 0.5 mg PO TID 09/17/20 Magnesium Chloride [Slow-Mag] 71.5 mg PO BID 09/17/20 Potassium Chloride [Klor-Con M10] 10 meq PO BID 09/17/20 Pravastatin [Pravachol] 20 mg PO DAILY 09/17/20 Prochlorperazine Maleate [Compazine] 10 mg PO Q6H PRN PRN 09/17/20 Trazodone HCl 25 mg PO QHS 09/17/20 Vitamin E 1,000 unit PO DAILY 09/17/20 Lisinopril [Zestril] 10 mg PO DAILY #30 tablet 09/21/20 Oxygen, Home [Home Oxygen] 2 - 4 lpm NASAL CONT #1 unit 09/21/20 Meloxicam 7.5 mg PO DAILY 10/11/20 Prednisone See Taper PO DAILY #30 tablet 10/13/20 The following prescriptions were given: Prednisone See Taper PO DAILY #30 tablet Transmission Status: Pending to [facility] Primary Care Physician: Jose Tafoya DO [Primary Care Provider] - Please follow up with your Primary Care Physician in: 1 Week Test Results: Test results from this visit will be discussed in further detail at your follow- up appointment, if applicable. Please Follow Up With: Antony Maldonado MD When: As scheduled Proposed Discharge Date: 10/13/20
--- NOTE | 2020-10-13 11:19 | PCM.DC.SUM ---
<MedardoVikki OPERATIONS EXAMINER - Last Filed: 10/13/20 11:27> Discharge Date and Diagnosis - Problem List Patient Problems: Active and Suspected Problems Pneumonia (Acute) Date of Admission: 10/11/20 Date of Discharge: 10/13/20 - Primary Discharge Diagnosis Acute Problems: Active Problems 1. COPD exacerbation with chronic hypoxic respiratory failure 2. Acute kidney injury on chronic kidney disease stage IIIa 3. Chronic anemia/pancytopenia 4. Small cell lung cancer 5. Anxiety/depression 6. Hypertension 7. Hyperlipidemia - Secondary Discharge Diagnosis Chronic Problems: Chronic Problems Hypertension (Chronic) Hyperlipidemia (Chronic) Anxiety and depression (Chronic) COPD (chronic obstructive pulmonary disease) (Chronic) Small cell lung cancer in adult (Chronic) Hospital Course and Treatment Imaging Results: Diagnostic Data Chest X-Ray 10/11/20 21:09 IMPRESSION: Persistent minimal patchy bibasilar airspace opacities are nonspecific and may represent pneumonia in the appropriate clinical setting. Electronically Signed: Meek Barreto MD at 22:00 EDT Tel , Service support , Operations: None Procedures: None Summary of Care Provided: The patient is a 65 year old F admitted 10/11/2020 due to shortness of breath. 1. COPD exacerbation with chronic hypoxic respiratory failure-on 3 to 4 L nasal cannula at baseline. Chest x-ray with persistent patchy bibasilar opacities. IV Solu-Medrol during admission. Albuterol and DuoNeb aerosols. Patient's oxygen has remained stable on baseline O2 requirements. Wheezing significantly improved. Stable for discharge on prednisone taper. Continue supplement oxygen to maintain O2 at above 90%. Follow-up with PCP in 1 week. 2. Acute kidney injury on chronic kidney disease stage IIIa-acute kidney injury resolved. 3. Chronic anemia/pancytopenia-secondary to chemotherapy. Trend CBC, transfuse for hemoglobin less than 7. 4. Small cell lung cancer- following with Dr. Maldonado. 5. Anxiety/depression-on Lexapro, Ativan. 6. Hypertension-resume home blood pressure medicine with hold parameters. Discussed with patient holding antihypertensive regimen for systolic blood pressure less than 100. Patient states her blood pressure typically trends low following chemotherapy treatment. 7. Hyperlipidemia-continue statin. General: Alert, Oriented x3, Cooperative HEENT: Atraumatic, PERRLA, EOMI, Normocephalic Neck: Supple, No JVD, Negative Carotid Bruits Lungs: Diminished, clear to auscultation Cardiovascular: Regular rate, No murmurs Abdomen: Bowel Sounds Present, Soft, Non Tender, Non-Distended Extremities: No clubbing, No cyanosis, No edema, Capillary Refill Less than 3 Seconds Skin: No rashes, No breakdown Musculoskeletal: No Tenderness to Palpation of Joints or Extremities Neurological: Cranial nerves II-XII grossly intact, Neuro grossly intact Psych/Mental Status: Normal Affect, Appropriate Patient seen and examined prior to discharge. Physical assessment as noted above. Patient is stable for discharge with follow up recommendations as noted above. This patient was seen by KIKO Jean under the supervision of Dr. Santillan. Patient Problems: Active and Suspected Problems Pneumonia (Acute) - Physical Exam Vitals/I&O's: Vital Signs Temp Pulse Resp BP Pulse Ox 97 F L 96 20 H 145/89 H 97 10/13/20 09:10 10/13/20 10:38 10/13/20 10:38 10/13/20 09:10 10/13/20 09:10 Oxygen Flow Rate (L/min) 3 Oxygen Delivery Method Nasal Cannula Weight: 200 lb 2.876 oz Body Mass Index (BMI) 35.4 Intake and Output for Last 24 Hours 10/11/20 10/12/20 10/13/20 23:59 23:59 23:59 Intake Total 1842.5 / 1842.5 2633.34 / 2633.34 120 / 120 Output Total 0 / 0 Balance 1842.5 / 1842.5 2633.34 / 2633.34 120 / 120 Microbiology Past 72 Hours 10/11/20 21:45 Urine, Clean Catch Urine Culture - Preliminary Culture exhibits no growth. 10/11/20 20:25 Mucosa - Nasopharyngeal SARS-CoV-2 Antigen (Rapid) - Final Laboratory Results 10/13/20 05:30: WBC 3.8 L, RBC 2.37 L, Hgb 8.1 L, Hct 25.8 L, MCV 108.9 H, MCH 34.2 H, MCHC 31.4 L, RDW Std Deviation 68.1 H, RDW Coeff of Amanuel 17.2 H, Plt Count 116 L, MPV 10.1 10/13/20 05:30: Sodium 135 L, Potassium 4.9, Chloride 103, Carbon Dioxide 26.0, Anion Gap 6, BUN 26 H, Creatinine 0.97, Estim Creat Clear Calc 46.56, Est GFR (MDRD) Af Amer 74, Est GFR (MDRD) Non-Af 61, BUN/Creatinine Ratio 26.9 H, Glucose 135 H, Calcium 8.7 Current Medications Acetaminophen (Acetaminophen 325 Mg Tablet) 650 mg PO Q6H PRN PRN PRN Reason: Pain Score 1-10/Temp > 100.7 F Last Admin: 10/12/20 03:00 Dose: 650 mg Documented by: Albuterol/Ipratropium (Ipratropium/Albuterol Sulfate 3 Ml Ampul.Neb) 3 ml INHALATION Q4HWA.RT [facility] Last Admin: 10/13/20 10:38 Dose: 3 ml Documented by: Escitalopram Oxalate (Escitalopram Oxalate 10 Mg Tablet) 10 mg PO DAILY [facility] Last Admin: 10/13/20 09:21 Dose: 10 mg Documented by: Famotidine (Famotidine 20 Mg Tablet) 20 mg PO QHS [facility] Last Admin: 10/12/20 20:47 Dose: 20 mg Documented by: Folic Acid (Folic Acid 1 Mg Tablet) 1 mg PO DAILY@0800 [facility] Last Admin: 10/13/20 09:01 Dose: 1 mg Documented by: Gabapentin (Gabapentin 300 Mg Capsule) 300 mg PO TID [facility] Last Admin: 10/13/20 05:52 Dose: 300 mg Documented by: Guaifenesin (Guaifenesin/D-Methorphan Tab.Sr.12h) 1 tablet PO BID [facility] Last Admin: 10/13/20 09:21 Dose: 1 tablet Documented by: Heparin Sodium (Porcine) (Heparin Injection (Vial) 5,000 Unit/Ml Vial) 5,000 unit SC Q8 [facility] Last Admin: 10/13/20 05:54 Dose: 5,000 unit Documented by: Lorazepam (Lorazepam 0.5 Mg Tablet) 0.5 mg PO TID [facility] Last Admin: 10/13/20 05:52 Dose: 0.5 mg Documented by: Melatonin (Melatonin 3 Mg Tablet) 3 mg PO QHS PRN PRN PRN Reason: INSOMNIA Methylprednisolone (Methylprednisolone 40 Mg/Ml Vial) 40 mg IV Q8 [facility] Last Admin: 10/13/20 05:53 Dose: 40 mg Documented by: Ondansetron HCl (Ondansetron 4 Mg/2 Ml Vial) 4 mg IV Q8H PRN PRN PRN Reason: NAUSEA/VOMITING Pravastatin Sodium (Pravastatin 20 Mg Tablet) 20 mg PO QHS [facility] Last Admin: 10/12/20 20:47 Dose: 20 mg Documented by: Sodium Chloride (0.9% Saline Lock 10 Ml Syringe) 10 - 40 ml IV UD PRN PRN Reason: SALINE FLUSH Trazodone HCl (Trazodone 50 Mg Tablet) 25 mg PO QHS [facility] Last Admin: 10/12/20 20:47 Dose: 25 mg Documented by: Discharge Diet: No Restrictions Discharge Activity: Return to Normal Activity Call your doctor if you observe: Shortness of breath, Dizziness, Fainting spells, Chest pain Home Medications: Medications to take at Discharge Albuterol Inhaler [Ventolin Hfa] 2 puff INHALATION Q4H PRN PRN 09/17/20 Amlodipine [Norvasc] 5 mg PO DAILY 09/17/20 Cholecalciferol (Vitamin D3) [Vitamin D3] 2,000 unit PO DAILY 09/17/20 Escitalopram Oxalate [Lexapro] 10 mg PO DAILY 09/17/20 Famotidine 20 mg PO QHS 09/17/20 Folic Acid 1 mg PO DAILY@0800 09/17/20 Gabapentin [Neurontin] 300 mg PO TID 09/17/20 Lorazepam [Ativan] 0.5 mg PO TID 09/17/20 Magnesium Chloride [Slow-Mag] 71.5 mg PO BID 09/17/20 Potassium Chloride [Klor-Con M10] 10 meq PO BID 09/17/20 Pravastatin [Pravachol] 20 mg PO DAILY 09/17/20 Prochlorperazine Maleate [Compazine] 10 mg PO Q6H PRN PRN 09/17/20 Trazodone HCl 25 mg PO QHS 09/17/20 Vitamin E 1,000 unit PO DAILY 09/17/20 Lisinopril [Zestril] 10 mg PO DAILY #30 tablet 09/21/20 Oxygen, Home [Home Oxygen] 2 - 4 lpm NASAL CONT #1 unit 09/21/20 Meloxicam 7.5 mg PO DAILY 10/11/20 Prednisone See Taper PO DAILY #30 tablet 10/13/20 Following Prescriptions Were Given to Patient: Prednisone See Taper PO DAILY #30 tablet Transmission Status: Received by [facility]ABE[facility] DONAL[facility]1956 [facility] Primary Care Physician: Jose Tafoya DO [Primary Care Provider] - Please follow up with your Primary Care Physician in: 1 Week Please Follow Up With: Antony Maldonado MD When: As scheduled Disposition: Home Minutes spent on discharge:: 35 Patient Condition:: Stable Medical Necessity - Tobacco Use Smoking Status: Former smoker Tobacco Use: Cigarettes Meaningful Use Info Meaningful Use Diagnoses (Choose all that apply): None applicable <Byron Santillan - Last Filed: 10/13/20 12:43> Discharge Date and Diagnosis - Primary Discharge Diagnosis Acute Problems: Active Problems Pneumonia (Acute) - Secondary Discharge Diagnosis Chronic Problems: Chronic Problems Hypertension (Chronic) Hyperlipidemia (Chronic) Anxiety and depression (Chronic) COPD (chronic obstructive pulmonary disease) (Chronic) Small cell lung cancer in adult (Chronic) Hospital Course and Treatment Operations: None Procedures: None Summary of Care Provided: The patient is a 65 year old F presents with shortness of breath. Patient was found to be in acute on chronic COPD exacerbation. Patient had a negative rapid antigen for COVID-19. Patient was started on steroids as well as bronchodilators and has steadily improved. Patient is now back on her baseline oxygen. Patient continue with prednisone taper. Additionally, patient had acute kidney injury where her creatinine was 1.67 and is down to 0.97. Patient will be discharged home in stable condition. Case discussed with the patient's son at bedside. [] - Physical Exam Vitals/I&O's: Vital Signs Temp Pulse Resp BP Pulse Ox 36.1 C L 96 20 H 145/89 H 92 10/13/20 09:10 10/13/20 10:38 10/13/20 10:38 10/13/20 09:10 10/13/20 11:54 Oxygen Flow Rate (L/min) [ 4 AMBULATING with Oxygen #1] Oxygen Flow Rate (L/min) 3 Oxygen Delivery Method Nasal Cannula Weight: 90.8 kg Body Mass Index (BMI) 35.4 Intake and Output for Last 24 Hours 10/11/20 10/12/20 10/13/20 23:59 23:59 23:59 Intake Total 1842.5 / 1842.5 2633.34 / 2633.34 120 / 120 Output Total 0 / 0 Balance 1842.5 / 1842.5 2633.34 / 2633.34 120 / 120 General: Alert, No apparent distress Neck: No Nodes, Thyroid Normal Size and Texture Lungs: Clear to auscultation, Diminished Cardiovascular: Regular rate, Regular Rhythm, Normal S1, Normal S2 Abdomen: Bowel Sounds Present, Soft, Non Tender, Non-Distended Extremities: No edema, No Calf Tenderness Microbiology Past 72 Hours 10/11/20 21:45 Urine, Clean Catch Urine Culture - Preliminary Culture exhibits no growth. 10/11/20 20:25 Mucosa - Nasopharyngeal SARS-CoV-2 Antigen (Rapid) - Final Laboratory Results 10/12/20 05:32: Diff Path Review Reviewed 10/13/20 05:30: WBC 3.8 L, RBC 2.37 L, Hgb 8.1 L, Hct 25.8 L, MCV 108.9 H, MCH 34.2 H, MCHC 31.4 L, RDW Std Deviation 68.1 H, RDW Coeff of Amanuel 17.2 H, Plt Count 116 L, MPV 10.1 10/13/20 05:30: Sodium 135 L, Potassium 4.9, Chloride 103, Carbon Dioxide 26.0, Anion Gap 6, BUN 26 H, Creatinine 0.97, Estim Creat Clear Calc 46.56, Est GFR (MDRD) Af Amer 74, Est GFR (MDRD) Non-Af 61, BUN/Creatinine Ratio 26.9 H, Glucose 135 H, Calcium 8.7 Current Medications Acetaminophen (Acetaminophen 325 Mg Tablet) 650 mg PO Q6H PRN PRN PRN Reason: Pain Score 1-10/Temp > 100.7 F Last Admin: 10/12/20 03:00 Dose: 650 mg Documented by: Albuterol/Ipratropium (Ipratropium/Albuterol Sulfate 3 Ml Ampul.Neb) 3 ml INHALATION Q4HWA.RT [facility] Last Admin: 10/13/20 10:38 Dose: 3 ml Documented by: Escitalopram Oxalate (Escitalopram Oxalate 10 Mg Tablet) 10 mg PO DAILY [facility] Last Admin: 10/13/20 09:21 Dose: 10 mg Documented by: Famotidine (Famotidine 20 Mg Tablet) 20 mg PO QHS [facility] Last Admin: 10/12/20 20:47 Dose: 20 mg Documented by: Folic Acid (Folic Acid 1 Mg Tablet) 1 mg PO DAILY@0800 [facility] Last Admin: 10/13/20 09:01 Dose: 1 mg Documented by: Gabapentin (Gabapentin 300 Mg Capsule) 300 mg PO TID [facility] Last Admin: 10/13/20 05:52 Dose: 300 mg Documented by: Guaifenesin (Guaifenesin/D-Methorphan Tab.Sr.12h) 1 tablet PO BID [facility] Last Admin: 10/13/20 09:21 Dose: 1 tablet Documented by: Heparin Sodium (Porcine) (Heparin Injection (Vial) 5,000 Unit/Ml Vial) 5,000 unit SC Q8 [facility] Last Admin: 10/13/20 05:54 Dose: 5,000 unit Documented by: Lorazepam (Lorazepam 0.5 Mg Tablet) 0.5 mg PO TID [facility] Last Admin: 10/13/20 05:52 Dose: 0.5 mg Documented by: Melatonin (Melatonin 3 Mg Tablet) 3 mg PO QHS PRN PRN PRN Reason: INSOMNIA Methylprednisolone (Methylprednisolone 40 Mg/Ml Vial) 40 mg IV Q8 [facility] Last Admin: 10/13/20 05:53 Dose: 40 mg Documented by: Ondansetron HCl (Ondansetron 4 Mg/2 Ml Vial) 4 mg IV Q8H PRN PRN PRN Reason: NAUSEA/VOMITING Pravastatin Sodium (Pravastatin 20 Mg Tablet) 20 mg PO QHS [facility] Last Admin: 10/12/20 20:47 Dose: 20 mg Documented by: Sodium Chloride (0.9% Saline Lock 10 Ml Syringe) 10 - 40 ml IV UD PRN PRN Reason: SALINE FLUSH Trazodone HCl (Trazodone 50 Mg Tablet) 25 mg PO QHS [facility] Last Admin: 10/12/20 20:47 Dose: 25 mg Documented by: Discharge Diet: No Restrictions Discharge Activity: Return to Normal Activity Disposition: Home Minutes spent on discharge:: 35 Patient Condition:: Stable Medical Necessity - Tobacco Use Smoking Status: Former smoker Tobacco Use: Cigarettes Meaningful Use Info Meaningful Use Diagnoses (Choose all that apply): None applicable Inpatient E&M: 36449 Disch Hosp
--- NOTE | 2020-10-13 11:33 | CASEMGMT ---
Readmission chart review: Pt was initially admitted 09/17-09/21/20 for Severe sepsis,pna and was discharged home with a WW and O2 thru [employer] 2-4L. Pt returned to [facility] ED on 10/11/20 for general weakness, unable to stand, fall. Pt currently in treatment for lung CA. Pt readmitted for COPD. Therapy states no further therapy recommended at this time. Pt with a sat of 97% 3L at this time. CM to follow for any further discharge planning/needs. SStedwin COLLAZO CM
[2020-10-13 12:20] LABS: Pathologist Review Reviewed
--- NOTE | 2020-10-13 12:49 | PHA.DC.MR ---
Pharmacy Service has performed discharge medication reconciliation for this patient. The patient's discharge medication list was reviewed for discrepancies and discrepancies were resolved. Home Medications Albuterol Inhaler [Ventolin Hfa] 2 puff INHALATION Q4H PRN PRN 09/17/20 Amlodipine [Norvasc] 5 mg PO DAILY 09/17/20 Cholecalciferol (Vitamin D3) [Vitamin D3] 2,000 unit PO DAILY 09/17/20 Escitalopram Oxalate [Lexapro] 10 mg PO DAILY 09/17/20 Famotidine 20 mg PO QHS 09/17/20 Folic Acid 1 mg PO DAILY@0800 09/17/20 Gabapentin [Neurontin] 300 mg PO TID 09/17/20 Lorazepam [Ativan] 0.5 mg PO TID 09/17/20 Magnesium Chloride [Slow-Mag] 71.5 mg PO BID 09/17/20 Potassium Chloride [Klor-Con M10] 10 meq PO BID 09/17/20 Pravastatin [Pravachol] 20 mg PO DAILY 09/17/20 Prochlorperazine Maleate [Compazine] 10 mg PO Q6H PRN PRN 09/17/20 Trazodone HCl 25 mg PO QHS 09/17/20 Vitamin E 1,000 unit PO DAILY 09/17/20 Lisinopril [Zestril] 10 mg PO DAILY #30 tablet 09/21/20 Oxygen, Home [Home Oxygen] 2 - 4 lpm NASAL CONT #1 unit 09/21/20 Meloxicam 7.5 mg PO DAILY 10/11/20 Prednisone See Taper PO DAILY #30 tablet 10/13/20
[2020-10-13] MEDS: 0.9% Saline Lock 10 ML Syringe IV ×2 (14:33→15:09)
--- NOTE | 2020-10-14 15:31 | CASEMGMT ---
ZAY HERBERT Discharge Follow-up Phone Call: HIMANSHU: Bin Strata: 3 Call Date: 10/14/20 Discharge Date: 10/13/20 Time of Call: 1530 Duration: 5 min Admitting Diagnosis: COPD RN KEON completed follow-up phone call after recent hospitalization. Patient states she is doing well and her breathing has been well. Patient states she is using her walker and getting around ok in the home. Patient had no questions or concerns regarding discharge instructions. Patient was able to fill prescriptions without any issues. Patient has follow-up appts scheduled. Patient had no further questions or concerns at this time.
== END 2020-10-13 15:58 | disposition home or self-care (01) | DRG 190 ==
LOC: ED 22:06 → PCU 23:04
PROVIDERS: Nurse Practitioner Family; Admitting Provider Family Medicine; Emergency Provider Emergency Medicine; PCP Student in an Organized Health Care Education/Training Program
DX: J44.0 Chronic obstructive pulmonary disease with (acute) lower respiratory infection (principal); J18.9 Pneumonia, unspecified organism; D61.810 Antineoplastic chemotherapy induced pancytopenia; N17.9 Acute kidney failure, unspecified; J96.11 Chronic respiratory failure with hypoxia; C34.90 Malignant neoplasm of unspecified part of unspecified bronchus or lung; J44.1 Chronic obstructive pulmonary disease with (acute) exacerbation; I95.2 Hypotension due to drugs; T45.1X5A Adverse effect of antineoplastic and immunosuppressive drugs, initial encounter; I12.9 Hypertensive chronic kidney disease with stage 1 through stage 4 chronic kidney disease, or unspecified chronic kidney disease; N18.31 Chronic kidney disease, stage 3a; E78.5 Hyperlipidemia, unspecified; F32.9 Major depressive disorder, single episode, unspecified; F41.9 Anxiety disorder, unspecified; Z79.1 Long term (current) use of non-steroidal anti-inflammatories (NSAID); Z99.81 Dependence on supplemental oxygen; Z79.899 Other long term (current) drug therapy; Z87.01 Personal history of pneumonia (recurrent); Z87.891 Personal history of nicotine dependence
CPT/HCPCS: 36591; 71045; 80048; 80053; 81001; 83605; 85025; 85027; 85610; 85730; 87040; 87086; 87426; 93005; 94640; 97161; 97165; 97802; 99251; 99285; J7030; J7050; A4216; G0463

== ENCOUNTER 2020-10-29 02:21 | Observation (INO) | payer MEDICARE, MEDICAID, SELFPAY ==
[2020-10-11 23:14] VITALS: BMI 35.4
[2020-10-29] VITALS (17 sets, daily range): BP systolic 101–128; BP diastolic 62–99; PULSE 93–122; RESP 18–27; TEMP 36.6–37.2; O2SAT 76–99; BMI 37.0; BMI 35.2
--- NOTE | 2020-10-29 02:30 | EKG12_ITS ---
Test Reason : SOB Blood Pressure : / mmHG Vent. Rate : 115 BPM Atrial Rate : 115 BPM P-R Int : 138 ms QRS Dur : 072 ms QT Int : 292 ms P-R-T Axes : 057 044 042 degrees QTc Int : 403 ms Sinus tachycardia with occasional Premature ventricular complexes Otherwise normal ECG Confirmed by MAYCOL CARDONA, IVA ([id number]), editor news AKIRA HELM ([id number]) on 10/30/2020 9:17:14 AM Referred By: RADHA Confirmed By:IVA SEVERINO MD
--- NOTE | 2020-10-29 02:36 | ED.DCSUM_ITS ---
HPI History of Present Illness Chief Complaint: Shortness of Breath Narrative Narrative: 65-year-old female with history of lung cancer and COPD presenting with shortness of breath. She wears 4 L of oxygen via nasal cannula at baseline. She states she woke up feeling short of breath. She became so short of breath she fell. She denies head injury or LOC. She denies any pain from her fall. Patient is not on any anticoagulation she states. Patient was noted to be hypoxic on EMS arrival at her baseline O2. She was given breathing treatments in route. She feels improved currently. She does not appear to be any distress. Patient has been on chemotherapy for her lung cancer since May of last year. This was diagnosed in April of last year. She gets chemotherapy every 3 weeks. She has missed the last 6 weeks. She missed 1 appointment due to weather and the second appointment for chemotherapy she could not do because she could not make it for prechemotherapy lab work. [facility] Medical History (Updated 10/29/20 @ 07:[address] Antolin Zurita MD) Healthcare-associated pneumonia Pneumonia Home Medications albuterol sulfate 2 puff INHALATION Q4H PRN PRN 09/17/20 [History Last Taken 09/17/20] amlodipine 5 mg PO DAILY 09/17/20 [History Last Taken 09/16/20] cholecalciferol (vitamin D3) 2,000 unit PO DAILY 09/17/20 [History Last Taken 09/16/20] escitalopram oxalate 10 mg PO DAILY 09/17/20 [History Last Taken 09/16/20] famotidine 20 mg PO QHS 09/17/20 [History Last Taken 09/16/20] folic acid 1 mg PO DAILY@0800 09/17/20 [History Last Taken 09/16/20] gabapentin 300 mg PO TID 09/17/20 [History Last Taken 09/16/20] lorazepam 0.5 mg PO TID 09/17/20 [History Last Taken 09/16/20] magnesium chloride 71.5 mg PO BID 09/17/20 [History Last Taken 09/17/20] potassium chloride 10 meq PO BID 09/17/20 [History Last Taken 09/16/20] pravastatin 20 mg PO DAILY 09/17/20 [History Last Taken 09/16/20] prochlorperazine maleate 10 mg PO Q6H PRN PRN 09/17/20 [History Last Taken 09/16/20] trazodone 100 mg PO QHS 09/17/20 [History Last Taken 09/16/20] Oxygen, Home [Home Oxygen] 2 - 4 lpm NASAL CONT #1 unit 09/21/20 [Rx Last Taken Unknown] meloxicam 7.5 mg PO DAILY 10/11/20 [History Last Taken Unknown] lisinopril 10 mg PO DAILY 10/13/20 [History Last Taken Unknown] Allergy/AdvReac Type Severity Reaction Status Date / Time Iodinated Contrast Media Allergy Shortness Verified 10/29/20 02:22 [CONTRASTS] of breath pseudoephedrine HCl Allergy Shortness Verified 10/29/20 02:22 [From Sudafed] of breath sertraline [From Zoloft] Allergy Shortness Verified 10/29/20 02:22 of breath Surgical History (Updated 10/29/20 @ 06:[address] Antolin Zurita MD) H/O section History of appendectomy Social History Smoking Status: Former smoker ROS ROS ED Constitutional Constitutional ED: Denies chills, fever(s) or sweats Eyes Eyes: Denies blurry vision or change in vision ENT ENT ED: Denies ear pain, rhinorrhea or sore throat Cardiovascular Cardiovascular: Reports racing heartbeat; Denies chest pain or palpitations Respiratory/Chest Respiratory/Chest: Reports dyspnea and dyspnea on exertion; Denies cough or sputum Gastrointestinal Gastrointestinal: Denies abdominal pain, constipation, diarrhea or vomiting Genitourinary Genitourinary ED: Denies dysuria, hematuria or urinary frequency Musculoskeletal Musculoskeletal: Denies arthralgias, myalgias or neck pain Integumentary Denies abscess, Abrasions or rash Neurologic Neurologic: Denies headache(s), paresthesias or weakness Psychiatric Psychiatric: Denies anxiety, depression, suicidal ideation or suicidal thoughts Endocrine Endocrinology: Denies polydipsia or polyuria EXAM Physical Exam Const Vital Signs: 10/29/20 02:22 10/29/20 02:31 10/29/20 02:34 Temperature 98.9 F Temperature Source Temporal Pulse Rate 122 H Respiratory Rate 22 H Respiratory Effort Short of Breath Respiratory Depth Shallow Respiratory Pattern Tachypnea Blood Pressure 109/91 H Blood Pressure Mean 97 Pulse Ox 99 Oxygen Delivery Method Nasal Cannula Nasal Cannula Oxygen Flow Rate (L/min) 4 4 10/29/20 03:42 10/29/20 05:01 10/29/20 06:17 Temperature Temperature Source Pulse Rate 108 H 108 H 118 H Respiratory Rate 19 H 18 27 H Respiratory Effort Respiratory Depth Respiratory Pattern Blood Pressure 127/83 H 112/99 H Blood Pressure Mean 97 103 Pulse Ox 93 94 97 Oxygen Delivery Method Nasal Cannula Room Air Nasal Cannula Oxygen Flow Rate (L/min) 4 3 Positive obese General Appearance ED: NAD Nutritional Appearance: obese HEENT Reports moist mucous membranes atraumatic Eyes PERRL and EOMs intact bilaterally Resp Effort and Inspection: Negative for pain with movement Auscultation: diminished lung sounds; Negative for wheezes Cardio regular rhythm Rate: tachycardic GI non-tender and non-distended Palpation: soft Extremity normal to inspection General Extremety ED: Negative for edema General Extremity: Negative for edema Neuro oriented x3 and CN's II-XII intact bilaterally Sensorium / Orientation: alert Psych mental status grossly normal Thought Process: normal thought process Skin no wounds Lesions: no lesions Rashes: no rashes MDM MDM MDM Narrative Medical decision making narrative: 65-year-old female presenting with shortness of breath and it seems to be improved. She is on her baseline oxygen at 4 L nasal cannula. She reportedly had a breathing treatment in route to the ED. She is denying chest pain. She denies fever, chills, myalgias, change in taste or smell. Patient's EKG interpreted on arrival by myself shows a sinus rhythm with occasional PVC at a rate of 115 bpm without signs of ischemic change. Chest x-ray shows persistent bibasilar infiltrates as interpreted by myself and radiology does agree. Lab work shows no leukocytosis, patient is lymphopenic. Lactic acid is normal. Troponin is negative. UA negative for infection. Given that she was tachycardic, tachypneic and reportedly hypoxic in the field I did do blood cultures and urine cultures. These are pending. Patient did have a slight drop in her blood pressure under 100 systolic at this point she was given a liter of IV fluids. She states that her blood pressure has been running in the 150s this week. Her blood pressure did respond and is currently 112/99. Discussed with hospitalist who recommended obtaining a CTA of the chest which is pending. This will be followed on the medical floor. Patient stable at this time. Impression: 1. History of small cell carcinoma 2. Persistent bibasilar infiltrates 3. COPD exacerbation Lab Data Labs: Laboratory Results - last 24 hr 10/29/20 10/29/20 10/29/20 03:15 03:15 03:15 WBC 5.0 RBC 2.76 L Hgb 9.7 L Hct 31.2 L MCV 113.0 H MCH 35.1 H MCHC 31.1 L RDW Std Deviation 72.7 H RDW Coeff of Amanuel 17.2 H Plt Count 174 MPV 9.7 Immature Gran % (Auto) 0.800 Neut % (Auto) 68.6 Lymph % (Auto) 12.3 L Mcdonald % (Auto) 17.3 H Eos % (Auto) 0.8 Baso % (Auto) 0.2 Absolute Neuts (auto) 3.4 Absolute Lymphs (auto) 0.61 L Nucleated RBC % 0 Differential Comment SCANNED Platelet Estimate ADEQUATE Anisocytosis 1+ Macrocytosis 1+ Sodium 135 L Potassium 4.4 Chloride 98 Carbon Dioxide 33.0 H Anion Gap 4 L BUN 21 H Creatinine 0.75 Estim Creat Clear Calc 45.16 Est GFR (MDRD) Af Amer 99 Est GFR (MDRD) Non-Af 82 BUN/Creatinine Ratio 28.1 H Glucose 115 H Lactic Acid 0.9 Calcium 9.1 Troponin I < 0.015 Urine Color Urine Clarity Urine pH Ur Specific [place] Urine Protein Urine Glucose (UA) Urine Ketones Urine Occult Blood Urine Nitrite Urine Bilirubin Urine Urobilinogen Ur Leukocyte Esterase Urine RBC Urine WBC Ur Squamous Epith Cells Urine Bacteria Urine Mucus 10/29/20 04:50 WBC RBC Hgb Hct MCV MCH MCHC RDW Std Deviation RDW Coeff of Amanuel Plt Count MPV Immature Gran % (Auto) Neut % (Auto) Lymph % (Auto) Mcdonald % (Auto) Eos % (Auto) Baso % (Auto) Absolute Neuts (auto) Absolute Lymphs (auto) Nucleated RBC % Differential Comment Platelet Estimate Anisocytosis Macrocytosis Sodium Potassium Chloride Carbon Dioxide Anion Gap BUN Creatinine Estim Creat Clear Calc Est GFR (MDRD) Af Amer Est GFR (MDRD) Non-Af BUN/Creatinine Ratio Glucose Lactic Acid Calcium Troponin I Urine Color Yellow Urine Clarity Sl. Cloudy Urine pH 6.0 Ur Specific [place] 1.015 Urine Protein Negative Urine Glucose (UA) Normal Urine Ketones Negative Urine Occult Blood 10 H Urine Nitrite Negative Urine Bilirubin Negative Urine Urobilinogen Normal Ur Leukocyte Esterase Negative Urine RBC 0-5 SEEN Urine WBC 0 SEEN Ur Squamous Epith Cells 0 SEEN Urine Bacteria 0 SEEN Urine Mucus 0 SEEN Radiography Diagnostic Testing: Radiology Impression Chest X-Ray 10/29/20 02:43 IMPRESSION: Persistent bilateral basilar infiltration and/or atelectasis, with no significant change from recent previous exam. Port-A-Cath in place. Electronically Signed: Kameron Benitez MD at 3:55 EDT , Service support , Discharge Plan Disposition Patient Disposition: Acute Care Hospital [facility]
--- NOTE | 2020-10-29 02:43 | RAD_ITS ---
STUDY: X-RAY CHEST REASON FOR EXAM: Female, 65 years old. chest pain TECHNIQUE: Single AP portable view of the chest. COMPARISON: 10/11/2020. 09/17/2020. FINDINGS: There is a right internal jugular Port-A-Cath with its tip overlying the superior vena cava. There is interstitial prominence in the lower lung aranda bilaterally, right greater than left. When compared with the September exam there is interval improvement on the left. Otherwise, there is no significant change.. There is no demonstrated pleural abnormality. Normal size heart. Normal mediastinum and danny. There is atherosclerotic calcification of the aortic arch. There are no demonstrated acute fractures or destructive bone lesions. There is no demonstrated abnormality of the visualized soft tissue structures of the upper abdomen. RAD/Chest 1 View (Portable) IMPRESSION: Persistent bilateral basilar infiltration and/or atelectasis, with no significant change from recent previous exam. Port-A-Cath in place. Electronically Signed: Kameron Benitez MD at 3:55 EDT , Service support ,
[2020-10-29 03:25] LABS: Absolute Lymphocyte Count 0.61 X10^3/uL (0.83-4.51); Absolute Neutrophil Count 3.4 X10^3/uL (2.0-7.7); Basophil# 0.01 X10^3/uL; Basophil% 0.2 % (0-1); Eosinophil# 0.04 X10^3/uL; Eosinophils% 0.8 % (0-5); Hematocrit 31.2 % (37-47); Hemoglobin 9.7 g/dL (12.0-15.0); Lymphocyte # 0.61 X10^3/ul (0.83-4.51); Lymphocyte % 12.3 % (19-41); Mean Corp Hgb Conc 31.1 g/dL (32-36); Mean Corpuscular Hgb 35.1 pg (27.0-32.0); Mean Platelet Vol. 9.7 fl (6.2-12.0); Monocyte# 0.86 X10^3/uL; Monocyte% 17.3 % (0-10); NRBC Flagged by Analyzer 0 % (0-5); Neutrophil # 3.41 X10^3/uL (2.7-7.7); Neutrophil % 68.6 % (47-70); POSITIVE MORPHOLOGY YES; Platelet Count 174 K/mm3 (150-450); RBC Distribution Width CV 17.2 % (11.6-14.6); RBC Distribution Width SD 72.7 fl (35.1-43.9); Red Blood Count 2.76 M/mm3 (4.2-5.4)
[2020-10-29 03:26] LABS: Differential Indicated SCAN CRITERIA MET
[2020-10-29 03:42] LABS: Anion Gap 4 (5-15); BUN 21 mg/dL (7-18); BUN/Creat Ratio 28.1 RATIO (10-20); Calcium,Total 9.1 mg/dL (8.5-10.1); Chloride 98 mmol/L (98-107); Creatinine, Serum 0.75 mg/dL (0.55-1.02); Differential Comment SCANNED; EST Glomerular Filtration Rate 82 mL/min (>60); Est Glom Filt Rate - Afr Amer 99 mL/min (>60); Estimated Creatinine Clearance 45.16 ml/min; Glucose 115 mg/dL (74-106); Potassium 4.4 mmol/L (3.5-5.1); Sodium Level 135 mmol/L (136-145)
[2020-10-29 03:43] LABS: Anisocytosis 1+; Macrocytosis 1+
[2020-10-29 03:44] LABS: Platelet Estimate ADEQUATE (ADEQ)
[2020-10-29 03:51] LABS: Lactic Acid 0.9 mmol/L (0.4-1.9)
[2020-10-29] MEDS: 0.9% Normal Saline 1,000 ML 999 ML IV (04:57)
[2020-10-29 04:59] LABS: Bacteria 0 SEEN /hpf (None Seen); Color, Urine Yellow (Yellow); Glucose, Dipstick Normal (Normal); Ketone-Dipstick Negative (Negative); Leukocyte Esterase-Dipstick Negative /ul (Negative); Mucous, Urine 0 SEEN /hpf (<or=2+); Nitrite-Dipstick Negative (Negative); Occult Blood-Urine 10 /ul (Negative); Protein-Dipstick Negative (Negative); Specific Gravity, Urine 1.015 (1.002-1.030); Squamous Epithelial Cells - UA 0 SEEN /hpf (5-10); Urine Bilirubin Dipstick Negative (Negative); Urine Clarity Sl. Cloudy (Clear); Urine Urobilinogen Normal (Normal); White Blood Cells 0 SEEN /hpf (0-5)
[2020-10-29 05:05] LABS: Red Blood Cells-Urine 0-5 SEEN /hpf (0-5)
[2020-10-29] MEDS: MethylPREDNISolone 125 MG/2 ML Vial IV (05:34)
[2020-10-29] MEDS: DiphenhydrAMINE 50 MG/ML Syringe 25 MG IV (05:34)
--- NOTE | 2020-10-29 05:42 | CT_ITS ---
STUDY: CTA CHEST REASON FOR EXAM: Female, 65 years old. dyspnea RADIATION DOSAGE (If Supplied By Facility): CTDIvol = ( 11.42 ) mGy, DLP = ( 498.96 ) mGycm TECHNIQUE: The examination was performed with the intravenous administration of IV 100mL Isovue-370. Post-processing of the angiographic images was performed, with multiplanar reformation, but without 3D reconstruction. Individualized dose optimization techniques were used for this CT. COMPARISON: Chest x-ray 10/29/2020. CTA chest 09/17/2020. FINDINGS: There is a right internal jugular Port-A-Cath with its tip in the SVC-right atrial junction. Normal enhancement of the main pulmonary artery and right and left pulmonary arteries. Normal enhancement of the bilateral peripheral pulmonary arteries. There is no demonstrated pulmonary embolism. Sensitivity for small pulmonary emboli is limited by respiratory motion artifacts. There are atherosclerotic calcifications of the thoracic aorta and visualized great vessels. There is no demonstrated aortic dissection. Normal heart and pericardium. There are coronary artery calcifications. Normal mediastinum. Normal hilar regions. Normal visualized trachea and bronchi. The lungs are well expanded. There are emphysematous and fibrotic changes in the lungs. There is marked interval improvement of a previously demonstrated left lower lobe infiltrate. As seen on series 2, axial images 86-90, there is a 1.5 x 1.1 cm nodular density in the left lower lobe (average diameter 1.3 cm). This was present on previous exam but obscured by surrounding infiltrates. As seen on axial images 64-77, there is a 1.3 x 0.6 cm pleural-based nodular density in the right lower lobe (average diameter 9 mm). As seen on axial images 110-114, there is a 1.0 cm nodular density in the right upper lobe contiguous with the horizontal fissure and there is a 1.6 x 1.0 cm nodular density in the right middle lobe (average diameter 1.3 cm), contiguous with the oblique and horizontal fissures. Normal pleura. Normal chest wall structures. There are degenerative changes of thoracic spine. There is a moderate hiatal hernia. CT/CTA Chest W/WO Contrast IMPRESSION: Normal CTA chest examination, without a demonstrated pulmonary embolism, aortic aneurysm, or aortic dissection. Sensitivity for small pulmonary emboli is limited by respiratory motion artifacts. Fibrotic and emphysematous changes in the lungs. Resolution of previously demonstrated left lower lobe infiltrate. Multiple pulmonary nodules, as above, with average diameters ranging up to 1.[address] PET scan or tissue sampling for further evaluation. Atherosclerosis. Moderate hiatal hernia. Electronically Signed: Kameron Benitez MD at 7:55 EDT , Service support ,
--- NOTE | 2020-10-29 06:44 | HP.PCM.HOS_ITS ---
HPI - General HPI Narrative ELISE QUINONEZ, is a 65 F with a significant history of small cell lung cancer; COPD; anxiety and depression; and hypertension who presented to the emergency department with fall. The patient is unable to tell why she fell. She denies dizziness before or after the fall. Reportedly paramedics said that while patient was on her baseline oxygen of 4 L her oxygen saturation was 78%. However at the emergency department on her baseline oxygen oxygen saturation was in the 90s. Her son reported patient has been confused. Reportedly patient was at the hospital recently and was treated for pneumonia. Patient reports shortness of breath but this is chronic. She reports a chronic wheezes. She denies coughing. [facility] Medical History (Updated 10/29/20 @ 07:[address] Antolin Zurita MD) Healthcare-associated pneumonia Pneumonia Home Medications albuterol sulfate 2 puff INHALATION Q4H PRN PRN 09/17/20 [History Last Taken 09/17/20] amlodipine 5 mg PO DAILY 09/17/20 [History Last Taken 09/16/20] cholecalciferol (vitamin D3) 2,000 unit PO DAILY 09/17/20 [History Last Taken 09/16/20] escitalopram oxalate 10 mg PO DAILY 09/17/20 [History Last Taken 09/16/20] famotidine 20 mg PO QHS 09/17/20 [History Last Taken 09/16/20] folic acid 1 mg PO DAILY@0800 09/17/20 [History Last Taken 09/16/20] gabapentin 300 mg PO TID 09/17/20 [History Last Taken 09/16/20] lorazepam 0.5 mg PO TID 09/17/20 [History Last Taken 09/16/20] magnesium chloride 71.5 mg PO BID 09/17/20 [History Last Taken 09/17/20] potassium chloride 10 meq PO BID 09/17/20 [History Last Taken 09/16/20] pravastatin 20 mg PO DAILY 09/17/20 [History Last Taken 09/16/20] prochlorperazine maleate 10 mg PO Q6H PRN PRN 09/17/20 [History Last Taken 09/16/20] trazodone 100 mg PO QHS 09/17/20 [History Last Taken 09/16/20] Oxygen, Home [Home Oxygen] 2 - 4 lpm NASAL CONT #1 unit 09/21/20 [Rx Last Taken Unknown] meloxicam 7.5 mg PO DAILY 10/11/20 [History Last Taken Unknown] lisinopril 10 mg PO DAILY 10/13/20 [History Last Taken Unknown] Allergy/AdvReac Type Severity Reaction Status Date / Time Iodinated Contrast Media Allergy Shortness Verified 10/29/20 02:22 [CONTRASTS] of breath pseudoephedrine HCl Allergy Shortness Verified 10/29/20 02:22 [From Sudafed] of breath sertraline [From Zoloft] Allergy Shortness Verified 10/29/20 02:22 of breath Surgical History (Updated 10/29/20 @ 06:[address] Antolin Zurita MD) H/O section History of appendectomy Social History Smoking Status: Former smoker ROS Constitutional Constitutional: Denies change in weight, chills or fever(s) ENT HEENT: Denies headache(s), nasal congestion or nasal discharge Cardiovascular Cardiovascular: Denies chest pain or palpitations Respiratory/Chest Respiratory/Chest: Reports shortness of breath at rest and wheezing; Denies cough or excessive phlegm production Gastrointestinal Gastrointestinal: Denies abdominal pain, nausea or vomiting Genitourinary Genitourinary: Denies dysuria Musculoskeletal Musculoskeletal: Denies joint pain, joint stiffness or joint swelling Neurologic Neurologic: Reports confusion; Denies focal weakness, numbness or tingling Psychiatric Psychiatric: Denies anxiety, depression, homicidal ideation or suicidal ideation Hematologic/Lymphatic Hematologic/Lymphatic: Denies easy bleeding or easy bruising Vital Signs Vital Signs Vital Signs: 10/29/20 02:22 10/29/20 02:31 10/29/20 02:34 Temperature 98.9 F Temperature Source Temporal Pulse Rate 122 H Respiratory Rate 22 H Respiratory Effort Short of Breath Respiratory Depth Shallow Respiratory Pattern Tachypnea Blood Pressure 109/91 H Blood Pressure Mean 97 Pulse Ox 99 Oxygen Delivery Method Nasal Cannula Nasal Cannula Oxygen Flow Rate (L/min) 4 4 10/29/20 03:42 10/29/20 05:01 10/29/20 06:17 Temperature Temperature Source Pulse Rate 108 H 108 H 118 H Respiratory Rate 19 H 18 27 H Respiratory Effort Respiratory Depth Respiratory Pattern Blood Pressure 127/83 H 112/99 H Blood Pressure Mean 97 103 Pulse Ox 93 94 97 Oxygen Delivery Method Nasal Cannula Room Air Nasal Cannula Oxygen Flow Rate (L/min) 4 3 Physical Exam Const alert Constitutional Narrative: Patient knew the year but not the month. She knew that she was in hospital in [place] but could not state a full name of the hospital. Orientation / Consciousness: confused HEENT normocephalic and head/scalp atraumatic Eyes PERRL and EOMs intact bilaterally Neck supple Resp normal respiratory effort Auscultation: wheezes Cardio regular rhythm, S1 normal heart sound and S2 normal heart sound Peripheral Pulses: pulses 2+ throughout GI normal to inspection, nondistended, normoactive bowel sounds Extremity normal to inspection Peripheral Pulses: Yes pulses 2+ throughout Skin no rashes or lesions noted Neuro Sensorium / Orientation: awake and alert Lab / Micro Data Result Diagrams: 10/29/20 03:15 10/29/20 03:15 Labs: Laboratory Results - last 24 hr 10/29/20 10/29/20 10/29/20 03:15 03:15 03:15 WBC 5.0 RBC 2.76 L Hgb 9.7 L Hct 31.2 L MCV 113.0 H MCH 35.1 H MCHC 31.1 L RDW Std Deviation 72.7 H RDW Coeff of Amanuel 17.2 H Plt Count 174 MPV 9.7 Immature Gran % (Auto) 0.800 Neut % (Auto) 68.6 Lymph % (Auto) 12.3 L [place] % (Auto) 17.3 H Eos % (Auto) 0.8 Baso % (Auto) 0.2 Absolute Neuts (auto) 3.4 Absolute Lymphs (auto) 0.61 L Nucleated RBC % 0 Differential Comment SCANNED Platelet Estimate ADEQUATE Anisocytosis 1+ Macrocytosis 1+ Sodium 135 L Potassium 4.4 Chloride 98 Carbon Dioxide 33.0 H Anion Gap 4 L BUN 21 H Creatinine 0.75 Estim Creat Clear Calc 45.16 Est GFR (MDRD) Af Amer 99 Est GFR (MDRD) Non-Af 82 BUN/Creatinine Ratio 28.1 H Glucose 115 H Lactic Acid 0.9 Calcium 9.1 Troponin I < 0.015 Urine Color Urine Clarity Urine pH Ur Specific [place] Urine Protein Urine Glucose (UA) Urine Ketones Urine Occult Blood Urine Nitrite Urine Bilirubin Urine Urobilinogen Ur Leukocyte Esterase Urine RBC Urine WBC Ur Squamous Epith Cells Urine Bacteria Urine Mucus 10/29/20 04:50 WBC RBC Hgb Hct MCV MCH MCHC RDW Std Deviation RDW Coeff of Amanuel Plt Count MPV Immature Gran % (Auto) Neut % (Auto) Lymph % (Auto) [place] % (Auto) Eos % (Auto) Baso % (Auto) Absolute Neuts (auto) Absolute Lymphs (auto) Nucleated RBC % Differential Comment Platelet Estimate Anisocytosis Macrocytosis Sodium Potassium Chloride Carbon Dioxide Anion Gap BUN Creatinine Estim Creat Clear Calc Est GFR (MDRD) Af Amer Est GFR (MDRD) Non-Af BUN/Creatinine Ratio Glucose Lactic Acid Calcium Troponin I Urine Color Yellow Urine Clarity Sl. Cloudy Urine pH 6.0 Ur Specific [place] 1.015 Urine Protein Negative Urine Glucose (UA) Normal Urine Ketones Negative Urine Occult Blood 10 H Urine Nitrite Negative Urine Bilirubin Negative Urine Urobilinogen Normal Ur Leukocyte Esterase Negative Urine RBC 0-5 SEEN Urine WBC 0 SEEN Ur Squamous Epith Cells 0 SEEN Urine Bacteria 0 SEEN Urine Mucus 0 SEEN Micro: Microbiology 10/29/20 05:20 SARS-CoV-2 Antigen (Rapid) - Final Nasal Secretion Radiology Impression Chest X-Ray 10/29/20 02:43 IMPRESSION: Persistent bilateral basilar infiltration and/or atelectasis, with no significant change from recent previous exam. Port-A-Cath in place. Electronically Signed: Kameron Benitez MD at 3:55 EDT , Service support , Assessment & Plan Assessment/Plan (1) Acute metabolic encephalopathy: Status: Acute Code(s): G93.41 - Metabolic encephalopathy Plan: Hold home gabapentin. On home Ativan 3 times daily. Change home Ativan 3 times daily to nightly since she reports insomnia. Something that insomnia may be contributing to encephalopathy. Trazodone continued. Check TSH and ammonia. CMP ordered. (2) Fall: Status: Acute Code(s): W19.XXXA - Unspecified fall, initial encounter Qualifiers: Encounter type: initial encounter Qualified Code(s): W19.XXXA - Unspecified fall, initial encounter Plan: PT and OT to work with patient. Vitamin D continued. Check vitamin D level. Check vitamin B12 level. (3) Pancytopenia: Status: Acute Code(s): D61.818 - Other pancytopenia Plan: Likely secondary to cancer/chemotherapy. (4) Dyspnea: Status: Chronic Code(s): R06.00 - Dyspnea, unspecified Qualifiers: Dyspnea type: shortness of breath Qualified Code(s): R06.02 - Shortness of breath Plan: Chronic. Chest x-ray shows chronic infiltrates. Chest CTA ordered emergency department; follow OBSV E&M: [id number] Initial observation care L3
--- NOTE | 2020-10-29 07:47 | NURSING ---
PCU DR KURT NOLASCO, COPD EXAC, HYPOXIA
--- NOTE | 2020-10-29 08:07 | ED.RN ---
Pt helped up to bedside commode. Pt dropped to 82% on 4 L of o2. pt helped back to bed and pt took o2 off. pt dropped to 72%.
--- NOTE | 2020-10-29 10:05 | CASEMGMT ---
Patient has a Healthcare Power of Sawmilling Operator on file at [facility]. She also has a Healthcare Living Will, but this is not on file and patient is aware. Her son Hi is her Healthcare Power of Sawmilling Operator. Arcelia YOUNGBLOOD
[2020-10-29] MEDS: Ipratropium/Albuterol Sulfate 3 ML AMPUL.NEB INHALATION ×4 (10:30→22:25)
[2020-10-29 11:09] LABS: Ammonia < 10.0 umol/L (11-32)
[2020-10-29 11:26] LABS: Vitamin B12 445 pg/mL (211-911)
[2020-10-29] MEDS: Folic Acid 1 MG Tablet PO (11:27)
[2020-10-29] MEDS: Potassium Chloride Oral Tablet 10 MEQ PO ×2 (11:28→16:29)
[2020-10-29] MEDS: Meloxicam 7.5 MG Tablet PO (11:28)
[2020-10-29] MEDS: Enoxaparin 40 MG/0.4 ML Syringe SC (11:28)
[2020-10-29] MEDS: amLODIPine 5 MG Tablet PO (11:28)
[2020-10-29] MEDS: Escitalopram Oxalate 10 MG Tablet PO (11:28)
[2020-10-29] MEDS: Magnesium Chloride 64 MG Delay Rel.Tablet PO ×2 (11:28→21:55)
[2020-10-29] MEDS: Cholecalciferol (VIT D3) 25 MCG TABLET (1,000 UNITS) 50 MCG PO (11:29)
[2020-10-29] MEDS: Lisinopril 10 MG Tablet PO (11:29)
--- NOTE | 2020-10-29 13:16 | CHAPLAIN ---
Type of Pastoral Visit _x__ Initial Visit ___ Follow-up Visit ___ On-call Visit ___ General Patient Visit ___ Spiritual Assessment ___ Family Conference ___ Bereavement ___ Rapid Response ___ Code Blue ___ Other (describe below) Pastoral Care Referral From _x__ Patient ___ Family ___ Nurse ___ Physician ___ Baggage And Mail Agent ___ Orthopedically Impaired Teacher ___ Other (describe below) Sacrament/Intervention _x__ Active listening ___ Anointing ___ Orthodoxy ___ Bereavement ___ Communion ___ Angie exploration ___ ___ Life review _x__ Prayer ___ Reconciliation ___ Sacrament of Sick _x__ Supportive presence ___ Wedding ___ Other (describe below) Pastoral Comments patient requests another visit tomorrow from this agricultural education teacher
[2020-10-29 18:35] LABS: Base Excess 3 mmol/L (-2 to +2); Bicarbonate 27.6 mmol/L (22-26); Blood Gas Specimen Type ART; O2 Delivery Device Cannula; PO2 71 mmHG (75-100); SITE L Brach; SO2 94 % (95-99); Total Carbon Dioxide 29 mmol/L; pCO2 45.9 mmHg (35-45); pH 7.39 (7.35-7.45)
[2020-10-29] MEDS: LORazepam 0.5 MG Tablet PO (21:54)
[2020-10-29] MEDS: traZODone 100 MG Tablet PO (21:55)
[2020-10-29] MEDS: Famotidine 20 MG Tablet PO (21:56)
[2020-10-29] MEDS: Pravastatin 20 MG Tablet PO (21:56)
[2020-10-30] VITALS (8 sets, daily range): BP systolic 94–137; BP diastolic 50–77; PULSE 94–109; RESP 16–21; TEMP 36.5–36.9; O2SAT 95–98
[2020-10-30] MEDS: Acetaminophen 325 MG Tablet 650 MG PO (04:02)
[2020-10-30 06:00] LABS: Absolute Lymphocyte Count 0.34 X10^3/uL (0.83-4.51); Absolute Neutrophil Count 3.3 X10^3/uL (2.0-7.7); Hematocrit 27.6 % (37-47); Hemoglobin 8.5 g/dL (12.0-15.0); Lymphocyte # 0.34 X10^3/ul (0.83-4.51); Lymphocyte % 8.3 % (19-41); Mean Corp Hgb Conc 30.8 g/dL (32-36); Mean Corpuscular Hgb 34.4 pg (27.0-32.0); Mean Corpuscular Volume 111.7 fL (81-99); Monocyte# 0.39 X10^3/uL; Monocyte% 9.5 % (0-10); NRBC Flagged by Analyzer 0 % (0-5); Neutrophil # 3.34 X10^3/uL (2.7-7.7); Neutrophil % 81.5 % (47-70); POSITIVE DIFFERENTIAL YES; POSITIVE MORPHOLOGY YES; Platelet Count 166 K/mm3 (150-450); RBC Distribution Width CV 16.4 % (11.6-14.6); RBC Distribution Width SD 68.5 fl (35.1-43.9); Red Blood Count 2.47 M/mm3 (4.2-5.4); White Blood Count 4.1 K/mm3 (4.4-11.0)
[2020-10-30 06:01] LABS: Differential Indicated SCAN CRITERIA MET
[2020-10-30 06:26] LABS: Differential Comment SCANNED
[2020-10-30 06:27] LABS: ALB/GLOB Ratio 0.7 RATIO (0.9-2.4); AST(SGOT) 15 U/L (15-37); Alanine Aminotransfer ALT/SGPT 17 U/L (13-56); Albumin, Serum 2.5 g/dL (3.2-5.0); Alkaline Phosphatase 41 U/L (45-117); Anion Gap 4 (5-15); Anisocytosis 1+; BUN 17 mg/dL (7-18); Calcium,Total 8.7 mg/dL (8.5-10.1); Chloride 102 mmol/L (98-107); Creatinine, Serum 0.85 mg/dL (0.55-1.02); EST Glomerular Filtration Rate 71 mL/min (>60); Est Glom Filt Rate - Afr Amer 85 mL/min (>60); Estimated Creatinine Clearance 53.13 ml/min; Globulin 3.6 g/dL (2.2-4.2); Glucose 184 mg/dL (74-106); Macrocytosis 1+; Microcytosis RARE; Potassium 4.1 mmol/L (3.5-5.1); Protein, Total 6.1 g/dL (6.4-8.2); Sodium Level 135 mmol/L (136-145)
[2020-10-30] MEDS: Ipratropium/Albuterol Sulfate 3 ML AMPUL.NEB INHALATION ×3 (07:07→14:56)
[2020-10-30] MEDS: Enoxaparin 40 MG/0.4 ML Syringe SC (08:50)
[2020-10-30] MEDS: Folic Acid 1 MG Tablet PO (08:50)
[2020-10-30] MEDS: Escitalopram Oxalate 10 MG Tablet PO (08:50)
[2020-10-30] MEDS: Cholecalciferol (VIT D3) 25 MCG TABLET (1,000 UNITS) 50 MCG PO (08:50)
[2020-10-30] MEDS: Potassium Chloride Oral Tablet 10 MEQ PO (08:50)
[2020-10-30] MEDS: Magnesium Chloride 64 MG Delay Rel.Tablet PO (08:51)
[2020-10-30] MEDS: Lisinopril 10 MG Tablet PO (08:51)
[2020-10-30] MEDS: Meloxicam 7.5 MG Tablet PO (08:51)
[2020-10-30] MEDS: amLODIPine 5 MG Tablet PO (08:51)
[2020-10-30 12:48] LABS: Pathologist Review Reviewed
--- NOTE | 2020-10-30 13:11 | CASEMGMT ---
ZAY CM in to discuss [place] form with patient. RN CM explained [place] form, patient voiced understanding. Pt signed form and filed in chart. Pt provided with a copy of signed [place] form. Patient had no further questions or concerns at this time.
--- NOTE | 2020-10-30 14:25 | PCM.DC ---
Discharge Instructions Outpatient Procedure Reason For Visit: ACUTE ENCEPHALOPATHY Diet Discharge Diet: No restrictions Activity Discharge Activity: Return to Normal Activity Dressing / Incision Call your doctor if you observe: Fever of 101 or Higher, Shortness of breath, Dizziness, Fainting spells, Swelling in the ankles, Chest pain and Increased palpitations (irregular heartbeat) Follow Up Care Test Results: Test results from this visit will be discussed in further detail at your follow-up appointment, if applicable. Discharge Plan Admission Admit Date/Time: 10/29/20 06:43 Attending Provider: Swapnil Zamora Primary Care Provider: Jose Tafoya Instructions Patient Instructions: ED ALOC, ED Confusion Discharge Orders/Prescriptions Prescriptions: Continued trazodone 50 MG tablet 100 mg PO QHS RF: 0 folic acid 1 MG tablet 1 mg PO DAILY@0800 RF: 0 pravastatin 20 MG tablet 20 mg PO DAILY RF: 0 cholecalciferol (vitamin D3) 2,000 UNIT capsule 2,000 unit PO DAILY RF: 0 amlodipine 5 MG tablet 5 mg PO DAILY RF: 0 prochlorperazine maleate 10 MG tablet 10 mg PO Q6H PRN PRN (Reason: Nausea) RF: 0 lorazepam 0.5 MG tablet 0.5 mg PO TID RF: 0 gabapentin 300 MG capsule 300 mg PO TID RF: 0 escitalopram oxalate 20 MG tablet 10 mg PO DAILY RF: 0 potassium chloride 10 MEQ tablet,ER particles/crystals 10 meq PO BID RF: 0 magnesium chloride 71.5 MG tablet,delayed release (DR/EC) 71.5 mg PO BID RF: 0 albuterol sulfate 1 INHALER inhaler 2 puff INHALATION Q4H PRN PRN (Reason: Wheezing) RF: 0 Oxygen, Home [Home Oxygen] 2 - 4 lpm NASAL CONT Qty: 1 RF: 0 meloxicam 7.5 MG tablet 7.5 mg PO DAILY RF: 0 lisinopril 10 MG tablet 10 mg PO DAILY RF: 0 No Action famotidine 20 MG tablet 20 mg PO QHS RF: 0 Referrals: Jose Tafoya DO [Primary Care Provider] - In 1 Week Antony Maldonado MD [STAFF PHYSICIAN] - Within 2 Weeks Disposition Patient Disposition: Home, self care
--- NOTE | 2020-10-30 14:28 | DS.PCM_ITS ---
Providers Date of Admission: 10/29/20 Primary Care Physician: Dr. Jose Tafoya, Reason For Visit: ACUTE ENCEPHALOPATHY Diagnosis Discharge Diagnosis (1) Acute metabolic encephalopathy: Status: Ruled-out Code(s): G93.41 - Metabolic encephalopathy (2) Fall: Status: Acute Code(s): W19.XXXA - Unspecified fall, initial encounter Qualifiers: Encounter type: initial encounter Qualified Code(s): W19.XXXA - Unspecified fall, initial encounter (3) Pancytopenia: Status: Chronic Code(s): D61.818 - Other pancytopenia (4) Toxic encephalopathy: Status: Resolved Code(s): G92 - Toxic encephalopathy (5) COPD (chronic obstructive pulmonary disease): Status: Chronic Code(s): J44.9 - Chronic obstructive pulmonary disease, unspecified Medications at Discharge Home Medications albuterol sulfate 2 puff INHALATION Q4H PRN PRN 09/17/20 amlodipine 5 mg PO DAILY 09/17/20 cholecalciferol (vitamin D3) 2,000 unit PO DAILY 09/17/20 escitalopram oxalate 10 mg PO DAILY 09/17/20 famotidine 20 mg PO QHS 09/17/20 folic acid 1 mg PO DAILY@0800 09/17/20 gabapentin 300 mg PO TID 09/17/20 lorazepam 0.5 mg PO TID 09/17/20 magnesium chloride 71.5 mg PO BID 09/17/20 potassium chloride 10 meq PO BID 09/17/20 pravastatin 20 mg PO DAILY 09/17/20 prochlorperazine maleate 10 mg PO Q6H PRN PRN 09/17/20 trazodone 100 mg PO QHS 09/17/20 Oxygen, Home [Home Oxygen] 2 - 4 lpm NASAL CONT #1 unit 09/21/20 meloxicam 7.5 mg PO DAILY 10/11/20 lisinopril 10 mg PO DAILY 10/13/20 Hospital Course Operations None Procedures None Summary of Care Provided Minutes Spent on Discharge: 35 Hospital Course: Per HPI: ELISE QUINONEZ, is a 65 F with a significant history of small cell lung cancer; COPD; anxiety and depression; and hypertension who presented to the emergency department with fall. The patient is unable to tell why she fell. She denies dizziness before or after the fall. Reportedly paramedics said that while patient was on her baseline oxygen of 4 L her oxygen saturation was 78%. However at the emergency department on her baseline oxygen oxygen saturation was in the 90s. Her son reported patient has been confused. Reportedly patient was at the hospital recently and was treated for pneumonia. Patient reports shortness of breath but this is chronic. She reports a chronic wheezes. She denies coughing. Hospital Course: 1. Acute toxic encephalopathy/[id number] female with a history of a small cell lung cancer that is stage IV who is on chronic oxygen, presents to the hospital after a fall and altered mental status. Per the son today she is b asically back to her baseline she knows where she is and what year it is, he states that it looks like he had taken a couple days worth of medications though he is not sure exactly which ones she took. She does have Ativan as well as trazodone at home so taking extra of these medications could well of led to her toxic encephalopathy. I did propose getting a CT scan of her brain given her cancer history however he states that 2 weeks ago she had a brain MRI at the [facility] which was negative for any metastatic disease at that time. I discussed with him and his mother about the plan for discharge today and he expressed understanding of this and benefits and would like to take her home today. 2. COPD, hypertension, hyperlipidemia, stage IV small cell lung cancer her chronic medical conditions which complicate her care. Her home medications were continued where appropriate Physical Exam Const alert, oriented x3 and no apparent distress HEENT normocephalic and moist oral mucous membranes Eyes PERRL, EOMs intact bilaterally and conjunctivae normal Neck no lymphadenopathy, supple and no JVD Resp normal respiratory effort and clear to auscultation bilaterally Auscultation: diminished lung sounds; Negative for crackles, rales, rhonchi or w heezes Cardio regular rate, regular rhythm, S1 normal heart sound, S2 normal heart sound and no murmurs GI soft to palpation, non-tender and non-distended; Negative for hepatosplenomegaly Extremity no clubbing, cyanosis or edema Skin no rashes or lesions noted Neuro no focal motor deficits and no sensory deficits noted Psych affect normal ABG / Lab / Microbiology Data Result Diagrams: 10/30/20 05:20 10/30/20 05:20 Laboratory: Laboratory Results - last 24 hr 10/30/20 10/30/20 05:20 05:20 WBC 4.1 L RBC 2.47 L Hgb 8.5 L Hct 27.6 L MCV 111.7 H MCH 34.4 H MCHC 30.8 L RDW Std Deviation 68.5 H RDW Coeff of Amanuel 16.4 H Plt Count 166 MPV 10.0 Immature Gran % (Auto) 0.700 Neut % (Auto) 81.5 H Lymph % (Auto) 8.3 L [place] % (Auto) 9.5 Eos % (Auto) 0.0 Baso % (Auto) 0.0 Absolute Neuts (auto) 3.3 Absolute Lymphs (auto) 0.34 L Nucleated RBC % 0 Differential Comment SCANNED Diff Path Review Reviewed Anisocytosis 1+ Microcytosis RARE Macrocytosis 1+ Sodium 135 L Potassium 4.1 Chloride 102 Carbon Dioxide 29.0 Anion Gap 4 L BUN 17 Creatinine 0.85 Estim Creat Clear Calc 53.13 Est GFR (MDRD) Af Amer 85 Est GFR (MDRD) Non-Af 71 BUN/Creatinine Ratio 20.0 Glucose 184 H Calcium 8.7 Total Bilirubin 0.30 AST 15 ALT 17 Alkaline Phosphatase 41 L Total Protein 6.1 L Albumin 2.5 L Globulin 3.6 Albumin/Globulin Ratio 0.7 L Microbiology: Microbiology 10/29/20 04:50 Urine Culture - Preliminary Urine, Clean Catch Mixed Gram Pos & Gram Neg Org Microbiology 10/29/20 04:50 Urine, Clean Catch Urine Culture - Preliminary Mixed Gram Pos & Gram Neg Org 10/29/20 05:20 Nasal Secretion SARS-CoV-2 Antigen (Rapid) - Final ABG: ABG 10/29/20 18:28 Specimen Type ART Sample Site L Brach pH 7.39 Bicarbonate Actual 27.6 H Total CO2 29 Base Excess 3 H O2 Saturation 94 L ABG pCO2 45.9 H ABG pO2 71 L O2 Delivery Device Cannula Liter Flow 4.0 D/C Instructions Discharge Diet: No restrictions Discharge Activity: Return to Normal Activity Call your doctor if you observe: Fever of 101 or Higher, Shortness of breath, Dizziness, Fainting spells, Swelling in the ankles, Chest pain and Increased palpitations (irregular heartbeat) Meaningful Use Info Meaningful Use Diagnoses (Choose all that apply): None applicable Discharge Plan Admission Admit Date/Time: 10/29/20 06:43 Attending Provider: Swapnil Zamora Primary Care Provider: Jose Tafoya Instructions Patient Instructions: ED ALOC, ED Confusion Discharge Orders/Prescriptions Prescriptions: Continued trazodone 50 MG tablet 100 mg PO QHS RF: 0 famotidine 20 MG tablet 20 mg PO QHS RF: 0 folic acid 1 MG tablet 1 mg PO DAILY@0800 RF: 0 pravastatin 20 MG tablet 20 mg PO DAILY RF: 0 cholecalciferol (vitamin D3) 2,000 UNIT capsule 2,000 unit PO DAILY RF: 0 amlodipine 5 MG tablet 5 mg PO DAILY RF: 0 prochlorperazine maleate 10 MG tablet 10 mg PO Q6H PRN PRN (Reason: Nausea) RF: 0 lorazepam 0.5 MG tablet 0.5 mg PO TID RF: 0 gabapentin 300 MG capsule 300 mg PO TID RF: 0 escitalopram oxalate 20 MG tablet 10 mg PO DAILY RF: 0 potassium chloride 10 MEQ tablet,ER particles/crystals 10 meq PO BID RF: 0 magnesium chloride 71.5 MG tablet,delayed release (DR/EC) 71.5 mg PO BID RF: 0 albuterol sulfate 1 INHALER inhaler 2 puff INHALATION Q4H PRN PRN (Reason: Wheezing) RF: 0 Oxygen, Home [Home Oxygen] 2 - 4 lpm NASAL CONT Qty: 1 RF: 0 meloxicam 7.5 MG tablet 7.5 mg PO DAILY RF: 0 lisinopril 10 MG tablet 10 mg PO DAILY RF: 0 Referrals: Jose Tafoya DO [Primary Care Provider] - In 1 Week Antony Maldonado MD [STAFF PHYSICIAN] - Within 2 Weeks Disposition Patient Disposition: Home, self care OBSV E&M: [id number] Observation care discharge
== END 2020-10-30 14:28 | disposition home or self-care (01) ==
LOC: ED 07:30 → PCU 10-30 07:06
PROVIDERS: Admitting Provider Hospitalist; Emergency Provider Student in an Organized Health Care Education/Training Program; PCP Student in an Organized Health Care Education/Training Program; Visit Provider Family Medicine
DX: G92 Toxic encephalopathy (principal); R06.02 Shortness of breath; R41.82 Altered mental status, unspecified; D61.818 Other pancytopenia; J44.9 Chronic obstructive pulmonary disease, unspecified; C34.90 Malignant neoplasm of unspecified part of unspecified bronchus or lung; R00.0 Tachycardia, unspecified; I10 Essential (primary) hypertension; F41.9 Anxiety disorder, unspecified; F32.9 Major depressive disorder, single episode, unspecified; Z79.899 Other long term (current) drug therapy; Z87.891 Personal history of nicotine dependence; Z91.81 History of falling; Z79.1 Long term (current) use of non-steroidal anti-inflammatories (NSAID)
CPT/HCPCS: 36415; 36591; 36600; 71045; 71275; 80048; 80053; 81001; 82140; 82306; 82607; 82803; 83605; 84484; 85025; 87040; 87086; 87088; 87426; 93005; 94640; 96372; 96374; 96375; 97162; 97166; 97530; 99218; 99285; J7030; Q9967; A4216; G0378

== ENCOUNTER 2021-02-04 07:04 | Inpatient (IN) | payer MEDICARE, MEDICAID, SELFPAY ==
[2020-10-29 09:43] VITALS: BMI 35.2
[2021-02-04 07:05] VITALS: BP 126/104; PULSE 122; RESP 16; TEMP 36.4; O2SAT 97; BMI 28.2
--- NOTE | 2021-02-04 07:17 | EKG12_ITS ---
Test Reason : WEAKNESS Blood Pressure : / mmHG Vent. Rate : 115 BPM Atrial Rate : 115 BPM P-R Int : 140 ms QRS Dur : 092 ms QT Int : 328 ms P-R-T Axes : 063 048 034 degrees QTc Int : 453 ms Sinus tachycardia with occasional Premature ventricular complexes Otherwise normal ECG Confirmed by MAYCOL CARDONA, IVA ([id number]), video tape editor AKIRA HELM ([id number]) on 02/09/2021 9:30:29 AM Referred By: NATALIYA Confirmed By:IVA SEVERINO MD
--- NOTE | 2021-02-04 07:19 | EX.ED.DYSGE1 ---
HPI History of Present Illness Chief Complaint: Weakness Detail of Chief Complaint: Has weakness for several weeks Informant: patient and family Narrative Narrative: Patient presents to the emergency department complaining of feeling generally weak. Patient currently being treated for lung cancer and has immunotherapy every 3 weeks but missed her treatment about 7 weeks ago because she did not feel she can get on the stairs safely. Patient lives with her son. Today she was trying to stand up out of a chair with assistance and her knees buckled and fell to the ground. No injury. Patient not eating much. She is drinking very little. She is currently on palliative care for some chronic back pain issues. She denies chest pain or shortness of breath. She denies fevers. She denies urinary symptoms. Prior similar symptoms: No PFSH PFSH Medical History (Updated 02/04/21 @ 09:[address] Latia Lira, DO) Anxiety and depression Asthma COPD (chronic obstructive pulmonary disease) Depression Former smoker Healthcare-associated pneumonia Hyperlipidemia Hypertension On home oxygen therapy Pneumonia TIA (transient ischemic attack) Home Medications albuterol sulfate 2 puff INHALATION Q4H PRN PRN 09/17/20 [History Last Taken 09/17/20] amlodipine 5 mg PO DAILY 09/17/20 [History Last Taken 09/16/20] cholecalciferol (vitamin D3) 2,000 unit PO DAILY 09/17/20 [History Last Taken 09/16/20] escitalopram oxalate 10 mg PO DAILY 09/17/20 [History Last Taken 09/16/20] famotidine 20 mg PO QHS 09/17/20 [History Last Taken 09/16/20] folic acid 1 mg PO DAILY@0800 09/17/20 [History Last Taken 09/16/20] gabapentin 300 mg PO TID 09/17/20 [History Last Taken 09/16/20] lorazepam 0.5 mg PO TID 09/17/20 [History Last Taken 09/16/20] magnesium chloride 71.5 mg PO BID 09/17/20 [History Last Taken 09/17/20] potassium chloride 10 meq PO BID 09/17/20 [History Last Taken 09/16/20] pravastatin 20 mg PO DAILY 09/17/20 [History Last Taken 09/16/20] prochlorperazine maleate 10 mg PO Q6H PRN PRN 09/17/20 [History Last Taken 09/16/20] trazodone 100 mg PO QHS 09/17/20 [History Last Taken 09/16/20] Oxygen, Home [Home Oxygen] 2 - 4 lpm NASAL CONT #1 unit 09/21/20 [Rx Last Taken Unknown] meloxicam 7.5 mg PO DAILY 10/11/20 [History Last Taken Unknown] lisinopril 10 mg PO DAILY 10/13/20 [History Last Taken Unknown] Allergy/AdvReac Type Severity Reaction Status Date / Time Iodinated Contrast Media Allergy Shortness Verified 02/04/21 07:10 [CONTRASTS] of breath pseudoephedrine HCl Allergy Shortness Verified 02/04/21 07:10 [From Sudafed] of breath sertraline [From Zoloft] Allergy Shortness Verified 02/04/21 07:10 of breath Surgical History H/O section History of appendectomy Social History Smoking Status: Former smoker ROS ROS ED ROS Narrative Generalized weakness Constitutional Constitutional ED: Reports systems reviewed and no addt'l complaints, except as documented; Denies body ache(s), change in weight, chills or fever(s) Eyes Eyes: Denies acute decrease in peripheral vision, change in vision, double vision or loss of vision ENT ENT ED: Reports none; Denies ear pain, lip swelling, loss taste/smell, neck pain, otalgia or sore throat Cardiovascular Cardiovascular: Reports none; Denies abdominal pain, chest pain with activity, leg edema, lightheadedness, palpitations, rapid heart rate or syncope Respiratory/Chest Respiratory/Chest: Reports none; Denies change in mental status, cough, dry cough, dyspnea, hemoptysis, shortness of breath at rest or shortness of breath with exertion Gastrointestinal Gastrointestinal: Reports none; Denies abdominal pain, change in stool character, diarrhea, hematemesis, hematochezia, melena, rectal bleeding or vomiting Genitourinary Genitourinary ED: Reports none; Denies abdominal discomfort, anuria, dysuria, genital pain or polyuria Musculoskeletal Musculoskeletal: Reports none; Denies arthralgias, back pain, difficulty walking, extremity pain, muscle weakness or myalgias Integumentary Reports none; Denies abscess or rash Neurologic Neurologic: Reports none; Denies abnormal gait, confusion, focal weakness, frequent falls, headache(s), loss of vision, numbness, paresthesias, radicular pain, vertigo or weakness Psychiatric Psychiatric: Reports systems reviewed and no addt'l complaints, except as documented and none; Denies behavioral changes, confusion, difficulty concentrating, hallucinations, suicidal ideation, tactile hallucinations or visual hallucinations Endocrine Endocrinology: Denies none, cold intolerance, excessive sweating, fatigue or heat intolerance Hematologic/Lymphatic Hematologic/Lymphatic: Reports none; Denies anemia, easy bleeding or easy bruising Allergic/Immunologic Allergic/Immunologic ED: Denies as per HPI, none, lip swelling, mouth swelling, throat swelling, tongue swelling or hives EXAM Physical Exam Const Vital Signs: 02/04/21 07:05 02/04/21 08:14 Temperature 97.5 F L Temperature Source Temporal Pulse Rate 122 H Respiratory Rate 16 Respiratory Effort Normal Non-Labored Respiratory Pattern Normal Blood Pressure 126/104 H Blood Pressure Mean 111 Pulse Ox 97 Oxygen Delivery Method Nasal Cannula Oxygen Flow Rate (L/min) 4 Positive well nourished and well developed General Appearance ED: well developed and NAD HEENT Reports TM's clear and dry mucous membranes normocephalic and atraumatic; Negative for trauma or tenderness Tympanic Membrane ED: Yes TM's clear Mouth ED: Yes dry mucous membranes Mouth: dry mucous membranes Eyes PERRL and EOMs intact bilaterally General Eye ED: Negative for pale conjunctiva or scleral icterus Neck no lymphadenopathy, supple and no JVD General: Negative for tenderness Chest Wall inspection of chest normal and palpation of chest normal Chest: Negative for tenderness Resp normal respiratory effort and clear to auscultation bilaterally Effort and Inspection: Negative for respiratory distress or pain with movement Auscultation: Negative for rhonchi, wheezes or diminished lung sounds Cardio regular rate, S1 normal heart sound, S2 normal heart sound and no murmurs Rate: tachycardic Peripheral Pulses: pulses 2+ throughout GI normal to inspection, nondistended, normoactive bowel sounds, soft to palpation, non-tender, non-distended and no masses Back/Spine no CVA tenderness and no thoracic nor lumbar tenderness Extremity normal to inspection General Extremety ED: Negative for edema General Extremity: Negative for edema Neuro oriented x3, CN's II-XII intact bilaterally, no sensory deficits noted and gait normal Sensorium / Orientation: awake, alert, oriented to person, oriented to place and oriented to time Motor Exam: strength 5/5 throughout and strength abnormal Psych mental status grossly normal Skin no rashes or lesions noted, no wounds and No skin turgor normal MDM MDM MDM Narrative Medical decision making narrative: Patient noted to have UTI and started on Rocephin. She was given normal saline. Patient would be interested in looking into hospice. Case discussed with hospitalist will evaluate patient for admission. X-ray that might be consistent with pneumonia and Zithromax also added to IV antibiotic regimen. Lab Data Attestation: I reviewed the patient's lab results. Labs: Laboratory Results - last 24 hr 02/04/21 02/04/21 02/04/21 07:46 07:46 08:10 WBC 7.4 RBC 4.11 L Hgb 12.3 Hct 39.5 MCV 96.1 MCH 29.9 MCHC 31.1 L RDW Std Deviation 54.5 H RDW Coeff of Amanuel 15.6 H Plt Count 201 MPV 10.7 Immature Gran % (Auto) 1.200 H Neut % (Auto) 67.0 Lymph % (Auto) 23.9 [place] % (Auto) 6.5 Eos % (Auto) 0.9 Baso % (Auto) 0.5 Absolute Neuts (auto) 5.0 Absolute Lymphs (auto) 1.77 Nucleated RBC % 0 Sodium 134 L Potassium 5.0 Chloride 96 L Carbon Dioxide 29.0 Anion Gap 9 BUN 11 Creatinine 0.76 Estim Creat Clear Calc 44.54 Est GFR (MDRD) Af Amer 98 Est GFR (MDRD) Non-Af 81 BUN/Creatinine Ratio 14.5 Glucose 100 Calcium 9.4 Total Bilirubin 0.50 AST 31 ALT 21 Alkaline Phosphatase 53 Troponin I High Sens 6.9 Total Protein 6.9 Albumin 2.8 L Globulin 4.1 Albumin/Globulin Ratio 0.7 L Urine Color Yellow Urine Clarity Turbid Urine pH 6.0 Ur Specific [place] 1.015 Urine Protein 100 H Urine Glucose (UA) Normal Urine Ketones 15 H Urine Occult Blood 250 H Urine Nitrite Positive H Urine Bilirubin Negative Urine Urobilinogen Normal Ur Leukocyte Esterase 500 H Urine RBC 5-10 SEEN Urine WBC >100 SEEN Ur Squamous Epith Cells 0-5 SEEN Urine Bacteria 3+ Urine Mucus 0 SEEN Radiography Diagnostic Testing: Radiology Impression Chest X-Ray 02/04/21 08:22 IMPRESSION: Probable patchy pneumonic infiltrates are noted in the right lung base, which previously were not seen. Underlying metastasis are a less likely diagnostic possibility. Electronically Signed: Aaron Lawrence DO at 8:39 EDT Tel , Service support , 1 view chest x-ray obtained interpreted by myself as increased right lower lobe markings. Radiology in agreement and felt this may be a pneumonic process versus less likely metastasis to the right lung. EKG Initial EKG: Attestation: I personally reviewed and interpreted this EKG as follows: Comments: Sinus tachycardia with a ventricular rate of 115 bpm with occasional PVCs. Prior EKG tracings: available for review Prior: Unchanged Discharge Plan Triage Chief Complaint: Weakness ED Provider: Latia Lira Dx/Rx/DC Orders Clinical Impression: Weakness, Acute UTI, Pneumonia Prescriptions: No Action trazodone 50 MG tablet 100 mg PO QHS RF: 0 famotidine 20 MG tablet 20 mg PO QHS RF: 0 folic acid 1 MG tablet 1 mg PO DAILY@0800 RF: 0 pravastatin 20 MG tablet 20 mg PO DAILY RF: 0 cholecalciferol (vitamin D3) 2,000 UNIT capsule 2,000 unit PO DAILY RF: 0 amlodipine 5 MG tablet 5 mg PO DAILY RF: 0 prochlorperazine maleate 10 MG tablet 10 mg PO Q6H PRN PRN (Reason: Nausea) RF: 0 lorazepam 0.5 MG tablet 0.5 mg PO TID RF: 0 gabapentin 300 MG capsule 300 mg PO TID RF: 0 escitalopram oxalate 20 MG tablet 10 mg PO DAILY RF: 0 potassium chloride 10 MEQ tablet,ER particles/crystals 10 meq PO BID RF: 0 magnesium chloride 71.5 MG tablet,delayed release (DR/EC) 71.5 mg PO BID RF: 0 albuterol sulfate 1 INHALER inhaler 2 puff INHALATION Q4H PRN PRN (Reason: Wheezing) RF: 0 Oxygen, Home [Home Oxygen] 2 - 4 lpm NASAL CONT Qty: 1 RF: 0 meloxicam 7.5 MG tablet 7.5 mg PO DAILY RF: 0 lisinopril 10 MG tablet 10 mg PO DAILY RF: 0 Primary Care Provider: Jose Tafoya Referrals: Jose Tafoya DO [Primary Care Provider] - Disposition Disposition: Acute Care [facility]
[2021-02-04 07:53] LABS: Absolute Lymphocyte Count 1.77 X10^3/uL (0.83-4.51); Basophil# 0.04 X10^3/uL; Basophil% 0.5 % (0-1); Eosinophil# 0.07 X10^3/uL; Eosinophils% 0.9 % (0-5); Hematocrit 39.5 % (37-47); Hemoglobin 12.3 g/dL (12.0-15.0); Lymphocyte # 1.77 X10^3/ul (0.83-4.51); Lymphocyte % 23.9 % (19-41); Mean Corp Hgb Conc 31.1 g/dL (32-36); Mean Corpuscular Hgb 29.9 pg (27.0-32.0); Mean Corpuscular Volume 96.1 fL (81-99); Mean Platelet Vol. 10.7 fl (6.2-12.0); Monocyte# 0.48 X10^3/uL; Monocyte% 6.5 % (0-10); NRBC Flagged by Analyzer 0 % (0-5); Neutrophil # 4.96 X10^3/uL (2.7-7.7); Platelet Count 201 K/mm3 (150-450); RBC Distribution Width CV 15.6 % (11.6-14.6); RBC Distribution Width SD 54.5 fl (35.1-43.9); Red Blood Count 4.11 M/mm3 (4.2-5.4); White Blood Count 7.4 K/mm3 (4.4-11.0)
[2021-02-04] MEDS: 0.9% Normal Saline 1,000 ML 150 ML IV (08:01)
[2021-02-04 08:13] LABS: Mucous, Urine 0 SEEN /hpf (<or=2+)
[2021-02-04 08:14] LABS: ALB/GLOB Ratio 0.7 RATIO (0.9-2.4); AST(SGOT) 31 U/L (15-37); Alanine Aminotransfer ALT/SGPT 21 U/L (13-56); Albumin, Serum 2.8 g/dL (3.2-5.0); Alkaline Phosphatase 53 U/L (45-117); Anion Gap 9 (5-15); BUN 11 mg/dL (7-18); BUN/Creat Ratio 14.5 RATIO (10-20); Calcium,Total 9.4 mg/dL (8.5-10.1); Chloride 96 mmol/L (98-107); Creatinine, Serum 0.76 mg/dL (0.55-1.02); EST Glomerular Filtration Rate 81 mL/min (>60); Est Glom Filt Rate - Afr Amer 98 mL/min (>60); Estimated Creatinine Clearance 44.54 ml/min; Globulin 4.1 g/dL (2.2-4.2); Glucose 100 mg/dL (74-106); Protein, Total 6.9 g/dL (6.4-8.2); Sodium Level 134 mmol/L (136-145); Troponin-I HS 6.9 pg/mL (3.0-53.7)
[2021-02-04 08:16] LABS: Color, Urine Yellow (Yellow); Glucose, Dipstick Normal (Normal); Ketone-Dipstick 15 mg/dl (Negative); Leukocyte Esterase-Dipstick 500 /ul (Negative); Nitrite-Dipstick Positive (Negative); Occult Blood-Urine 250 /ul (Negative); Protein-Dipstick 100 mg/dl (Negative); Specific Gravity, Urine 1.015 (1.002-1.030); Urine Bilirubin Dipstick Negative (Negative); Urine Clarity Turbid (Clear); Urine Urobilinogen Normal (Normal)
--- NOTE | 2021-02-04 08:22 | RAD_ITS ---
EXAM DESCRIPTION: PORTABLE AP CHEST CLINICAL HISTORY: 66 years Female, tachycardia tachycardia COMPARISON: Previous portable chest obtained on 10/21/2020 FINDINGS: Right IJ MediPort catheter is noted in place with its tip in the superior vena cava. The rest of the thorax is intact. The heart and mediastinum appear to be within normal limits. The lungs demonstrate some patchy nodular densities in the right lung base which most likely represent pneumonic infiltrates. These were not previously seen. Underlying metastasis cannot be completely excluded. The left lung appears to be normal. RAD/Chest 1 View (Portable) IMPRESSION: Probable patchy pneumonic infiltrates are noted in the right lung base, which previously were not seen. Underlying metastasis are a less likely diagnostic possibility. Electronically Signed: Aaron Lawrence DO at 8:39 EDT Tel , Service support ,
[2021-02-04 08:25] LABS: Bacteria 3+ /hpf (None Seen); Red Blood Cells-Urine 5-10 SEEN /hpf (0-5); Squamous Epithelial Cells - UA 0-5 SEEN /hpf (5-10); White Blood Cells >100 SEEN /hpf (0-5)
[2021-02-04] MEDS: Ceftriaxone 1 GM/50 ML BAG IV (08:56)
[2021-02-04 09:29] VITALS: BP 122/80; PULSE 105; RESP 15; TEMP 36.6; O2SAT 99
--- NOTE | 2021-02-04 09:54 | HP.PCM.HOS_ITS ---
Documented by User: Vikki Batres NP, CLIENT SUPPORT PROFESSIONAL-C 02/04/21 11:06 HPI - General General Date of Admission: 02/04/21 Date of Service: 02/04/21 Chief Complaint: Weakness. HPI Narrative ELISE QUINONEZ, is a 66 F who presents to the emergency room due to weakness. Patient reports this is worsened over the past few days and she had a fall at home today. She denies urinary symptoms. Reports cough although states this is somewhat chronic for her. Denies shortness of breath, denies increased oxygen requirements. Denies fever, chills. Patient is currently under palliative due to small cell lung cancer stage IV. States she is interested in transition to hospice and was to have a meeting at home tomorrow. She denies injury during her fall today. Denies hitting her head. Reports intermittent nausea. Denies other associated symptoms or complaints. She has a past medical history of COPD with chronic hypoxic respiratory failure, small cell lung cancer stage IV, chronic kidney disease stage II, anxiety, depression, hypertension, hyperlipidemia. [facility] Medical History (Updated 02/04/21 @ 10:49 by Katherine Yost) Anxiety and depression Asthma Cancer COPD (chronic obstructive pulmonary disease) Depression Former smoker Healthcare-associated pneumonia Hyperlipidemia Hypertension On home oxygen therapy Pneumonia TIA (transient ischemic attack) Home Medications albuterol sulfate 2 puff INHALATION Q4H PRN PRN 09/17/20 [History Last Taken 09/17/20] cholecalciferol (vitamin D3) 2,000 unit PO DAILY 09/17/20 [History Last Taken 09/16/20] escitalopram oxalate 20 mg PO DAILY 09/17/20 [History Last Taken 09/16/20] famotidine 20 mg PO QHS 09/17/20 [History Last Taken 09/16/20] folic acid 1 mg PO DAILY@0800 09/17/20 [History Last Taken 09/16/20] gabapentin 300 mg PO TID 09/17/20 [History Last Taken 09/16/20] lorazepam 0.5 mg PO TID 09/17/20 [History Last Taken 09/16/20] magnesium chloride 71.5 mg PO BID 09/17/20 [History Last Taken 09/17/20] potassium chloride 10 meq PO BID 09/17/20 [History Last Taken 09/16/20] pravastatin 20 mg PO DAILY 09/17/20 [History Last Taken 09/16/20] prochlorperazine maleate 10 mg PO Q6H PRN PRN 09/17/20 [History Last Taken 09/16/20] Oxygen, Home [Home Oxygen] 2 - 4 lpm NASAL CONT 02/04/21 [History Last Taken Unknown] docusate sodium [DOK] 100 mg PO BID PRN PRN 02/04/21 [History Last Taken Unknown] loperamide 2 mg PO BID PRN PRN 02/04/21 [History Last Taken Unknown] pantoprazole [Protonix] 20 mg PO DAILY 02/04/21 [History Last Taken Unknown] Allergy/AdvReac Type Severity Reaction Status Date / Time Iodinated Contrast Media Allergy Shortness Verified 02/04/21 07:10 [CONTRASTS] of breath pseudoephedrine HCl Allergy Shortness Verified 02/04/21 07:10 [From Sudafed] of breath sertraline [From Zoloft] Allergy Shortness Verified 02/04/21 07:10 of breath Family History (Updated 02/04/21 @ 09:59 by Vikki Batres NP, CLIENT SUPPORT PROFESSIONAL-C) Mother Heart disease Father Cancer Surgical History H/O section History of appendectomy Social History (Updated 02/04/21 @ 10:00 by Vikki Batres NP, CLIENT SUPPORT PROFESSIONAL-C) household members: family Smoking Status: Former smoker alcohol intake: never substance use type: does not use ROS Constitutional Constitutional: Reports malaise and weakness; Denies change in weight, chills, fatigue or fever(s) Cardiovascular Cardiovascular: Denies chest pain, edema, lightheadedness, palpitations or syncope Respiratory/Chest Respiratory/Chest: Reports cough and other Details: Chronic oxygen use ; Denies dyspnea, productive cough, shortness of breath at rest, shortness of breath with exertion or wheezing Gastrointestinal Gastrointestinal: Reports nausea; Denies abdominal pain, constipation, diarrhea or vomiting Genitourinary Genitourinary: Denies burning urination, difficulty urinating, dysuria, hematuria, urinary frequency, urinary incontinence or urinary urgency Musculoskeletal Musculoskeletal: Denies back pain, joint pain or muscle weakness Integumentary Integumentary: Denies erythema, lesions, rash or wounds Neurologic Neurologic: Denies abnormal speech, confusion, dizziness, focal weakness, numbness, paresthesias, seizure-like activity or syncope Psychiatric Psychiatric: Reports anxiety and depression Hematologic/Lymphatic Hematologic/Lymphatic: Denies anemia, easy bleeding or easy bruising Allergic/Immunologic Allergic/Immunologic: Denies hives or asthma Vital Signs Vital Signs Vital Signs: 02/04/21 07:05 02/04/21 08:14 02/04/21 09:29 Temperature 97.5 F L 97.8 F Temperature Source Temporal Temporal Pulse Rate 122 H 105 H Respiratory Rate 16 15 Respiratory Effort Normal Non-Labored Respiratory Pattern Normal Blood Pressure 126/104 H 122/80 H Blood Pressure Mean 111 94 Pulse Ox 97 99 Oxygen Delivery Method Nasal Cannula Nasal Cannula Oxygen Flow Rate (L/min) 4 4 Weight Weight: 159 lb 6.307 oz Body Mass Index (BMI) 28.2 Physical Exam Const alert, oriented x3 and no apparent distress Orientation / Consciousness: awake, oriented to person, oriented to place and oriented to time HEENT normocephalic and moist oral mucous membranes Eyes PERRL, EOMs intact bilaterally and conjunctivae normal Neck no lymphadenopathy Resp clear to auscultation bilaterally Auscultation: diminished lung sounds Cardio regular rate, regular rhythm and no murmurs Peripheral Pulses: pulses 2+ throughout GI normal to inspection, nondistended, normoactive bowel sounds, non-tender and non-distended Extremity normal to inspection Skin no rashes or lesions noted Lesions: no lesions Rashes: no rashes Trauma: no lacerations or abrasions Neuro CN's II-XII intact bilaterally, no focal motor deficits, no sensory deficits noted and deep tendon reflexes 2+ bilaterally Psych mental status grossly normal and affect normal Results Lab / Micro Data Result Diagrams: 02/04/21 07:46 02/04/21 07:46 Labs: Laboratory Results - last 24 hr 02/04/21 07:46: WBC 7.4, RBC 4.11 L, Hgb 12.3, Hct 39.5, MCV 96.1, MCH 29.9, MCHC 31.1 L, RDW Std Deviation 54.5 H, RDW Coeff of Amanuel 15.6 H, Plt Count 201, MPV 10.7, Immature Gran % (Auto) 1.200 H, Neut % (Auto) 67.0, Lymph % (Auto) 23.9, [place] % (Auto) 6.5, Eos % (Auto) 0.9, Baso % (Auto) 0.5, Absolute Neuts (auto) 5.0, Absolute Lymphs (auto) 1.77, Nucleated RBC % 0 02/04/21 07:46: Sodium 134 L, Potassium 5.0, Chloride 96 L, Carbon Dioxide 29.0, Anion Gap 9, BUN 11, Creatinine 0.76, Estim Creat Clear Calc 44.54, Est GFR (MDRD) Af Amer 98, Est GFR (MDRD) Non-Af 81, BUN/Creatinine Ratio 14.5, Glucose 100, Calcium 9.4, Total Bilirubin 0.50, AST 31, ALT 21, Alkaline Phosphatase 53, Troponin I High Sens 6.9, Total Protein 6.9, Albumin 2.8 L, Globulin 4.1, Albumin/Globulin Ratio 0.7 L 02/04/21 08:10: Urine Color Yellow, Urine Clarity Turbid, Urine pH 6.0, Ur Specific [place] 1.015, Urine Protein 100 H, Urine Glucose (UA) Normal, Urine Ketones 15 H, Urine Occult Blood 250 H, Urine Nitrite Positive H, Urine Bilirubin Negative, Urine Urobilinogen Normal, Ur Leukocyte Esterase 500 H, Urine RBC 5-10 SEEN, Urine WBC >100 SEEN, Ur Squamous Epith Cells 0-5 SEEN, Urine Bacteria 3+, Urine Mucus 0 SEEN Micro: Microbiology 02/04/21 07:46 Mucosa - Nose SARS-CoV-2 Antigen (Rapid) - Final Radiology Impression Chest X-Ray 02/04/21 08:22 IMPRESSION: Probable patchy pneumonic infiltrates are noted in the right lung base, which previously were not seen. Underlying metastasis are a less likely diagnostic possibility. Electronically Signed: Aaron Lawrence DO at 8:39 EDT Tel , Service support , Assessment & Plan Assessment/Plan (1) Acute UTI: (2) Weakness: PLAN: 1. Acute UTI, possible community-acquired right lower lobe pneumonia-IV azithromycin and IV Rocephin. Covid negative. Urine culture pending. 2. Weakness, debility, functional decline-patient reports worsening weakness with fall at home. PT/OT. Patient requesting hospice consult. 3. COPD with chronic hypoxic respiratory failure-on 4 L nasal cannula at baseline. As needed albuterol aerosol. 4. Chronic kidney disease stage II-stable. 5. Small cell lung cancer- following with Dr. Pryor On immunotherapy. 6. Anxiety/depression-on Lexapro, Ativan. 7. Hypertension-no longer on regimen. Monitor blood pressure. 8. Hyperlipidemia-continue statin. DVT prophylaxis-Lovenox subcu CODE STATUS: DNR CCA no intubation, possible transition to comfort care only pending hospice consult This patient was seen by KIKO Jean under the supervision of Dr. Zamora. Documented by User: Dr. Swapnil Zamora MD 02/04/21 13:28 HPI - General General Date of Admission: 02/04/21 [facility] Medical History (Updated 02/04/21 @ 10:49 by Katherine Yost) Anxiety and depression Asthma Cancer COPD (chronic obstructive pulmonary disease) Depression Former smoker Healthcare-associated pneumonia Hyperlipidemia Hypertension On home oxygen therapy Pneumonia TIA (transient ischemic attack) Home Medications albuterol sulfate 2 puff INHALATION Q4H PRN PRN 09/17/20 [History Last Taken 09/17/20] cholecalciferol (vitamin D3) 2,000 unit PO DAILY 09/17/20 [History Last Taken 09/16/20] escitalopram oxalate 20 mg PO DAILY 09/17/20 [History Last Taken 09/16/20] famotidine 20 mg PO QHS 09/17/20 [History Last Taken 09/16/20] folic acid 1 mg PO DAILY@0800 09/17/20 [History Last Taken 09/16/20] gabapentin 300 mg PO TID 09/17/20 [History Last Taken 09/16/20] lorazepam 0.5 mg PO TID 09/17/20 [History Last Taken 09/16/20] magnesium chloride 71.5 mg PO BID 09/17/20 [History Last Taken 09/17/20] potassium chloride 10 meq PO BID 09/17/20 [History Last Taken 09/16/20] pravastatin 20 mg PO DAILY 09/17/20 [History Last Taken 09/16/20] prochlorperazine maleate 10 mg PO Q6H PRN PRN 09/17/20 [History Last Taken 09/16/20] Oxygen, Home [Home Oxygen] 2 - 4 lpm NASAL CONT 02/04/21 [History Last Taken Unknown] docusate sodium [DOK] 100 mg PO BID PRN PRN 02/04/21 [History Last Taken Unknown] loperamide 2 mg PO BID PRN PRN 02/04/21 [History Last Taken Unknown] pantoprazole [Protonix] 20 mg PO DAILY 02/04/21 [History Last Taken Unknown] Allergy/AdvReac Type Severity Reaction Status Date / Time Iodinated Contrast Media Allergy Shortness Verified 02/04/21 07:10 [CONTRASTS] of breath pseudoephedrine HCl Allergy Shortness Verified 02/04/21 07:10 [From Sudafed] of breath sertraline [From Zoloft] Allergy Shortness Verified 02/04/21 07:10 of breath Family History (Updated 02/04/21 @ 09:59 by Vikki Batres NP, CLIENT SUPPORT PROFESSIONAL-C) Mother Heart disease Father Cancer Surgical History H/O section History of appendectomy Social History (Updated 02/04/21 @ 10:00 by Vikki Batres NP, CLIENT SUPPORT PROFESSIONAL-C) household members: family Smoking Status: Former smoker alcohol intake: never substance use type: does not use Results Lab / Micro Data Result Diagrams: 02/04/21 07:46 02/04/21 07:46 Charges/Coding Addendum Addendum: Dr. Zamora: I personally reviewed the chart and examined the patient, and agree with the above findings. 66-year-old female with stage IV small cell lung cancer presents to the hospital with weakness. This has been getting worse over the last several days however she was too weak even 3 weeks ago to go for her immunotherapy for her cancer. In the ER she was found to have a UTI, urine culture was obtained and she was started on IV Rocephin, IV azithromycin was also added secondary to possible patchy infiltrates in her right lower lobe though this does not appear to be significantly different than what was seen in October. She currently is active with palliative care however would like to discuss her situation with hospice which will happen tomorrow morning around 9 AM. In the meantime we will continue with antibiotic therapy with transition to oral therapy on discharge. Visit Charges Inpatient E&M: 41098 Init Hosp L3
[2021-02-04 10:12] VITALS: BP 132/99; PULSE 117; RESP 20; TEMP 36.4; O2SAT 96
[2021-02-04 10:14] VITALS: BMI 28.3
[2021-02-04] MEDS: 0.9% Normal Saline 1,000 ML 100 ML IV ×2 (11:00→20:40)
--- NOTE | 2021-02-04 11:56 | CM.UR ---
Addendum entered by Tata Louie 02/04/21 12:49: Pt's son is here now, son in room w/pt and physician. Physician reviewed options w/pt and son, SW reiterated these options, which include home w/hospice, SNF w/hospice, or SNF w/palliative care. As per son, pt already is active w/palliative care. SW provided list of [place] facilities in the area that take pt's insurance, complete w/utilization and resource use data. Son and pt plan to talk to try to decide what pt may want to do. SW explained the difference between going to SNF for rehab vs. hospice. Pt does have Medicaid crossover, SW explained that this may cover stay in SNF if pt is going on hospice, and if pt goes for rehab, pt would be covered by Medicare. Son asked if pt would lose Social Security if she goes to a jail under Medicaid. SW explained is not sure at what point in the pt's stay this would happen. Son states is familiar with hospice as his father was on hospice, and was in and out of the inpatient unit. Son states he works 8 hours and pt won't change her own depends, so is sitting in her own urine until he gets home. Pt's sister is not able to help pt, she is developmentally delayed and doesn't truly understand that pt needs help. Son also mentioned he has a roommate, it is unclear whether or not this person is available to help. SW will continue to follow, son and pt to meet w/hospice tomorrow morning. TIFFANIE Patten Original Note: SW met w/pt in room in regard to prior level of care, hospice referral, discharge plan. As per ELECTRICIANS TOP HELPER, pt was to meet w/hospice tomorrow. As per RN, son asking about pt going to assisted living. Son is at an appointment but will be back this afternoon. PCP: Dr. Tafoya Specialists: Dr. Negrita Silva [facility]: [facility] Insurance: Medicare/Medicaid Crossover LNOK: Son Hi, sister Carri LW/POA: As per pt, alicia Do is POA. POA form is on file, with LW provision initialed. Prior level of function: Pt lives in an apartment with her son Hi and sister Carri. Pt states it's 8 steps to enter, and she has difficulty with steps. Pt's son and sister both assist pt w/ADLS. Pt's son helps pt up out of the chair, cooks, drives. Pt's sister does the laundry and cleaning. Pt states she is normally able to walk but today could not get her legs to go. DME/SNF/HHC: Pt has not had home health in the past, has not been to SNF. Pt uses a walker, shower chair, and on oxygen through [employer]. SW spoke w/pt about anticipated discharge plan. Pt confirmed that she was to meet w/hospice tomorrow. She states she wants to go to the inpt hospice unit. SW explained that pt may not qualify for the inpatient hospice unit, but will have someone from hospice come to speak w/her about options. SW explained another option may be to go to a jail with hospice. Pt states understanding. SW explained will call hospice to make referral, and let her know when they can come see her. Pt's son will be back soon, SW explained will see if they can come this afternoon to meet w/both her and her son. SW faxed referral to [facility], called to make referral. As per Jairo, pt was to meet w/hospice for a palliative referral tomorrow. They are able to meet w/pt and son tomorrow morning at 9am to review options. SW spoke w/pt again, let her know that someone from [facility] will be here tomorrow at 9am. SW then spoke w/pt about both palliative and hospice, as pt did not understand the difference. Pt is stating she wants to continue to seek medical treatment. SW explained that this would be palliative care. SW explained will ask that the person from [facility] come tomorrow to explain both options. SW also explained once her son gets here, SW will speak w/them both about options for pt after discharge--and that pt may need to go somewhere for rehab, in a [place] [facility] [place]. Pt states understanding. SW will continue to follow, consult for palliative/hospice to see pt in morning, SW to speak w/both pt and son tomorrow in regard to discharge options when son is here visiting later. TIFFANIE Patten
[2021-02-04] MEDS: Enoxaparin 40 MG/0.4 ML Syringe SC (13:34)
[2021-02-04 13:43] VITALS: BP 115/83; PULSE 106; RESP 18; TEMP 36.8; O2SAT 100
--- NOTE | 2021-02-04 13:47 | CASEMGMT ---
Addendum entered by Tata Louie 02/04/21 13:51: SW spoke w/Wanda from [place] for clarification on pt's Medicaid. She states it should be fairly easy to convert Crossover Medicaid to superintendent [employer] care Medicaid, what is usually needed is a bank statement showing pt has less than $2000 in the bank. As per Wanda, pt may have a patient liability--meaning pt would lose her Social Security benefits when she enters the senior living--though until pt's Medicaid is changed it's not clear when the liability would be owed. SW explained this information to the pt and the son. SW will continue to follow, will follow up w/pt and son tomorrow after they meet with palliative/hospice. Original Note: SW met w/pt in room in regard to prior level of care, hospice referral, discharge plan. As per TRAINING AND DEVELOPMENT PROJECT LEADER, pt was to meet w/hospice tomorrow. As per RN, son asking about pt going to assisted living. Son is at an appointment but will be back this afternoon. PCP: Dr. Tafoya Specialists: Dr. Maldonado, Dr. Rees [facility]: [facility] Insurance: Medicare/Medicaid Crossover LNOK: Son Hi, sister Carri LW/POA: As per pt, son Hi is POA. POA form is on file, with LW provision initialed. Prior level of function: Pt lives in an apartment with her son Hi and sister Carri. Pt states it's 8 steps to enter, and she has difficulty with steps. Pt's son and sister both assist pt w/ADLS. Pt's son helps pt up out of the chair, cooks, drives. Pt's sister does the laundry and cleaning. Pt states she is normally able to walk but today could not get her legs to go. DME/SNF/HHC: Pt has not had home health in the past, has not been to SNF. Pt uses a walker, shower chair, and on oxygen through [employer]. SW spoke w/pt about anticipated discharge plan. Pt confirmed that she was to meet w/hospice tomorrow. She states she wants to go to the inpt hospice unit. SW explained that pt may not qualify for the inpatient hospice unit, but will have someone from hospice come to speak w/her about options. SW explained another option may be to go to a senior living with hospice. Pt states understanding. SW explained will call hospice to make referral, and let her know when they can come see her. Pt's son will be back soon, SW explained will see if they can come this afternoon to meet w/both her and her son. SW faxed referral to [facility], called to make referral. As per Jairo, pt was to meet w/hospice for a palliative referral tomorrow. They are able to meet w/pt and son tomorrow morning at 9am to review options. SW spoke w/pt again, let her know that someone from [facility] will be here tomorrow at 9am. SW then spoke w/pt about both palliative and hospice, as pt did not understand the difference. Pt is stating she wants to continue to seek medical treatment. SW explained that this would be palliative care. SW explained will ask that the person from [facility] come tomorrow to explain both options. SW also explained once her son gets here, SW will speak w/them both about options for pt after discharge--and that pt may need to go somewhere for rehab, in a [facility] facility. Pt states understanding. Pt's son came in a short time time later, in room w/pt and physician. Physician reviewed options w/pt and son, SW reiterated these options, which include home w/hospice, SNF w/hospice, or SNF w/palliative care. As per son, pt already is active w/palliative care. SW provided list of [facility] facilities in the area that take pt's insurance, complete w/utilization and resource use data. Son and pt plan to talk to try to decide what pt may want to do. SW explained the difference between going to SNF for rehab vs. hospice. Pt does have Medicaid crossover, SW explained that this may cover stay in SNF if pt is going on hospice, and if pt goes for rehab, pt would be covered by Medicare. Son asked if pt would lose Social Security if she goes to a senior living under Medicaid. SW explained is not sure at what point in the pt's stay this would happen. Son states is familiar with hospice as his father was on hospice, and was in and out of the inpatient unit. Son states he works 8 hours and pt won't change her own depends, so is sitting in her own urine until he gets home. Pt's sister is not able to help pt, she is developmentally delayed and doesn't truly understand that pt needs help. Son also mentioned he has a roommate, it is unclear whether or not this person is available to help. SW will continue to follow, son and pt to meet w/hospice tomorrow morning. TIFFANIE Patten
[2021-02-04] MEDS: NYSTATIN 500,000 UNIT/5 ML UDC 500000 UNIT PO ×2 (14:12→20:51)
[2021-02-04] MEDS: Menthol/Lanolin/Calamine/Znox 113 GM Tube 1 APPLIC TOPICAL ×2 (14:13→20:41)
--- NOTE | 2021-02-04 15:09 | CHAPLAIN ---
Type of Pastoral Visit _x__ Initial Visit ___ Follow-up Visit ___ On-call Visit ___ General Patient Visit ___ Spiritual Assessment ___ Family Conference ___ Bereavement ___ Rapid Response ___ Code Blue ___ Other (describe below) Pastoral Care Referral From _x__ Patient ___ Family ___ Nurse ___ Physician ___ Molding Fitter ___ Print Production Manager ___ Other (describe below) Sacrament/Intervention _x__ Active listening ___ Anointing ___ Congregation ___ Bereavement ___ Communion ___ Angie exploration ___ ___ Life review _x__ Prayer ___ Reconciliation ___ Sacrament of Sick ___ Supportive presence ___ Wedding ___ Other (describe below) Pastoral Comments son of patient in room with her; pt welcomes this milking system installer and would like support and prayer
[2021-02-04] MEDS: proCHLORPERazine 5 MG Tablet 10 MG PO ×2 (15:14→21:04)
--- NOTE | 2021-02-04 15:50 | CASEMGMT ---
POA for healthcare scanned into summary tab of echart, living will provision is initialed. Son Hi is listed as medical POA. TIFFANIE Patten
[2021-02-04 20:23] VITALS: BP 121/82; PULSE 104; RESP 18; TEMP 36.6; O2SAT 95
[2021-02-04] MEDS: Pravastatin 20 MG Tablet PO (20:51)
[2021-02-04] MEDS: Gabapentin 300 MG Capsule PO (20:51)
[2021-02-04] MEDS: Famotidine 20 MG Tablet PO (20:51)
[2021-02-04] MEDS: MELATONIN 3 MG TABLET PO (21:00)
[2021-02-04 21:30] VITALS: PULSE 106; RESP 16; O2SAT 96
[2021-02-04] MEDS: Albuterol 2.5 MG/3 ML VIAL.NEB. INHALATION (21:30)
[2021-02-05] VITALS (8 sets, daily range): BP systolic 105–122; BP diastolic 68–83; PULSE 90–112; RESP 18–20; TEMP 36.5–37; O2SAT 95–99
[2021-02-05] MEDS: 0.9% Normal Saline 1,000 ML 100 ML IV ×2 (06:09→18:58)
[2021-02-05 06:32] LABS: Absolute Lymphocyte Count 1.13 X10^3/uL (0.83-4.51); Absolute Neutrophil Count 3.9 X10^3/uL (2.0-7.7); Basophil# 0.02 X10^3/uL; Basophil% 0.4 % (0-1); Eosinophil# 0.06 X10^3/uL; Eosinophils% 1.1 % (0-5); Hematocrit 35.1 % (37-47); Hemoglobin 10.7 g/dL (12.0-15.0); Lymphocyte # 1.13 X10^3/ul (0.83-4.51); Lymphocyte % 19.9 % (19-41); Mean Corp Hgb Conc 30.5 g/dL (32-36); Mean Corpuscular Hgb 29.8 pg (27.0-32.0); Mean Corpuscular Volume 97.8 fL (81-99); Mean Platelet Vol. 9.9 fl (6.2-12.0); Monocyte# 0.46 X10^3/uL; Monocyte% 8.1 % (0-10); NRBC Flagged by Analyzer 0 % (0-5); Neutrophil # 3.94 X10^3/uL (2.7-7.7); Neutrophil % 69.3 % (47-70); Platelet Count 178 K/mm3 (150-450); RBC Distribution Width CV 15.8 % (11.6-14.6); RBC Distribution Width SD 56.5 fl (35.1-43.9); Red Blood Count 3.59 M/mm3 (4.2-5.4); White Blood Count 5.7 K/mm3 (4.4-11.0)
[2021-02-05 06:57] LABS: Anion Gap 6 (5-15); BUN 10 mg/dL (7-18); Calcium,Total 8.7 mg/dL (8.5-10.1); Chloride 101 mmol/L (98-107); Creatinine, Serum 0.48 mg/dL (0.55-1.02); EST Glomerular Filtration Rate 138 mL/min (>60); Est Glom Filt Rate - Afr Amer 167 mL/min (>60); Estimated Creatinine Clearance 44.54 ml/min; Glucose 81 mg/dL (74-106); Potassium 3.7 mmol/L (3.5-5.1); Sodium Level 136 mmol/L (136-145)
[2021-02-05] MEDS: Ceftriaxone 1 GM/50 ML BAG IV (09:06)
[2021-02-05] MEDS: NYSTATIN 500,000 UNIT/5 ML UDC 500000 UNIT PO ×3 (09:12→23:18)
[2021-02-05] MEDS: Enoxaparin 40 MG/0.4 ML Syringe SC (09:12)
[2021-02-05] MEDS: Loperamide 2 MG Capsule 4 MG PO (09:13)
[2021-02-05] MEDS: Folic Acid 1 MG Tablet PO (09:13)
--- NOTE | 2021-02-05 09:29 | HP.PCM.PAL_ITS ---
[facility] - General General Date of Admission: 02/04/21 Chief Complaint: Weakness. [facility] Narrative VANDANA QUINONEZ, is a 66 F, known to palliative care, who presents to [facility] [place] 02/04/2021 with complaints of increased weakness and falls. Palliative following her for chronic back pain and cancer related pain. Has a diagnosis of stage IV small cell lung cancer and follows with Dr. Maldonado. Currently receiving immunotherapy every 3 weeks. She has missed treatments secondary to her profound weakness. Appetite has been very poor. She no longer smokes. Wears oxygen and denies any increase in requirements. She does have an element of anxiety and depression due to her decrease in functional status over the last several months. Patient was found to have a UTI and was admitted for further evaluation and management. Chest x-ray showed pneumonia and she was started on antibiotics. Her urine culture is still pending. She had indicated she would be interested in looking into hospice services. Vandana has been wishy-washy and deciding if she wants to pursue her cancer treatment, however she has missed several appointments and treatments secondary to her weakness. She has discussed this with her son Hi. Liaison meeting with her this morning to discuss hospice services. Patient is asking about moving to assisted living. She currently lives with her son, Hi, who is also her healthcare power of insurance attorney. She also has her sister, Carri helping every day. It is unclear if she will be able to return home safely due to her weakness, there are several steps to get into the home and this is very difficult for Vandana. FORMERLY [facility], [facility]–1983 Medical History Anxiety and depression Asthma Cancer COPD (chronic obstructive pulmonary disease) Depression Former smoker Healthcare-associated pneumonia Hyperlipidemia Hypertension On home oxygen therapy Pneumonia TIA (transient ischemic attack) Home Medications albuterol sulfate 2 puff INHALATION Q4H PRN PRN 09/17/20 [History Last Taken 09/17/20] cholecalciferol (vitamin D3) 2,000 unit PO DAILY 09/17/20 [History Last Taken 09/16/20] escitalopram oxalate 20 mg PO DAILY 09/17/20 [History Last Taken 09/16/20] famotidine 20 mg PO QHS 09/17/20 [History Last Taken 09/16/20] folic acid 1 mg PO DAILY@0800 09/17/20 [History Last Taken 09/16/20] gabapentin 300 mg PO QHS 09/17/20 [History Last Taken 09/16/20] magnesium chloride 71.5 mg PO BID 09/17/20 [History Last Taken 09/17/20] potassium chloride 10 meq PO BID 09/17/20 [History Last Taken 02/03/21 22:00] pravastatin 20 mg PO DAILY 09/17/20 [History Last Taken 09/16/20] prochlorperazine maleate 10 mg PO BID 09/17/20 [History Last Taken 02/03/21 22:00] Oxygen, Home [Home Oxygen] 2 - 4 lpm NASAL CONT 02/04/21 [History Last Taken Unknown] docusate sodium [DOK] 100 mg PO BID PRN PRN 02/04/21 [History Last Taken Unknown] loperamide 4 mg PO DAILY 02/04/21 [History Last Taken Unknown] Allergy/AdvReac Type Severity Reaction Status Date / Time Iodinated Contrast Media Allergy Shortness Verified 02/04/21 07:10 [CONTRASTS] of breath pseudoephedrine HCl Allergy Shortness Verified 02/04/21 07:10 [From Sudafed] of breath sertraline [From Zoloft] Allergy Shortness Verified 02/04/21 07:10 of breath Family History Mother Heart disease Father Cancer Surgical History H/O section History of appendectomy Social History household members: family Smoking Status: Former smoker alcohol intake: never substance use type: does not use ROS ROS Narrative Review of systems otherwise negative from a constitutional, HEENT, respiratory, cardiovascular, GI, genitourinary, musculoskeletal, skin, neurologic, psychiatric and hematologic system unless stated above. Physical Exam Const alert, oriented x3 and no apparent distress General Appearance: cooperative Neck supple General: trachea midline Chest Chest Narrative: port R chest, intact Resp Effort and Inspection: able to speak in complete sentences Auscultation: rhonchi throughout, wheezes expiratory wheezes (mild) and diminished lung sounds Cardio regular rate, regular rhythm, S1 normal heart sound and S2 normal heart sound GI normal to inspection, nondistended, normoactive bowel sounds Extremity no clubbing, cyanosis or edema Skin no rashes or lesions noted Skin Narrative: scattered bruising Neuro CN's II-XII intact bilaterally and no focal motor deficits Psych mental status grossly normal Speech: normal speech Attention / Concentration: attention grossly intact Insight: insight good Judgement: judgement good Assessment & Plan Assessment/Plan (1) Weakness: (2) Dyspnea: QUALIFIERS: Dyspnea type: shortness of breath Qualified Code(s): R06.02 - Shortness of breath (3) Fall: QUALIFIERS: Encounter type: initial encounter Qualified Code(s): W19.XXXA - Unspecified fall, initial encounter (4) Pneumonia: QUALIFIERS: Laterality: right Lung location: lower lobe of lung Pneumonia type: due to unspecified organism Qualified Code(s): J18.9 - Pneumonia, unspecified organism (5) Acute UTI: (6) COPD (chronic obstructive pulmonary disease): QUALIFIERS: COPD type: COPD with acute lower respiratory infection Qualified Code(s): J44.0 - Chronic obstructive pulmonary disease with (acute) lower respiratory infection (7) Asthma: QUALIFIERS: Asthma complication type: unspecified Asthma persistence: unspecified Asthma severity: unspecified severity Qualified Code(s): J45.909 - Unspecified asthma, uncomplicated PLAN: 66-year-old female with small cell lung cancer, currently receiving immunotherapy, seen today for palliative follow-up. Apparently she had been voicing interest in hospice services, however still would like to possibly pursue treatment. 1. Weakness: She is not tolerating her cancer treatment. Patient is progressively getting more weak. We will await her decision whether she wants to enroll in hospice services. Otherwise, I feel she would need residential placement for more assistance. Continue with therapy 2. Shortness of breath: Appears to be controlled at this time for the most part. We have tried oxycodone in the past for her shortness of breath, she does not tolerate it very well. She felt worse when taking it previously. We could try some Ativan 0.5 mg p.o. every 4 hours as needed for shortness of breath. 3. Pneumonia: Continues with IV antibiotics and bronchodilators. As needed Zofran. Remains stable on 4 L of oxygen supplementation. Continue per recommendations of hospital team. 4. COPD/asthma/acute UTI: Complicates overall care, management, recovery, and prognosis. She is being treated for the UTI. Cultures are pending. Defer management to hospitalist/specialists. Thank you for the opportunity to participate in this patient's care, please do not hesitate to contact [facility] with any further questions or concerns. Palliative direct line is [phone]. We will await patient's decision whether she wants to continue with palliative or transition to hospice at this time. Greater than 50% of F2F visit dedicated to education and counseling of palliative care services, medications, comorbid conditions and potential assistance with management, and plan of care moving forward. Start time: 945 End time: 1040
--- NOTE | 2021-02-05 11:18 | CASEMGMT ---
Hospice met w/pt and son, the plan is for pt to go home tomorrow on hospice. Pt will need an ambulance transport home. As per hospice, they will have DME delivered tomorrow, and pt can go home after that, it is anticipated this will be tomorrow afternoon. Son plans to wide area network systems administrator so he can provide 24 hour care for pt at home. Son requested a letter stating pt needs 24 hour care. SW spoke w/MEDICAL RESEARCH TECH informed her plan is discharge tomorrow with hospice at home. She is in agreement that pt needs 24 hour care at home. Pt signed release, SW wrote letter and gave to son to give to his employer. Plan: Home w/hospice on 02/06/21 TIFFANIE Patten
[2021-02-05] MEDS: Albuterol 2.5 MG/3 ML VIAL.NEB. INHALATION ×2 (11:31→17:54)
--- NOTE | 2021-02-05 11:57 | PCM.PN.HOSP ---
Documented by User: Anabelle Schwab NP-C 02/05/21 12:20 Subjective Subjective Patient seen and examined. Son at bedside awaiting hospice consult. Patient denies current complaints. Plan is for patient to be discharged home tomorrow with hospice Objective Data Objective Data Vital Signs: Vital Signs Temp Pulse Resp BP Pulse Ox 98.3 F 104 H 18 115/83 H 95 02/05/21 10:00 02/05/21 10:00 02/05/21 10:00 02/05/21 10:00 02/05/21 10:00 Oxygen Flow Rate (L/min) 4 Oxygen Delivery Method Nasal Cannula Weight: 159 lb 13.362 oz Body Mass Index (BMI) 28.3 Intake & Output: Intake and Output for Last 24 Hours 02/03/21 02/04/21 02/05/21 23:59 23:59 23:59 Intake Total 1615.00 / 1615.00 2373.33 / 2373.33 Output Total 300 / 300 700 / 700 Balance 1315.00 / 1315.00 1673.33 / 1673.33 Medical Nutrition Assessment Dietitian: Nutrition Therapy Diagnosis Start: 02/04/21 13:54 Freq: Status: Active Protocol: Document 02/04/21 13:54 RMA (Rec: 02/04/21 13:56 RMA [id number]) Nutrition Malnutrition Evidence of Malnutrition Exists Yes Malnutrition (severe): Chronic Evidenced By Suboptimal Energy Intake ( Severe),Weight Loss (Severe) Clinical Problem Acute Disease or Injury Related Malnutrition Etiology severe acute protein-calorie malnutrition in the context of chronic illness r/t inadequate protein-energy intake, increased energy expenditure d/t catabolic illness Signs/Symptoms as evidenced by pt report of ongoing poor appetite and intake meeting </=50% of estimated energy needs xpast 2 -4 months, and unintentional weight loss of 20% x2-4 months . Status Active Problem Recommendation Dietitian Recommendations/Changes Continue liberal regular/ general diet. Add vanilla ensure enlive 120mL PO 4x/day at medpass ( 700 calories, 20g of protein) Add vanilla magic cup BID at lunch and dinner. (580 calories, 18g protein) Lab / Micro Data Result Diagrams: 02/05/21 06:04 02/05/21 06:04 Labs: Laboratory Results - last 24 hr 02/05/21 06:04: WBC 5.7, RBC 3.59 L, Hgb 10.7 L, Hct 35.1 L, MCV 97.8, MCH 29.8, MCHC 30.5 L, RDW Std Deviation 56.5 H, RDW Coeff of Amanuel 15.8 H, Plt Count 178, MPV 9.9, Immature Gran % (Auto) 1.200 H, Neut % (Auto) 69.3, Lymph % (Auto) 19.9, [place] % (Auto) 8.1, Eos % (Auto) 1.1, Baso % (Auto) 0.4, Absolute Neuts (auto) 3.9, Absolute Lymphs (auto) 1.13, Nucleated RBC % 0 02/05/21 06:04: Sodium 136, Potassium 3.7, Chloride 101, Carbon Dioxide 29.0, Anion Gap 6, BUN 10, Creatinine 0.48 L, Estim Creat Clear Calc 44.54, Est GFR (MDRD) Af Amer 167, Est GFR (MDRD) Non-Af 138, BUN/Creatinine Ratio 21.0 H, Glucose 81, Calcium 8.7 Micro: Microbiology 02/04/21 08:10 Urine, Clean Catch Urine Culture - Preliminary Gram negative manfred 02/04/21 07:46 Mucosa - Nose SARS-CoV-2 Antigen (Rapid) - Final Physical Exam Const alert, oriented x3 and no apparent distress Orientation / Consciousness: awake, oriented to person, oriented to place and oriented to time HEENT normocephalic and head/scalp atraumatic Eyes conjunctivae normal and no scleral icterus Neck full ROM, supple and no JVD General: trachea midline Chest inspection of chest normal and palpation of chest normal Resp normal respiratory effort and normal air movement Auscultation: wheezes scattered wheezes Cardio regular rate, regular rhythm, S1 normal heart sound and S2 normal heart sound Peripheral Pulses: pulses 2+ throughout GI normal to inspection, nondistended, normoactive bowel sounds, soft to palpation and non-tender Back/Spine normal ROM and normal to inspection Extremity normal to inspection, full ROM, normal capillary refill and no clubbing, cyanosis or edema Skin no rashes or lesions noted, no wounds and skin turgor normal Lesions: no lesions Rashes: no rashes Trauma: no lacerations or abrasions Neuro oriented x3, moves all extremities, no focal motor deficits and no sensory deficits noted Psych mental status grossly normal and affect normal Assessment & Plan Assessment/Plan (1) Acute UTI: (2) Weakness: PLAN: 1. Acute UTI - Urine culture pending. -IV azithromycin and IV Rocephin. -Adequate intake and output 2. Possible community-acquired right lower lobe pneumonia -IV azithromycin and IV Rocephin. -Covid negative. Urine culture pending. 3. Debility -Patient reports worsening weakness with fall at home. -PT/OT. -Per patient request hospitalist was consulted and following consult patient will be discharged home with hospice tomorrow. 4. COPD with chronic hypoxic respiratory failure -On 4 L nasal cannula at baseline. -As needed albuterol aerosol. 5. Chronic kidney disease stage II -stable. 6. Small cell lung cancer - following with Dr. Maldonado. -On immunotherapy. 7. Anxiety/depression -Continue Lexapro, Ativan. 8. Hypertension -Not currently on medication regimen -Vital signs stable, blood pressure well controlled. -Continue to monitor blood pressure. 9. Hyperlipidemia -continue statin. DVT prophylaxis-subcu Lovenox This patient was seen by Anabelle Schwab NP-C under the supervision of Dr. Zamora Documented by User: Dr. Swapnil Zamora MD 02/05/21 13:50 Objective Data Lab / Micro Data Result Diagrams: 02/05/21 06:04 02/05/21 06:04 Charges/Coding Addendum Addendum: Dr. Zamora: I personally reviewed the chart and examined the patient, and agree with the above findings. 66-year-old female with stage IV small cell lung cancer presents to the hospital with weakness. This has been getting worse over the last several days however she was too weak even 3 weeks ago to go for her immunotherapy for her cancer. In the ER she was found to have a UTI, urine culture was obtained and she was started on IV Rocephin, IV azithromycin was also added secondary to possible patchy infiltrates in her right lower lobe though this does not appear to be significantly different than what was seen in October. She currently is active with palliative care however would like to discuss her situation with hospice which will happen tomorrow morning around 9 AM. In the meantime we will continue with antibiotic therapy with transition to oral therapy on discharge. 02/05/2021:Urine culture still pending, it is positive for gram-negative manfred. We will continue with her antibiotics. She met with hospice this morning around 9 AM and in discussion between her and her son they have elected to proceed with home hospice. They would like to go home potentially tomorrow to give him some time to set up the house. Plan would be to continue oral antibiotics on discharge. Visit Charges Inpatient E&M: [id number] Subs Hosp L2
[2021-02-05] MEDS: Menthol/Lanolin/Calamine/Znox 113 GM Tube 1 APPLIC TOPICAL ×2 (14:27→19:04)
--- NOTE | 2021-02-05 18:53 | NURSING ---
called sonashwin with pt update. she has been resting comfortably, did not want dinner, only drank her ensure. allowing repositioning.
[2021-02-05] MEDS: Pravastatin 20 MG Tablet PO (23:17)
[2021-02-05] MEDS: Escitalopram Oxalate 20 MG Tablet PO (23:18)
[2021-02-05] MEDS: Gabapentin 300 MG Capsule PO (23:18)
[2021-02-05] MEDS: Famotidine 20 MG Tablet PO (23:18)
[2021-02-06] MEDS: Menthol/Lanolin/Calamine/Znox 113 GM Tube 1 APPLIC TOPICAL (05:10)
[2021-02-06 05:15] VITALS: BP 113/77; PULSE 87; RESP 18; TEMP 36.6; O2SAT 100
[2021-02-06 05:17] VITALS: O2SAT 100
[2021-02-06] MEDS: 0.9% Normal Saline 1,000 ML 100 ML IV (06:05)
[2021-02-06 06:10] LABS: Absolute Lymphocyte Count 1.06 X10^3/uL (0.83-4.51); Absolute Neutrophil Count 2.9 X10^3/uL (2.0-7.7); Basophil# 0.02 X10^3/uL; Basophil% 0.4 % (0-1); Eosinophil# 0.08 X10^3/uL; Eosinophils% 1.7 % (0-5); Hematocrit 33.1 % (37-47); Hemoglobin 10.6 g/dL (12.0-15.0); Lymphocyte # 1.06 X10^3/ul (0.83-4.51); Lymphocyte % 23.1 % (19-41); Mean Corpuscular Hgb 30.3 pg (27.0-32.0); Mean Corpuscular Volume 94.6 fL (81-99); Mean Platelet Vol. 9.7 fl (6.2-12.0); Monocyte# 0.43 X10^3/uL; Monocyte% 9.4 % (0-10); NRBC Flagged by Analyzer 0 % (0-5); Neutrophil # 2.91 X10^3/uL (2.7-7.7); Neutrophil % 63.4 % (47-70); Platelet Count 168 K/mm3 (150-450); RBC Distribution Width CV 15.9 % (11.6-14.6); RBC Distribution Width SD 54.9 fl (35.1-43.9); White Blood Count 4.6 K/mm3 (4.4-11.0)
[2021-02-06 06:53] LABS: ALB/GLOB Ratio 0.7 RATIO (0.9-2.4); AST(SGOT) 20 U/L (15-37); Alanine Aminotransfer ALT/SGPT 16 U/L (13-56); Albumin, Serum 2.2 g/dL (3.2-5.0); Alkaline Phosphatase 41 U/L (45-117); Anion Gap 7 (5-15); BUN 7 mg/dL (7-18); BUN/Creat Ratio 20.6 RATIO (10-20); Calcium,Total 8.6 mg/dL (8.5-10.1); Chloride 104 mmol/L (98-107); Creatinine, Serum 0.34 mg/dL (0.55-1.02); EST Glomerular Filtration Rate 204 mL/min (>60); Est Glom Filt Rate - Afr Amer 247 mL/min (>60); Estimated Creatinine Clearance 44.54 ml/min; Globulin 3.2 g/dL (2.2-4.2); Glucose 91 mg/dL (74-106); Potassium 3.3 mmol/L (3.5-5.1); Protein, Total 5.4 g/dL (6.4-8.2); Sodium Level 138 mmol/L (136-145)
[2021-02-06] MEDS: Loperamide 2 MG Capsule 4 MG PO (08:28)
[2021-02-06] MEDS: Enoxaparin 40 MG/0.4 ML Syringe SC (08:28)
[2021-02-06] MEDS: Folic Acid 1 MG Tablet PO (08:28)
[2021-02-06 08:58] VITALS: BP 124/85; PULSE 98; RESP 16; TEMP 36.5; O2SAT 98
--- NOTE | 2021-02-06 09:12 | CASEMGMT ---
Addendum entered by Tata Louie 02/06/21 11:26: Pt is ready for discharge home w/hospice, SW faxed all discharge paperwork to [facility]. SW set up a 1pm ambulance w/[facility]. SW let pt's RN, pt, and pt's son know, SW also let Khadar at [facility] know. Son states the DME has not been delivered yet. SW asked son to call this SW if it is not delivered by 12:30, and we will push the transportation back. Otherwise, no further needs, pt home on hospice today. TIFFANIE Patten Addendum entered by Tata Louie 02/06/21 09:18: SW spoke w/Pooja at [facility], the DME will be delivered between 10am-12pm. SW will set up transport for early afternoon, once all discharge instructions are completed. TIFFANIE Patten Original Note: SW called [facility] to ask when the DME will be delivered, they will call this SW back. TIFFANIE Patten
[2021-02-06] MEDS: Ceftriaxone 1 GM/50 ML BAG IV (10:18)
[2021-02-06] MEDS: NYSTATIN 500,000 UNIT/5 ML UDC 500000 UNIT PO (10:19)
--- NOTE | 2021-02-06 10:52 | DCINST_ITS ---
Discharge Instructions Follow Up Care Test Results: Test results from this visit will be discussed in further detail at your follow-up appointment, if applicable. Discharge Plan Admission Admit Date/Time: 02/04/21 09:25 Primary Reason for Your Visit: UTI and Weakness Attending Provider: Swapnil Zamora Primary Care Provider: Jose Tafoya Consulting Providers: Jocelyn Corona ; Hi Velásquez ; Ekaterina Smalls ; Shannan Dodson ; Mayra Love ; Nevin Garcia [employer] Instructions Patient Instructions: Understanding Urinary Tract ... Discharge Orders/Prescriptions Prescriptions: New cefdinir 300 mg capsule 300 mg PO BID 5 Days Qty: 10 RF: 0 Continued famotidine 20 MG tablet 20 mg PO QHS RF: 0 folic acid 1 MG tablet 1 mg PO DAILY@0800 RF: 0 pravastatin 20 MG tablet 20 mg PO DAILY RF: 0 cholecalciferol (vitamin D3) 2,000 UNIT capsule 2,000 unit PO DAILY RF: 0 prochlorperazine maleate 10 MG tablet 10 mg PO BID RF: 0 gabapentin 300 MG capsule 300 mg PO QHS RF: 0 escitalopram oxalate 20 MG tablet 20 mg PO DAILY RF: 0 potassium chloride 10 MEQ tablet,ER particles/crystals 10 meq PO BID RF: 0 magnesium chloride 71.5 MG tablet,delayed release (DR/EC) 71.5 mg PO BID RF: 0 albuterol sulfate 1 INHALER inhaler 2 puff INHALATION Q4H PRN PRN (Reason: Wheezing) RF: 0 loperamide 2 mg Capsule 4 mg PO DAILY RF: 0 docusate sodium [DOK] 100 mg capsule 100 mg PO BID PRN PRN (Reason: Constipation) RF: 0 Oxygen, Home [Home Oxygen] 2 - 4 lpm NASAL CONT RF: 0 Referrals / Follow Up: Jose Tafoya DO [Primary Care Provider] - Disposition Disposition (needs filled in before D/C Order can be placed): Hospice in Home
--- NOTE | 2021-02-06 11:06 | PCM.DC.SUM ---
Documented by User: KIKO Dash 02/06/21 11:12 Providers Date of Admission: 02/04/21 Primary Care Physician: Dr. Jose Tafoya, Consultations 02/04/21 11:46 Consult: Hospice / Palliative Care Routine Consulting Provider: [facility] Reason for Consult: Hospice to meet w/pt and family EMERGENT Consult: No MD Notified: Yes Date Notified: 02/04/21 Time Notified: 11:46 Method of Notification: per SW, called office Reason For Visit: UTI AND WEAKNESS Diagnosis Discharge Diagnosis (1) Acute UTI: Status: Acute Code(s): N39.0 - Urinary tract infection, site not specified (2) Weakness: Status: Acute Code(s): R53.1 - Weakness Plan: 1. Acute UTI - Urine culture positive for Ecoli. -Will send patient home on cefdinir to complete antibiotic course. -Courage adequate intake and output 2. Possible community-acquired right lower lobe pneumonia -Covid negative. 3. Debility -Patient reports worsening weakness with fall at home. -PT/OT. -Patient to be discharged with home hospice. 4. COPD with chronic hypoxic respiratory failure -On 4 L nasal cannula at baseline. -As needed albuterol aerosol. 5. Chronic kidney disease stage II -stable. 6. Small cell lung cancer - following with Dr. Maldonado. -On immunotherapy. 7. Anxiety/depression -Continue Lexapro, Ativan. 8. Hypertension -Not currently on medication regimen -Vital signs stable, blood pressure well controlled. -Continue to monitor blood pressure. 9. Hyperlipidemia -continue statin. DVT prophylaxis-subcu Lovenox This patient was seen by [facility] under the supervision of Dr. Zamora Medications at Discharge Home Medications albuterol sulfate 2 puff INHALATION Q4H PRN PRN 09/17/20 cholecalciferol (vitamin D3) 2,000 unit PO DAILY 09/17/20 escitalopram oxalate 20 mg PO DAILY 09/17/20 famotidine 20 mg PO QHS 09/17/20 folic acid 1 mg PO DAILY@0800 09/17/20 gabapentin 300 mg PO QHS 09/17/20 magnesium chloride 71.5 mg PO BID 09/17/20 potassium chloride 10 meq PO BID 09/17/20 pravastatin 20 mg PO DAILY 09/17/20 prochlorperazine maleate 10 mg PO BID 09/17/20 Oxygen, Home [Home Oxygen] 2 - 4 lpm NASAL CONT 02/04/21 docusate sodium [DOK] 100 mg PO BID PRN PRN 02/04/21 loperamide 4 mg PO DAILY 02/04/21 cefdinir 300 mg PO BID 5 Days #10 cap 02/06/21 Hospital Course Operations None Procedures EKG Summary of Care Provided Minutes Spent on Discharge: 35 Physical Exam Const alert, oriented x3 and no apparent distress HEENT normocephalic and head/scalp atraumatic Eyes conjunctivae normal and no scleral icterus Neck full ROM, supple and no JVD General: trachea midline Chest inspection of chest normal and palpation of chest normal Resp normal respiratory effort, normal air movement and clear to auscultation bilaterally Cardio regular rate, regular rhythm, S1 normal heart sound and S2 normal heart sound GI normal to inspection, nondistended, normoactive bowel sounds, soft to palpation and non-tender Back/Spine normal ROM Extremity normal to inspection, full ROM, normal capillary refill and no clubbing, cyanosis or edema Skin no rashes or lesions noted, no wounds and skin turgor normal Neuro oriented x3, moves all extremities, no focal motor deficits, no sensory deficits noted and gait normal Psych mental status grossly normal, thought process normal, cooperative, affect normal and speech normal Medical Records Data Medical Nutrition Assessment Dietitian: Nutrition Therapy Diagnosis Start: 02/04/21 13:54 Freq: Status: Active Protocol: Document 02/04/21 13:54 RMA (Rec: 02/04/21 13:56 RMA [id number]) Nutrition Malnutrition Evidence of Malnutrition Exists Yes Malnutrition (severe): Chronic Evidenced By Suboptimal Energy Intake ( Severe),Weight Loss (Severe) Clinical Problem Acute Disease or Injury Related Malnutrition Etiology severe acute protein-calorie malnutrition in the context of chronic illness r/t inadequate protein-energy intake, increased energy expenditure d/t catabolic illness Signs/Symptoms as evidenced by pt report of ongoing poor appetite and intake meeting </=50% of estimated energy needs xpast 2 -4 months, and unintentional weight loss of 20% x2-4 months . Status Active Problem Recommendation Dietitian Recommendations/Changes Continue liberal regular/ general diet. Add vanilla ensure enlive 120mL PO 4x/day at [employer] ( 700 calories, 20g of protein) Add vanilla magic cup BID at lunch and dinner. (580 calories, 18g protein) Weight / BMI Weight Weight: 159 lb 13.362 oz Body Mass Index (BMI) 28.3 ABG / Lab / Microbiology Data Result Diagrams: 02/06/21 05:35 02/06/21 05:35 Laboratory: Laboratory Results - last 24 hr 02/06/21 05:35: WBC 4.6, RBC 3.50 L, Hgb 10.6 L, Hct 33.1 L, MCV 94.6, MCH 30.3, MCHC 32.0, RDW Std Deviation 54.9 H, RDW Coeff of Amanuel 15.9 H, Plt Count 168, MPV 9.7, Immature Gran % (Auto) 2.000 H, Neut % (Auto) 63.4, Lymph % (Auto) 23.1, [place] % (Auto) 9.4, Eos % (Auto) 1.7, Baso % (Auto) 0.4, Absolute Neuts (auto) 2.9, Absolute Lymphs (auto) 1.06, Nucleated RBC % 0 02/06/21 05:35: Sodium 138, Potassium 3.3 L, Chloride 104, Carbon Dioxide 27.0, Anion Gap 7, BUN 7, Creatinine 0.34 L, Estim Creat Clear Calc 44.54, Est GFR (MDRD) Af Amer 247, Est GFR (MDRD) Non-Af 204, BUN/Creatinine Ratio 20.6 H, Glucose 91, Calcium 8.6, Total Bilirubin 0.40, AST 20, ALT 16, Alkaline Phosphatase 41 L, Total Protein 5.4 L, Albumin 2.2 L, Globulin 3.2, Albumin/Globulin Ratio 0.7 L Microbiology: Microbiology 02/04/21 08:10 Urine, Clean Catch Urine Culture - Final Escherichia coli 02/04/21 07:46 Mucosa - Nose SARS-CoV-2 Antigen (Rapid) - Final D/C Instructions Discharge Diet: No restrictions Weight Bearing Status: Weight bearing as tolerated and Full weight bearing Meaningful Use Info Meaningful Use Diagnoses (Choose all that apply): None applicable Discharge Plan Admission Admit Date/Time: 02/04/21 09:25 Primary Reason for Your Visit: UTI and Weakness Attending Provider: Swapnil Zamora Primary Care Provider: Jose Tafoya Consulting Providers: Jocelyn Corona ; Hi Velásquez ; Ekaterina Smalls ; Shannan Dodson ; Mayra Love ; Nevin Garcia [employer] Instructions Patient Instructions: Understanding Urinary Tract ... Discharge Orders/Prescriptions Prescriptions: New cefdinir 300 mg capsule 300 mg PO BID 5 Days Qty: 10 RF: 0 Continued famotidine 20 MG tablet 20 mg PO QHS RF: 0 folic acid 1 MG tablet 1 mg PO DAILY@0800 RF: 0 pravastatin 20 MG tablet 20 mg PO DAILY RF: 0 cholecalciferol (vitamin D3) 2,000 UNIT capsule 2,000 unit PO DAILY RF: 0 prochlorperazine maleate 10 MG tablet 10 mg PO BID RF: 0 gabapentin 300 MG capsule 300 mg PO QHS RF: 0 escitalopram oxalate 20 MG tablet 20 mg PO DAILY RF: 0 potassium chloride 10 MEQ tablet,ER particles/crystals 10 meq PO BID RF: 0 magnesium chloride 71.5 MG tablet,delayed release (DR/EC) 71.5 mg PO BID RF: 0 albuterol sulfate 1 INHALER inhaler 2 puff INHALATION Q4H PRN PRN (Reason: Wheezing) RF: 0 loperamide 2 mg Capsule 4 mg PO DAILY RF: 0 docusate sodium [DOK] 100 mg capsule 100 mg PO BID PRN PRN (Reason: Constipation) RF: 0 Oxygen, Home [Home Oxygen] 2 - 4 lpm NASAL CONT RF: 0 Referrals / Follow Up: Jose Tafoya DO [Primary Care Provider] - 02/11/21 1:40 pm (Meeting with the [employer] in Dr. Tafoya's office. ) Disposition Disposition (needs filled in before D/C Order can be placed): Hospice in Home Documented by User: Dr. Swapnil Zamora MD 02/06/21 11:52 Providers Date of Admission: 02/04/21 Reason For Visit: UTI AND WEAKNESS Medications at Discharge Home Medications albuterol sulfate 2 puff INHALATION Q4H PRN PRN 03/17/21 cholecalciferol (vitamin D3) 2,000 unit PO DAILY 09/17/20 escitalopram oxalate 20 mg PO DAILY 09/17/20 famotidine 20 mg PO QHS 09/17/20 folic acid 1 mg PO DAILY@0800 09/17/20 gabapentin 300 mg PO QHS 09/17/20 magnesium chloride 71.5 mg PO BID 09/17/20 potassium chloride 10 meq PO BID 09/17/20 pravastatin 20 mg PO DAILY 09/17/20 prochlorperazine maleate 10 mg PO BID 09/17/20 Oxygen, Home [Home Oxygen] 2 - 4 lpm NASAL CONT 02/04/21 docusate sodium [DOK] 100 mg PO BID PRN PRN 02/04/21 loperamide 4 mg PO DAILY 02/04/21 cefdinir 300 mg PO BID 5 Days #10 cap 02/06/21 ABG / Lab / Microbiology Data Result Diagrams: 02/06/21 05:35 02/06/21 05:35 Discharge Plan Admission Admit Date/Time: 02/04/21 09:25 Primary Reason for Your Visit: UTI and Weakness Attending Provider: Swapnil Zamora Primary Care Provider: Jose Tafoya Consulting Providers: Jocelyn Corona ; Hi Velásquez ; Ekaterina Smalls ; Shannan Dodson ; Mayra Love ; Nevin Garcia [employer] Instructions Patient Instructions: Understanding Urinary Tract ... Discharge Orders/Prescriptions Prescriptions: New cefdinir 300 mg capsule 300 mg PO BID 5 Days Qty: 10 RF: 0 Continued famotidine 20 MG tablet 20 mg PO QHS RF: 0 folic acid 1 MG tablet 1 mg PO DAILY@0800 RF: 0 pravastatin 20 MG tablet 20 mg PO DAILY RF: 0 cholecalciferol (vitamin D3) 2,000 UNIT capsule 2,000 unit PO DAILY RF: 0 prochlorperazine maleate 10 MG tablet 10 mg PO BID RF: 0 gabapentin 300 MG capsule 300 mg PO QHS RF: 0 escitalopram oxalate 20 MG tablet 20 mg PO DAILY RF: 0 potassium chloride 10 MEQ tablet,ER particles/crystals 10 meq PO BID RF: 0 magnesium chloride 71.5 MG tablet,delayed release (DR/EC) 71.5 mg PO BID RF: 0 albuterol sulfate 1 INHALER inhaler 2 puff INHALATION Q4H PRN PRN (Reason: Wheezing) RF: 0 loperamide 2 mg Capsule 4 mg PO DAILY RF: 0 docusate sodium [DOK] 100 mg capsule 100 mg PO BID PRN PRN (Reason: Constipation) RF: 0 Oxygen, Home [Home Oxygen] 2 - 4 lpm NASAL CONT RF: 0 Referrals / Follow Up: Jose Tafoya DO [Primary Care Provider] - 02/11/21 1:40 pm (Meeting with the [employer] in Dr. Tafoya's office. ) Disposition Disposition (needs filled in before D/C Order can be placed): Hospice in Home Charges/Coding Addendum Addendum: Dr. Zamora: I personally reviewed the chart and examined the patient, and agree with the above findings. 66-year-old female with stage IV small cell lung cancer presents to the hospital with weakness. This has been getting worse over the last several days however she was too weak even 3 weeks ago to go for her immunotherapy for her cancer. In the ER she was found to have a UTI, urine culture was obtained and she was started on IV Rocephin, IV azithromycin was also added secondary to possible patchy infiltrates in her right lower lobe though this does not appear to be significantly different than what was seen in October. She currently is active with palliative care however would like to discuss her situation with hospice which will happen tomorrow morning around 9 AM. In the meantime we will continue with antibiotic therapy with transition to oral therapy on discharge. 02/05/2021:Urine culture still pending, it is positive for gram-negative manfred. We will continue with her antibiotics. She met with hospice this morning around 9 AM and in discussion between her and her son they have elected to proceed with home hospice. They would like to go home potentially tomorrow to give him some time to set up the house. Plan would be to continue oral antibiotics on discharge. 02/06/2021: Urine culture comes back positive with pansensitive E. coli, she will complete 5 more days of cefdinir. She will go home today with hospice. Visit Charges Inpatient E&M: [id number] Disch Hosp
[2021-02-06] MEDS: Potassium Chloride Oral Soln 20 MEQ/15 ML UDC 40 MEQ PO (12:20)
[2021-02-06] MEDS: proCHLORPERazine 5 MG Tablet 10 MG PO (12:24)
[2021-02-06] MEDS: 0.9% Saline Lock 10 ML Syringe IV (12:27)
--- NOTE | 2021-02-06 12:34 | CASEMGMT ---
Son called and said the DME is being delivered. Plan will continue to be for pt to be picked up at 1pm to go home w/hospice. TIFFANIE Patten
== END 2021-02-06 12:57 | disposition hospice, home (50) | DRG 689 ==
LOC: ED 09:13 → MS3 09:56
PROVIDERS: Nurse Practitioner Family; Admitting Provider Family Medicine; Emergency Provider Emergency Medicine; PCP Student in an Organized Health Care Education/Training Program; Visit Provider Family Medicine
DX: N39.0 Urinary tract infection, site not specified (principal); J18.9 Pneumonia, unspecified organism; E43 Unspecified severe protein-calorie malnutrition; J44.0 Chronic obstructive pulmonary disease with (acute) lower respiratory infection; J96.11 Chronic respiratory failure with hypoxia; C34.90 Malignant neoplasm of unspecified part of unspecified bronchus or lung; B96.20 Unspecified Escherichia coli [E. coli] as the cause of diseases classified elsewhere; I12.9 Hypertensive chronic kidney disease with stage 1 through stage 4 chronic kidney disease, or unspecified chronic kidney disease; N18.2 Chronic kidney disease, stage 2 (mild); E78.5 Hyperlipidemia, unspecified; F32.9 Major depressive disorder, single episode, unspecified; F41.9 Anxiety disorder, unspecified; R53.81 Other malaise; Z51.5 Encounter for palliative care; Z79.899 Other long term (current) drug therapy; Z87.891 Personal history of nicotine dependence
CPT/HCPCS: 36415; 36591; 71045; 80048; 80053; 81001; 84484; 85025; 87077; 87086; 87088; 87186; 87426; 93005; 94640; 97116; 97162; 97166; 97802; 99285; J7030; A4216